=== PATIENT | female | born 1945 | race Caucasian/White ===

== ENCOUNTER 2016-05-19 17:55 | Inpatient (IN) | payer OTHER ==
[~2016-05-19] VITALS: Ht 160 cm; Wt 99.8 kg
[~2016-05-19 17:55] MED LIST: ALBUTEROL0.09 MG/A1 INH; ALBUTEROL2.5 MG/3 M INH/SOL; AZITHROMYCIN250 M1 PO; AZITHROMYCIN500 M3 PO; COUMADIN 5 MG TA5 MG PO; DOCUSATE SODIU100 MG PO; FERROUS SULFAT325 M1 PO; HYDROCHLOROTH12.5 M3 PO; IPRATROPIUM BROM3 M1 INH; LASIX20 MG PO; LEVOTHYROXINE0.05 MG PO; LEVOTHYROXINE125 MCG PO; MASON NATURAL325 MG PO; MEDROL4 M2 PO; MULTIVITAMINS1 EAC9 PO; NEORAL25 M1 PO; NEURONTIN300 MG PO; OXYCONTIN10 MG PO; PERCOCET 325 MG1 TA2 PO; PREDNISONE20 M1 PO; PRILOSEC 20MG C20 MG PO; PROTONIX 40MG T40 MG PO; PROTONIX40 M3 PO; SYMBICORT 160/41 PUF INH
--- NOTE | 2016-05-19 18:13 | ED DYSPNEA/ASTHMA COMPLAINT ---
History of Present Illness General Chief Complaint: Dyspnea (COPD, CHF, Other) Stated Complaint: SOB Source: patient Exam Limitations: no limitations Vital Signs & Intake/Output Vital Signs & Intake/Output Vital Signs Date Time Temp Pulse Resp B/P Pulse O2 O2 Flow FiO2 Ox Delivery Rate 05/19 2224 97.0 84 20 140/84 96 Nasal 4.0L Cannula 05/19 2040 98.1 88 22 140/60 96 Nasal 3.0L Cannula 05/19 BIPAP 40% 05/19 1900 97.2 100 22 100/60 05/19 1837 87 05/19 182 Nasal 4.0L Cannula 05/19 1824 91 22 108/60 96 Aerosol 5.0L Mask 05/19 180 97.0 Allergies Coded Allergies: Penicillins (Severe, ANAPHALACTIC 02/07/16) latex (Severe, "I BLEED ALL OVER" "PUS SPOTS" 02/07/16) Triage Nurses Notes Reviewed? yes HPI: Patient presents for evaluation of severe dyspnea. The patient herself is unable to provide history due to dyspnea and worsening lethargy. According to her family she does not have a history of COPD but instead asthma. She has had worsening of chronic extremity edema. (SAMI NEFF,JIMMY Guthrie) Reconcile Medications Acetaminophen (Tylenol Extra Strength) 500 MG TABLET 2 TAB PO PRN PAIN ( Reported) Albuterol Sulfate (Proair Hfa) 90 MCG HFA.AER.AD 2 PUF INH PRN ASTHMA ( Reported) Ascorbic Acid (Unknown Strength) TABLET (Unknown Dose) PO DAILY SUPPLEMENT ( Reported) Budesonide/Formoterol Fumarate (Symbicort 160-4.5 Mcg Inhaler) 160 MCG-4.5 MCG/ ACTUATION HFA.AER.AD 2 PUF INH BID ASTHMA (Reported) Cyclosporine 100 MG CAPSULE 1 CAP PO Q3D ECZEMA (Reported) Furosemide 20 MG TABLET 1 TAB PO PRN EDEMA (Reported) Gabapentin 300 MG CAPSULE 1 CAP PO 4XDAILY ECZEMA (Reported) Hydrochlorothiazide 12.5 MG CAPSULE 1 CAP PO DAILY BP/DIURETIC (Reported) (ISELA NEFF,CLAIRE) Past History Medical History Any Pertinent Medical History? 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 FATHER (hernia). Hx Contributory? No (SAMI NEFF,JIMMY Guthrie) Review of Systems Review of Systems Constitutional: Reports: no symptoms. EENTM: Reports: no symptoms. Respiratory: Reports: see HPI. Cardiovascular: Reports: no symptoms. GI: Reports: no symptoms. Genitourinary: Reports: no symptoms. Musculoskeletal: Reports: no symptoms. Skin: Reports: see HPI. Neurological/Psychological: Reports: no symptoms. Hematologic/Endocrine: Reports: no symptoms. Immunologic/Allergic: Reports: no symptoms. All Other Systems: Reviewed and Negative Comments Review of systems provided by family, patient unable to provide upon presentation. (SAMI NEFF,JIMMY Guthrie) Physical Exam Physical Exam Respiratory: SEE BELOW Comments: Gen.: Well-nourished, well-developed, no acute respiratory distress. Head: Normocephalic, atraumatic. Eyes: Normal inspection bilaterally, pupils midpoint and round bilaterally Ears: Normal inspection bilaterally Nose: Normal inspection Throat/mouth : Moist mucosa Neck: Supple, full range of motion, no goiter Heart: Regular rate and rhythm, no murmurs rubs or gallops Lungs: Decreased breath sounds bilaterally with no wheezes rales or rhonchi Chest: Nontender Back: Normal range of motion Abdomen: Soft, nontender, nondistended, normal bowel sounds Extremities: Normal range of motion grossly, equal radial pulses, no cyanosis, bilateral hand and ankle/foot pitting edema Neurologic: Cranial nerves grossly intact, speech unable to be assessED, Skin: [place] warm and dry Psychiatric: Calm, cooperative, no apparent delusions or hallucinations Core Measures ACS in differential dx? No Severe Sepsis Present: No Septic Shock Present: No (SAMI NEFF,JIMMY Guthrie) Progress Differential Diagnosis: METABOLIC ACIDOSIS, MYXEDEMA, DEHYDRATION, ALLERGIC REACTION, ELECTROLYTE ABNORMALITY Plan of Care: Orders Procedure Date/time Status Regular Diet 05/20 B Active CBC WITHOUT DIFFERENTIAL 05/20 06 Active BASIC ELECTROLYTES PLUS BUN&CR 03/03 0600 Active Pathway - chart 05/19 222 Active House Staff 05/19 222 Active Patient Data 05/19 222 Active Intake & Output 05/19 2218 Active LACTIC ACID 05/19 2200 Active Pathway - chart 05/19 2146 Active Patient Data 05/20 2135 Active OXYGEN SETUP (GEN) 05/19 2040 Active Saline Lock 05/19 2040 Active Admit to inpatient 05/19 2040 Active Vital Signs 05/19 2040 Active Activity/Ambulation 05/19 2040 Active Code Status 05/19 2040 Active Add-on Test (ER Only) 05/19 193 Active LACTIC ACID 05/19 1858 Complete ARTERIAL BLOOD GAS (GEN) 05/19 182 Active Telemetry/Spare Parts Clerk 05/19 181 Active TROPONIN LEVEL 05/19 1813 Complete MAGNESIUM 05/19 181 Complete CBC WITHOUT DIFFERENTIAL 05/19 181 Complete B-TYPE NATRIURETIC PEP (BNP) 05/19 181 Complete BASIC METABOLIC PANEL 05/19 181 Complete EKG 05/19 181 Active VTE Mechanical Prophylaxis 05/19 UNK Active Telemetry/Spare Parts Clerk 05/19 UNK Active Current Medications Sig/Desi Start time Last Medication Dose Stop Time Status Admin Enoxaparin Sodium 40 MG DAILY 05/20 1000 AC (Lovenox) Albuterol Sulfate 2 PUF BID 05/19 2200 AC (Ventolin) Budesonide/ 2 PUF BID 05/19 220 AC Formoterol Fumarate (Symbicort) Diphenhydramine HCl 25 MG Q6P PRN 05/19 2200 AC (Benadryl) Sodium Chloride 1,000 ML Q13H 05/19 220 AC (Normal Saline 0.9%) Acetaminophen 650 MG Q6P PRN 05/19 2144 AC (Tylenol) Acetaminophen 1,000 MG Q8P PRN 05/19 214 AC (Ofirmev) Ibuprofen 600 MG Q6P PRN 05/19 2144 AC (Motrin) Oxycodone HCl 5 MG Q6 PRN 05/19 2144 AC (Roxicodone) Levothyroxine Sodium 300 MCG ONCE ONE 05/19 1914 CAN (Synthroid) 05/19 191 Laboratory Tests 05/19/16 1901: Lactic Acid Cancelled 05/19/16 1858: Anion Gap 20 H, Estimated GFR > 60, BUN/Creatinine Ratio 8.8, Glucose 168 H, Lactic Acid 6.5 H, Calcium 9.5, Magnesium 1.3 L, Troponin I 0.02, Pro-B- Natriuretic Pept 113, CBC w Diff NO MAN DIFF REQ, RBC 4.50, MCV 114.8 H, MCH 38.5 H, RDW 18.1 H, MPV 7.6, Gran % 76.9 H, Lymphocytes % 19.9 L, Monocytes % 2.2, Eosinophils % 0.6, Basophils % 0.4, Absolute Granulocytes 9.5 H, Absolute Lymphocytes 2.5, Absolute Monocytes 0.3, Absolute Eosinophils 0.1, Absolute Basophils 0, PUBS MCHC 33.6 05/19/16 1820: pH 7.28 *L, pCO2 40, pO2 80, HCO3 18 L, ABG O2 Sat (Measured) 92.0 L, Carboxyhemoglobin 0.4 L, O2 Concentration % 6L, O2 Delivery Method NEB RX, Phlebotomy Draw Site LEFT RADIAL Initial ED EKG: rate (91), PATIENT'S UNDULATING BASELINE AND CLINICAL TREMORS MAKE THE UNDERLYING RHYTHM OBSCURE BUT i SUSPECT SINUS Prior EKG: unchanged Rhythm Strip: normal sinus rhythm Comments: 05/19/2016 6:58:28 PM patient placed on BiPAP upon arrival. She appears clinically more awake and alert is even answering questions. Blood gas reveals a metabolic acidosis with no signs of carbon monoxide poisoning. The patient has referral swelling and skin redness and pruritus so I have ordered Benadryl for the possibility of an allergic reaction. Given her history of hypothyroidism (patient has not taken her thyroid medicine over the past few days) I will order IV levothyroxin. Attempts at IV placement are ongoing. 05/19/2016 7:20:56 PM patient's case signed out to Dr. Weiss. IV established. (SAMI NEFF,JIMMY Guthrie) Diagnostic Imaging: Viewed by Me: Radiology Read. Discussed w/RAD: Radiology Read. CXR Impression: no acute abnormality, no infiltrates Comments: Improved after initial interventions. BiPAP discontinued. (ISELA NEFF,CLAIRE) Departure Departure Condition: Stable Referrals: CALDERON NEFF,JASON Hartmann (PCP/Family) Departure Forms: Customer Survey General Discharge Information (SAMI NEFF,JIMMY Guthrie) Departure Disposition: STILL A PATIENT Clinical Impression Primary Impression: COPD with exacerbation Secondary Impressions: Metabolic acidosis Admission Note Spoke With: INGA MD,AARTEE Documentation of Exam: Documentation of any treatments & extenuating circumstances including Concerns Regarding Discharge (functional status, medication knowledge or non-compliance, living conditions, etc.) that warrant an admission rather than observation: Supplemental oxygen serial lab exam serial beta agonist nebs medication adjustment pulmonary evaluation continuing care discharge planning (CLAIRE WEISS MD) Critical Care Note Critical Care Note Critical Care Time: 30-74 min (35) (CLAIRE WEISS MD)
--- NOTE | 2016-05-19 18:25 | NUR ---
RECEIVED 70 YO FEMALE BIBA FROM HOME. ACCORDING TO REPORT, PT HAD A SYNCOPE EPIODE ON TOILET WITH LOC X ONE MINUTE. UPON COMING TO, PT DEVELOPED ACUTE SOB. EMS ARRIVED AND O2 SATS WERE 83%. [facility] ARRIVED AND ADMINISTERED COMBI MED NEB TX. PT REFUSED ALL OTHER TREATMENTS FROM [facility] INCLUDING REFUSING IV. PT ARRIVED TO ED APPEARING SOMNOLENT IN APPEARANCE. PT REDDENED ALL OVER. O2 SATS 96% ON 6L O2 VIA MASK. PT NOT ANSWERING QUESTIONS AT THIS TIME. PT MADE ACUITY LEVEL [address] GALLARDO
[2016-05-19 19:05] LABS: ABSOLUTE BASOPHIL COUNT 0 /CUMM (0.0-0.2); ABSOLUTE EOSINOPHIL COUNT 0.1 /CUMM (0.0-0.7); ABSOLUTE GRANULOCYTE CT 9.5 /CUMM (1.4-6.5); ABSOLUTE LYMPH COUNT 2.5 /CUMM (1.2-3.4); ABSOLUTE MONOCYTE COUNT 0.3 /CUMM (0.10-0.60); BASOPHIL % 0.4 % (0.0-2.0); EOSINOPHIL % 0.6 % (0-5); GRANULOCYTE % 76.9 % (42.2-75.2); HEMATOCRIT 51.7 % (37-47); MEAN CORPUSCULAR HGB 38.5 PG (27.0-31.0); MEAN CORPUSCULAR HGB CONC 33.6 G/DL (33.0-37.0); MEAN CORPUSCULAR VOLUME 114.8 FL (81.0-99.0); MEAN PLATELET VOLUME 7.6 FL (7.4-10.4); PLATELET COUNT 240 /CUMM (130-400); RBC DISTRIBUTION WIDTH 18.1 % (11.5-14.5); WHITE BLOOD CELL COUNT 12.3 /CUMM (4.8-10.8)
--- NOTE | 2016-05-19 19:15 | NUR ---
EKG DONE. PT CONNECTED TO - NSR RESP THERAPIST IN TO ADMINISTER MED NEB TX, PERFORM ABG AND CONNECT PT TO BIPAP VENTILATION.
--- NOTE | 2016-05-19 19:17 | NUR ---
PT VERY DIFFICULT VENOUS ACCESS 20 G VOLODYMYR PLACED IN RAC BY MIKY Wakefield RN BLOOD DRAWN DIRECTED. PT MEDICATED DIRECTED, SEE MAR
--- NOTE | 2016-05-19 20:02 | RADIOLOGY REPORT ---
EXAMINATION: XR PORTABLE CHEST CLINICAL INFORMATION: Dyspnea. COMPARISON: 02/29/2016 TECHNIQUE: Portable AP view of the chest was obtained. FINDINGS: Cardiac leads overlie the chest. The lungs are well expanded. No consolidation, edema, or effusion. No pneumothorax. The cardiomediastinal silhouette is within normal limits. No acute osseous abnormality. IMPRESSION: No acute pulmonary findings.
--- NOTE | 2016-05-19 20:07 | NUR ---
BIPAP IN PROGRESS, PT TOLERATING WELL. PT MORE AWAKE AND ALERT AT PRESENT, ANSWERING QUESTIONS APPROPRIATELY
--- NOTE | 2016-05-19 20:11 | NUR ---
CRITICAL TEST RESULTS [id number] THALIA NARVAEZ 70 F TESTS AND RESULTS: LACTIC 6.5 Results received and read back by: KATHY MONTGOMERY Results received date and time: 05/19/162010 The following provider was notified of the results, and read the results back: DR. WEISS Notified date and time: 05/19/16 at 2011
--- NOTE | 2016-05-19 20:26 | NUR ---
TAKEN OFF BIPAP PER DR WEISS. PLACED ON O2 4LNC. PT MORE AWAKE & ALERT. REDNESS ON SKIN HAS DIMINISHED HAS HER LIP & FACIAL SWELLING.
--- NOTE | 2016-05-19 20:41 | NUR ---
PT C/O OF DIZZINESS, STATES SHE HAS FELT IT SINCE SHE CAME IN BUT HAS BECOME WORSE AFTER TAKING BIPAP OFF
--- NOTE | 2016-05-19 20:43 | NUR ---
PHARMACY MIXING MEDICATION NOW, DR WEISS AWARE OF DELAY IN MEDICATION.
[2016-05-19] MEDS ORDERED: GABAPENTIN300 M2 PO (20:52)
[2016-05-19] MEDS ORDERED: CYCLOSPORINE100 M2 PO (20:54)
[2016-05-19] MEDS ORDERED: SYMBICORT 16010.2 GM INH (20:56)
[2016-05-19] MEDS ORDERED: FUROSEMIDE20 M1 PO (20:57)
[2016-05-19] MEDS ORDERED: PROAIR HFA8.5 GM INH (20:57)
[2016-05-19] MEDS ORDERED: HYDROCHLOROTH12.5 M3 PO (20:59)
[2016-05-19] MEDS ORDERED: TYLENOL EXTRA500 M2 PO (21:00)
[2016-05-19] MEDS ORDERED: ASCORBIC ACID250 MG PO (21:00)
--- NOTE | 2016-05-19 22:16 | NUR ---
PT TO ROOM 179 BED 2
--- NOTE | 2016-05-19 22:28 | History & Physical ---
[facility] 05/19/16 2227: General Information and HPI MD Statement: I have seen and personally examined THALIA NARVAEZ and documented this H&P. The patient is a 70 year old F who presented with a patient stated chief complaint of dyspnea and lethargy. Source of Information: patient Exam Limitations: no limitations History of Present Illness: This is a 70-year-old morbidly obese lady with past medical history significant for eczema on cyclosporine therapy, asthma (no recent hx of hospitalization/ intubation), MAXIME not on CPAP, GERD, upper GI bleed, his BIBA for evaluation of dyspnea,lethargy and syncope. Patient states that she took 1200 mg of gabapentin with her cyclosporine medication due to her eczema flareup which has been present for the past 7 days. Patient also reports taking her levothyroxine 125 g which she had not taken for the past 3 days. She also admits drinking 1-2 glasses of wine and that she might have taken her meds with a glass of wine. Patient reports feeling drowsy, lethargic and lightheaded after taking her medication combo. She then experienced labored and lethargy. Patient decided to call her friend who came over to the patient's house and found the patient laying on one side of the bed with an altered mental status, and in a lethargic state. Friend reports patient proceded to having a syncopal event with noticeable cyanotic "blue" lips. EMS was then activated by friend. Saturation levels obtianed on the field was 83% on RA, patient was then put on NRB (sated94%) and was then brought to [facility]. Patient on arrival was somnolent, recieved BiPAP, and when seen later by medical admitting team, she was alert, oriented and able to give history in complete full sentences. Patient denies any recent infection, fever, chills, recent hospital admission for asthma exacerbation/intubation, increased cough, nausea, vomiting, chest pain, palpitation, abdominal pain or dysuria. Allergies/Medications Allergies: Coded Allergies: Penicillins (Severe, ANAPHALACTIC 02/07/16) latex (Severe, "I BLEED ALL OVER" "PUS SPOTS" 02/07/16) Home Med list Acetaminophen (Tylenol Extra Strength) 500 MG TABLET 2 TAB PO PRN PAIN ( Reported) Albuterol Sulfate (Proair Hfa) 90 MCG HFA.AER.AD 2 PUF INH PRN ASTHMA ( Reported) Ascorbic Acid (Unknown Strength) TABLET (Unknown Dose) PO DAILY SUPPLEMENT ( Reported) Budesonide/Formoterol Fumarate (Symbicort 160-4.5 Mcg Inhaler) 160 MCG-4.5 MCG/ ACTUATION HFA.AER.AD 2 PUF INH BID ASTHMA (Reported) Cyclosporine 100 MG CAPSULE 1 CAP PO Q3D ECZEMA (Reported) Furosemide 20 MG TABLET 1 TAB PO PRN EDEMA (Reported) Gabapentin 300 MG CAPSULE 1 CAP PO 4XDAILY ECZEMA (Reported) Hydrochlorothiazide 12.5 MG CAPSULE 1 CAP PO DAILY BP/DIURETIC (Reported) Past History Travel History Traveled to [place] past 21 day No Medical History Neurological: NONE EENT: NONE Cardiovascular: NONE Respiratory: asthma, COPD Gastrointestinal: GERD, upper GI bleed Hepatic: NONE Renal: NONE Musculoskeletal: ECZEMA Psychiatric: NONE Endocrine: NONE Blood Disorders: NONE Cancer(s): NONE 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 FATHER (hernia). Psychosocial History Services at Home: None Functional Ability ADLs Independent: dressing, eating, toileting, bathing. Ambulation: independent, cane, walker, non-ambulatory Review of Systems Review of Systems Constitutional: Reports: see HPI. EENTM: Denies: blurred vision, double vision. Cardiovascular: Denies: palpitations, peripheral edema. Respiratory: Reports: short of breath. GI: Denies: distention, bowel incontinence, melena. Genitourinary: Denies: frequency, hematuria, hesitation. Musculoskeletal: Denies: joint pain, joint swelling, muscle pain. Skin: Reports: rash. Neurological/Psychological: Denies: confusion, depressed, dementia, numbness. Hematologic/Endocrine: Denies: bruising, bleeding, polyuria, polydipsia. Immunologic/Allergic: Reports: no symptoms. All Other Systems: Reviewed and Negative Exam & Diagnostic Data Last 24 Hrs of Vital Signs/I&O Vital Signs Date Time Temp Pulse Resp B/P Pulse O2 O2 Flow FiO2 Ox Delivery Rate 05/20 0000 Nasal 4.0L Cannula 05/19 2308 97.7 91 20 160/82 96 Nasal 4.0L Cannula 05/19 2224 97.0 84 20 140/84 96 Nasal 4.0L Cannula 05/19 204 98.1 88 22 140/60 96 Nasal 3.0L Cannula 05/20 2007 96 BIPAP 40% 05/19 1900 97.2 100 22 100/60 05/19 1837 87 05/19 1825 Nasal 4.0L Cannula 05/19 1824 91 22 108/60 96 Aerosol 5.0L Mask 05/19 1804 97.0 Intake & Output 05/20 0800 05/20 0000 05/19 1600 Intake Total 120 Output Total Balance 120 Intake, Oral 120 Patient 99.79 kg Weight Physical Exam General Appearance Alert, Oriented X3, Cooperative Skin diffuse skin eruption with excoriations HEENT Atraumatic Neck No JVD, No thryomegaly Lymphatic Cervical nl Cardiovascular Regular Rate, Normal S1, Normal S2, No Murmurs, Gallops, Rubs Lungs Clear to Auscultation, Normal Air Movement Abdomen Normal Bowel Sounds, Soft, No Tenderness Neurological Normal Speech, Sensation Intact Extremities No Clubbing, No Cyanosis, No Tenderness/Swelling, b/l hand swelling Vascular Pulses Symmetrical Last 24 Hrs of Labs/Carlos: Laboratory Tests 05/20/16 0300: Urine Opiates Screen < 100.00, Methadone Screen 46, Barbiturate Screen < 60, Ur Phencyclidine Scrn < 6.00, Amphetamines Screen < 100, U Benzodiazepines Scrn < 85, Urine Cocaine Screen < 50, Urine Cannabis Screen < 5.00 05/20/16 0130: Lactic Acid 3.4 H, Troponin I 0.02 05/19/16 2252: Lactic Acid 3.0 H 05/19/16 1901: Lactic Acid Cancelled 05/19/16 1858: Anion Gap 20 H, Estimated GFR > 60, BUN/Creatinine Ratio 8.8, Glucose 168 H, Lactic Acid 6.5 H, Calcium 9.5, Magnesium 1.3 L, Troponin I 0.02, Pro-B- Natriuretic Pept 113, TSH 24.200 H, Free T4 1.06, CBC w Diff NO MAN DIFF REQ, RBC 4.50, MCV 114.8 H, MCH 38.5 H, RDW 18.1 H, MPV 7.6, Gran % 76.9 H, Lymphocytes % 19.9 L, Monocytes % 2.2, Eosinophils % 0.6, Basophils % 0.4, Absolute Granulocytes 9.5 H, Absolute Lymphocytes 2.5, Absolute Monocytes 0.3, Absolute Eosinophils 0.1, Absolute Basophils 0, PUBS MCHC 33.6 05/19/161819: pH 7.28 *L, pCO2 40, pO2 80, HCO3 18 L, ABG O2 Sat (Measured) 92.0 L, Carboxyhemoglobin 0.4 L, O2 Concentration % 6L, O2 Delivery Method NEB RX, Phlebotomy Draw Site LEFT RADIAL Diagnostic Data CXR Results SERVICE DATE: 05/19/16-1812 EXAM TYPE: RAD - XRY-PORTABLE CHEST XRAY EXAMINATION: XR PORTABLE CHEST CLINICAL INFORMATION: Dyspnea. COMPARISON: 02/29/2016 TECHNIQUE: Portable AP view of the chest was obtained. FINDINGS: Cardiac leads overlie the chest. The lungs are well expanded. No consolidation, edema, or effusion. No pneumothorax. The cardiomediastinal silhouette is within normal limits. No acute osseous abnormality. IMPRESSION: No acute pulmonary findings. DICTATED BY: KIKO ESPINO MD Assessment/Plan Assessment: This is a 70-year-old morbidly obese patient with a significant past medical history of obstructive sleep apnea not on CPAP, asthma?, Hypothyroidism, eczema presents for evaluation of dyspnea, and syncope .At the ED patient was placed on BiPAP on arrival. Assessment and plan #Acute dyspnea with syncope Patient has multiple comorbidities including obstructive sleep apnea, morbid obesity, hypothyroidism, asthma, which predisposes her to high risk of respiratory distress. Patient acute episode of dyspnea with syncope, could possibly secondary to drug poisoning from taking the medications not according to prescription directions (took gapentin 1200mg) in addition to a glass of wine. It is noted that her ABG does not reflect hypercapnia. Patient reports being cyanotic, carbon monoxide posoning is a differential, however carboxyhemoglobin levels obtained was unremarkable. Plan Admit to telemetry 02 supplementation to keep sats above 90% Will continue pulse oximetry will recheck ABGs Will check troponin Will obtain urine tox #Metabolic acidosis with anion gap Patient has decreased bicarbonate, normal ABG co2, and an elevated lactic acid level which is indicative of metabolic acisodis. Possible etiology for patient's lactic acidosis include hypoperfusion. Plan Will trend lactic acid level IV hydration NS 100ml/h #History of hypothyroidism Will obtain TSH and free T4 levels Patient was given 200 g of levothyroxine at the ED, possibly due to concerns of myxedema, in the setting of dyspnea and lethargy. #History of asthma Continue Symbicort and albuterol inhaler TRC/ nebs #History of severe eczema Continue cyclosporine for now As Ranked By This Provider Problem List: 1. Metabolic acidosis 2. Hypoxia Core Measures/Miscellaneous Acute Coronary Syndrome ACS Diagnosis: No Cerebrovascular Accident CVA/TIA Diagnosis: No Congestive Heart Failure CHF Diagnosis: No Venous Thromboembolism VTE Risk Factors: Age > 40 No [facility] VTE prophylaxis d/t: No contraindications No VTE Pharm Prophylaxis d/t: No contraindications VTE Diagnosis: No VTE Type: NONE VTE Confirmed by (Test): NONE Severe Sepsis Severe Sepsis Present: No Septic Shock Septic Shock Present: No Miscellaneous Documentation Attending Case Discussed With: SELENA XIONG MD Primary Care Physician: JASON MANCERA MD 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 Patient reported that she has been having eczema flare for the last 7 days, today she was having severe itchiness, she took 4 tablets of 300 mg of gabapentin with cyclosporine. She has not been taking her levothyroxine for couple of days, but today she took her dose of levothyroxine as well. After taking all the medication, she felt drowsy and lethargic and became lightheaded. Her lips turned blue, and her breathing was compromised. She called her friend and was found altered on the side of the bed, 911 was called in and she was immediately brought to the ER for further assessment. In the ED patient was found to be in acute distress, and was put on BiPAP ABGs revealed pure metabolic acidosis. She received one-time dose of IV Solu-Medrol 125 mg and IV Benadryl 50 mg and her symptoms improved. Also she received 1 dose of IV levothyroxin 200 mcg, in a view that patient was not taking her levothyroxin for quite a while. Vitals on admission temperature 97.2, pulse 100, blood pressure 100/60, off BiPAP saturating more than 92% on 4 L. General Appearance: Alert and oriented 3, not in acute distress. Skin: Grossly normal HEENT: PEERLA Neck: Supple, No JVD Cardiovascular: Regular Rate, Normal S1, Normal S2, No Murmurs Lungs: Lungs clear to auscultation bilaterally without any wheeze or rhonchi. Abdomen: Normal Bowel Sounds, left lower quadrant tenderness without any rebound. Neurological: Normal Speech, Strength at 5/5 X4 Ext, Cranial Nerves 3-12 NL, Reflexes 2+ Extremities: Generalized skin eruptions with excoriations, swelling bilaterally in the hands. Vascular: Normal Pulses . Pertinent labs: Leukocytosis 12.3 without any anemia, elevated anion gap 20, elevated lactic acid levels 6.5, hypomagnesemia 1.3\\ ABG done in the ED showed pH of 7.28, bicarbonate : 18, PCO2 40, PO2 20 Chest x-ray was normal Assessment and plan: This is [id number] woman obese cushingoid habitus, past medical history significant for GERD, upper GI bleed, eczema on cyclosporine, history of asthma, sleep apnea not on CPAP presented to the ED with a chief complaints of worsening dyspnea,lethargy and altered mental status for couple of hours, after she overdosed herself with gabapentin cyclosporine due to severe itchiness. In the ED patient was found to be in acute distress, and was put on BiPAP ABGs revealed pure metabolic acidosis. She received one-time dose of IV Solu-Medrol 125 mg and IV Benadryl 50 mg and her symptoms improved. Also she received 1 dose of IV levothyroxin 200 mcg, in a view that patient was not taking her levothyroxin for quite a while. 1. Acute respiratory distress with altered mental status possible drug toxicity /allergic reaction: * We'll admit the patient to telemetry floor for close monitoring. * We will recheck the ABG now * Continue with gentle hydration * By mouth Benadryl 25 mg every 8 hours as needed for itchiness * Trend lactate acid levels. * Check urine toxicology * Continue his pulse oximetry * Neurochecks every 4 hours * We will check another troponin. 2. History of hypothyroidism: * Will check TSH and free T4 levels. 3. History of hypertension * Hold hydrochlorothiazide for now. 4. History of severe eczema * Continue cyclosporine from the morning. * Hold gabapentin for now. 5. History of asthma, questionable COPD * Continue home medications including Symbicort and albuterol inhalers. * TRC nebs. 6. History of GERD * Continue PPI. 7. Mild to moderate pain controlled with Tylenol 8 DVT prophylaxis with Lovenox 9. Patient is full code SELENA XIONG 05/20/16 0454: Attending MD Review Statement Attending Statement Attending MD Statement: examined this patient, discuss w/resident/PA/J2EE SOFTWARE ENGINEER, agreed w/resident/PA/J2EE SOFTWARE ENGINEER, discussed with family, reviewed EMR data (avail), reviewed images, amended to note Attending Assessment/Plan: CC: Syncope, bluish discoloration, SOB pmh: Asthma, MAXIME not on CPAP, GERD, peptic ulcer, eczema, HTN, HLD, hypothyroidism She is supposed to be on Lasix, HCTZ, levothyroxine and PPI which she stopped taking all by herself because she is taking too many medications. She is compliant with her inhalers and Cyclospora and and gabapentin for eczema. Never smoked. She is to get very frequent asthma flares at home, but she removed all the drugs from her home and asthma flares are much better now. Patient's eczema was getting worse since yesterday according to her, intensely itching since the day before, all over her body. Next day her itching was worse and was not getting better with anything so she took several pills of gabapentin for symptom relief along with Cyclosporin. She also drinks a couple of glasses of wine every day, with meals. After all this medications patient was feeling very dizzy and almost passed out 2 to 3 times, she called her neighbor for help. Her neighbor found her in some distress, then later on patient passed out in front of neighbor and turned blue. So she called EMS. Patient was saturating 83% when EMS arrived and had acute shortness of breath. She received nebulization treatment and was placed on NRB, patient was somnolent at arrival in ER. Keron all over. Saturating 96% on mask. ABG was obtained and She patient was immediately put on BiPAP in ER for some time, before we were called. Patient was symptomatically better by that time, talking in complete sentences, shortness of breath better but complaining of some throat pain and dryness. Vitals: Afebrile, tachypneic, blood pressure 100/64 on presentation improved later on, initially on BiPAP for 2 hours later on 96% at 4 L on examination: Mild respiratory distress, obese, a O 3, neck supple, no JVD, pharynx congested , mucosa dry, no focal neurological deficits. CVS: S1-S2, RRR. RS: Clear to auscultate bilaterally. No wheezing, no crackles. Abdomen: Soft, obese, NT, ND, bowel sounds present., Mild pitting edema bilateral lower extremity. Extensive skin rash eczema, macular. Does not have hives or urticarial. Labs: WBC 12.3, hemoglobin 17.4, hematocrit 51.7, MCV 114, platelets 240, lactate 9.5, anion gap 20, proBNP 113, troponin 0.02. ABG: PH 7.28/PCO2 14/PaO2 80/bicarbonate 18 on 6 L. EKG: No acute changes. CXR: No acute changes. A and P #1 syncope: Probably secondary to polypharmacy and overdose, patient took multiple gabapentin tablets along with alcohol. According to friend patient would not be woken up and was bluish discoloration lips and fingers. Admit to telemetry, rule out arrhythmias, neurochecks, U tox. Had liver function test to sample in lab if not done. If LFT deranged obtain ammonia. Second possibility is patient may have had some allergic reaction with extensive itching all over with the redness and bronchospasm, and passing out after that. Patient received methylprednisolone in ER along with Benadryl in BiPAP treatment and now much better. Continue scheduled Benadryl 25 mg by mouth for 2 more doses. Continue gentle hydration and 75 mL per hour, if patient's more altered obtain ABG. Continuous pulse oxy overnight. #2 lactic acidosis: Probably secondary to hypotension and syncope. Patient may have had hypotension at field which is not documented her blood pressure was low in ER. No obvious source of infection. Possibility of seizures cannot be denied, but they were not witnessed, no postictal confusion, no bowel or bladder incontinence. Hypoxia may have contributed to lactic acidosis. Trend lactic acid , continue gentle hydration #3 noncompliance, patient is not taking her medications for hypothyroidism, hypertension and dyslipidemia. Obtain T3-T4 TSH, hold off antihypertensive for now. Monitor blood pressures overnight, HCTZ according to blood pressure. Patient received 200 g IV levothyroxin in ER. #4 asthma : TRC when necessary albuterol. Currently patient not having bronchospasm, AP she is not significant for any CO2 retention or respiratory acidosis. Patient refused repeat ABG. #5 metabolic acidosis: Probably secondary to lactic acidosis. Continue gentle hydration. Repeat BMP in a.m. #6 macrocytosis with MCV 114: History of alcoholism. Check vitamin B-12, folic acid.
--- NOTE | 2016-05-19 22:43 | NUR ---
PT ADMITTED TO ROOM # 179-2. ORAL REPORT GIVEN TO VIKA GREENE
[2016-05-19 23:08] VITALS: BP 160/82
--- NOTE | 2016-05-20 04:56 | Admission Certification ---
Admission Certification Certification Statement - As attending physician, I certify that at the time of - admission, based on clinical presentation, severity of - symptoms, need for further diagnostic testing and - therapeutic interventions, and risk of adverse outcomes - without in-hospital treatment, in my clinical assessment, - this patient requires an acute hospital stay for a minimum - of two nights or longer. I have also considered psychsocial - factors such as support system, advanced age, financial - issues, cognitive issues, and failed out-patient treatments, - past re-admission history, safety of patient, and lack of - compliance as applicable. Specific rationale supporting this admission is: Syncope, acute worsening of shortness of breath, lactic acidosis.
[2016-05-20 05:34] LABS: ABSOLUTE BASOPHIL COUNT 0.2 /CUMM (0.0-0.2); ABSOLUTE EOSINOPHIL COUNT 0 /CUMM (0.0-0.7); ABSOLUTE GRANULOCYTE CT 13.5 /CUMM (1.4-6.5); ABSOLUTE LYMPH COUNT 0.6 /CUMM (1.2-3.4); ABSOLUTE MONOCYTE COUNT 0.1 /CUMM (0.10-0.60); BASOPHIL % 1.2 % (0.0-2.0); EOSINOPHIL % 0 % (0-5); GRANULOCYTE % 93.9 % (42.2-75.2); MEAN CORPUSCULAR HGB 38.4 PG (27.0-31.0); MEAN CORPUSCULAR HGB CONC 33.6 G/DL (33.0-37.0); MEAN PLATELET VOLUME 7.8 FL (7.4-10.4); PLATELET COUNT 213 /CUMM (130-400); RBC DISTRIBUTION WIDTH 17.8 % (11.5-14.5); RED BLOOD CELL CT 4.02 /CUMM (4.20-5.40); WHITE BLOOD CELL COUNT 14.4 /CUMM (4.8-10.8)
[2016-05-20 05:55] LABS: MEAN CORPUSCULAR VOLUME 114.3 FL (81.0-99.0)
--- NOTE | 2016-05-20 07:02 | PN- Housestaff ---
JANA NEFF,COURTNEY 05/20/16 0702: Subjective Follow-up For: Syncope Lactic and metabolic acidosis Hypotension Possible drug overdose (gabapentin) Tele-Events Since Last Visit: NSR HR 72-90, no overnight events. Subjective: Patient seen and examined at bedside this AM. She reports her dypsnea is improved to baseline and she denies cough, wheezing or confusion. Patient continues to report she was given gabapentin for itching and she was counseled on not using gabapentin excessively and considering using benadryl (not while drinking or driving) for her itching. Review of Systems Constitutional: Denies: chills, fever, weakness. EENTM: Denies: blurred vision, visual changes, hearing changes, nasal congestion. Cardiovascular: Reports: syncope (Prior to admission). Denies: chest pain, palpitations. Respiratory: Denies: cough, short of breath, wheezing. Gastrointestinal: Denies: abdominal pain, bloating, constipation, diarrhea, nausea, vomiting. Genitourinary: Denies: dysuria. Musculoskeletal: Denies: back pain. Skin: Reports: dryness, lesions (Generalized excoriations). Neurological/Psychological: Reports: numbness, paresthesia. Denies: confusion, headache. Hematologic/Endocrine: Denies: bleeding. Objective Last 24 Hrs of Vital Signs/I&O Vital Signs Date Time Temp Pulse Resp B/P Pulse O2 O2 Flow FiO2 Ox Delivery Rate 05/20 0808 97.7 76 18 140/85 96 Nasal 4.0L Cannula 05/20 0800 92 Nasal 4.0L Cannula 05/20 0000 Nasal 4.0L Cannula 05/19 2308 97.7 91 20 160/82 96 Nasal 4.0L Cannula 05/19 2224 97.0 84 20 140/84 96 Nasal 4.0L Cannula 05/19 2041 98.1 88 22 140/60 96 Nasal 3.0L Cannula 05/19 2008 96 BIPAP 40% 05/19 1900 97.2 100 22 100/60 05/19 1837 87 05/19 1825 Nasal 4.0L Cannula 05/19 1824 91 22 108/60 96 Aerosol 5.0L Mask 05/19 1804 97.0 Intake & Output 05/20 1600 05/20 0800 05/20 0000 Intake Total 840 120 Output Total 700 Balance 140 120 Intake, IV 600 Intake, Oral 240 120 Output, Urine 700 Patient 220 lb Weight Physical Exam General Appearance: Alert, Oriented X3, Cooperative, No Acute Distress Skin: Generalized excoriations with noted scratch lines. No s/s infection. HEENT: Atraumatic, PERRLA, EOMI, Mucous Membr. moist/pink Neck: Supple, +2 Carotid Pulse wo Bruit Lymphatic: Cervical nl Cardiovascular: Regular Rate, Normal S1, Normal S2 Lungs: Decreased air entry bilaterally, no wheezing, rhonchi or added sounds Abdomen: Normal Bowel Sounds, Soft, No Tenderness Neurological: Normal Speech, Strength at 5/5 X4 Ext, Normal Tone Extremities: No Clubbing, No Cyanosis, No Edema Vascular: Pulses Symmetrical Current Medications: Current Medications Sig/Desi Start time Last Medication Dose Route Stop Time Status Admin Acetaminophen 650 MG .STK-MED ONE 05/20 0301 DC PO 05/20 0302 Acetaminophen 650 MG Q6P PRN 05/19 2145 05/20 PO 0815 Acetaminophen 1,000 MG Q8P PRN 05/19 2145 AC IV Albuterol Sulfate 2 PUF BID 05/19 2200 AC 05/20 INH 0807 Albuterol Sulfate 3 ML ONCE ONE 05/19 1815 DC 05/19 INH 05/19 1816 1817 Budesonide/ 2 PUF BID 05/19 2200 AC 05/20 Formoterol Fumarate INH 0805 Diphenhydramine HCl 25 MG Q8P PRN 05/20 0015 AC PO Diphenhydramine HCl 25 MG Q6P PRN 05/19 2200 DC IV Diphenhydramine HCl 0 .STK-MED ONE 05/19 1908 DC .ROUTE Diphenhydramine HCl 50 MG ONCE ONE 05/19 1845 DC 05/19 IV 05/19 1846 1914 Enoxaparin Sodium 40 MG DAILY 05/20 1000 AC SC Folic Acid 1 MG DAILY 05/20 1137 AC PO Ibuprofen 600 MG Q6P PRN 05/19 2145 AC PO Levothyroxine Sodium 200 MCG ONCE ONE 05/19 1930 DC 05/19 IV 05/19 1931 2157 Levothyroxine Sodium 300 MCG ONCE ONE 05/19 1915 CAN IV 05/19 1916 Magnesium Sulfate 1 GM ONCE ONE 05/20 0315 DC 05/20 N/A 1 UNIT IV 05/20 0514 0333 Magnesium Sulfate 1 GM ONCE ONE 05/20 0115 DC 05/20 N/A 1 UNIT IV 05/20 0314 0106 Methylprednisolone 0 .STK-MED ONE 05/19 1908 DC .ROUTE Methylprednisolone 125 MG ONCE ONE 05/19 1814 DC 05/19 IV 05/19 181 191 Oxycodone HCl 5 MG Q6 PRN 05/19 2145 DC PO Sodium Chloride 1,000 ML Q13H 05/19 2200 AC 05/20 IV 1003 Last 24 Hrs of Lab/Carlos Results Last 24 Hrs of Labs/Mics: Laboratory Tests 05/20/16 0858: Lactic Acid Cancelled 05/20/16 0510: Lactic Acid 2.8 H 05/20/16 0510: Anion Gap 11, Estimated GFR > 60, BUN/Creatinine Ratio 13.3, CBC w Diff NO MAN DIFF REQ, RBC 4.02 L, MCV 114.3 H, MCH 38.4 H, RDW 17.8 H, MPV 7.8, Gran % 93.9 H, Lymphocytes % 4.1 L, Monocytes % 0.8 L, Eosinophils % 0, Basophils % 1.2, Absolute Granulocytes 13.5 H, Absolute Lymphocytes 0.6 L, Absolute Monocytes 0.1 L, Absolute Eosinophils 0, Absolute Basophils 0.2, PUBS MCHC 33.6 05/20/16 0300: Urine Opiates Screen < 100.00, Methadone Screen 46, Barbiturate Screen < 60, Ur Phencyclidine Scrn < 6.00, Amphetamines Screen < 100, U Benzodiazepines Scrn < 85, Urine Cocaine Screen < 50, Urine Cannabis Screen < 5.00 05/20/16 0130: Lactic Acid 3.4 H, Total Bilirubin 1.4 H, Direct Bilirubin 1.0 H, AST 54 H, ALT 42, Alkaline Phosphatase 93, Troponin I 0.02, Total Protein 6.7, Albumin 3.6 05/19/16 2252: Lactic Acid 3.0 H 05/19/16 1901: Lactic Acid Cancelled 05/19/16 1858: Anion Gap 20 H, Estimated GFR > 60, BUN/Creatinine Ratio 8.8, Glucose 168 H, Lactic Acid 6.5 H, Calcium 9.5, Magnesium 1.3 L, Troponin I 0.02, Pro-B- Natriuretic Pept 113, Vitamin B12 291, Folate 2.3 L, TSH 24.200 H, Free T4 1.06, CBC w Diff NO MAN DIFF REQ, RBC 4.50, MCV 114.8 H, MCH 38.5 H, RDW 18.1 H, MPV 7.6, Gran % 76.9 H, Lymphocytes % 19.9 L, Monocytes % 2.2, Eosinophils % 0.6, Basophils % 0.4, Absolute Granulocytes 9.5 H, Absolute Lymphocytes 2.5, Absolute Monocytes 0.3, Absolute Eosinophils 0.1, Absolute Basophils 0, PUBS MCHC 33.6 05/19/16 1820: pH 7.28 *L, pCO2 40, pO2 80, HCO3 18 L, ABG O2 Sat (Measured) 92.0 L, Carboxyhemoglobin 0.4 L, O2 Concentration % 6L, O2 Delivery Method NEB RX, Phlebotomy Draw Site LEFT RADIAL Orders Radiology Findings: CXR: IMPRESSION: No acute pulmonary findings. Assessment/Plan Assessment: Ms. Ayala is a pleasant 70 year old female with PMH eczema on cyclosporine therapy, asthma with no recent history of hospitalization or intubation, MAXIME not on CPAP secondary to patient refusal, HTN, HLD, GERD and hypothyroidism who presented to the ED with chief complaint of syncope, shortness of breath and lethargy. Patient was transported to the hospital via EMS who noted to be hypoxic to 83% on room air. In the ED: Vital signs showed T 97.0, HR 91, RR 22, BP 108/60 and O2 saturation of 96% on 5L venti mask. Pertinent labs showed leukocytosis 12.3, no anemia, elevated anion gap to 20, elevated lactic acid level to 6.5 and hypomagnesemia 1.3. CXR showed no acute findings. ABG showed pH of 7.28, bicarbonate 18, PCO2 40, PO2 20. Patient is currently admitted to the telemetry floor and the following is the management: 1. Possible syncope with altered mental status with lethargy * Likely secondary to unintentional overdose/drug toxicity with gabapentin in the setting of alcohol use * Continous telemetry monitoring to rule out arrhythmia * Hold gabapentin for now, utox negative * Mentation currently returning to baseline 2. Acute respiratory failure with hypoxia in the setting of chronic asthma * Likely 2/2 overdose with gabapentin (1200 mg) resulting in decreased respiratory drive and hypoxia * DDimer has been added to workup, patient will also require CTA to rule out PE as cause of syncope * Pulm consult with Dr. Meyers appreciated * Provide supplemental O2 to keep sat >92%, continue * Continue home inhalers * Will obtain PFTs and sleep study workup from patient's pattern maker 3. Metabolic and lactic acidosis * ABG suggestive of metabolic acidosis * Metabolic acidosis likely 2/2 lactic acidosis from hypotension during syncope as EMS noted patient was hypotensive * Continue maitenance fluids for now 4. Medical noncompliance * Address need for patient to take gabapentin only as directed * Addressed the need for patient to use hydrocortisone cream (topical) for improved relief of itching FULL CODE Regular diet Mild pain pathway DVTP: SC Lovenox Problem List: 1. Metabolic acidosis 2. Hypoxia 3. Full code status 4. DVT prophylaxis 5. Eczema 6. Acute respiratory failure with hypoxia 7. Syncope Pain Ratin Pain Location: n/a Pain Goal: Remain pain free Pain Plan: Mild pain pathway Tomorrow's Labs & Rationales: CBC (monitor leukocytosis), BEP (monitor electrolytes with hypomagnesemia Patient refused some blood draws this AM LAUREN BETANCUR MD 05/20/16 1400: Attending MD Review Statement Attending Statement Attending MD Statement: examined this patient, discuss w/resident/PA/ASSET LIABILITY ANALYST, agreed w/resident/PA/ASSET LIABILITY ANALYST, reviewed EMR data (avail), discussed with nursing, discussed with case mgmt, amended to note Attending Assessment/Plan: Patient seen and examined. She is alert and l oriented 3. Conversing appropriately. Very eager to sign out of the hospital AGAINST MEDICAL ADVICE this morning. She however was found to be saturating 84% on room air. I was able to convince her to remain in the hospital for further management. On examination she did not appear to be in respiratory distress. She denies shortness of breath or chest pain. She had fair entry bilaterally with no added sounds. She has trace peripheral edema. She has very thick neck. I did speak with the patient's primary pattern maker. He reports that patient does not carry a history of COPD. She has a history of obstructive sleep apnea and asthma. He reports that she may have a component of obesity hypoventilation syndrome. Patient admits to taking extra dose of gabapentin prior to presentation in addition to a sip of wine. At baseline she denies any wheezing. She denies any dyspnea on exertion. Denies any chest pain. She is not tachycardic. She has not been sedentary. She denies any have swelling or pain. Problems: 1. Acute hypoxic respiratory insufficiency 2. Syncope 3. Lactic acidosis of uncertain etiology 4. Asthma (no history of COPD per her pattern maker) 5. Obstructive sleep apnea; refused CPAP therapy 6. Eczema Plan: -Her hypoxic is likely secondary to hypoventilation in the setting of noncompliance with CPAP therapy and reduced mentation from polypharmacy. Her asymptomatic status suggest some chronicity to her hypoxia. -Pulmonary evaluation appreciated. Patient Wells score appears low at 0. However CT angiogram has been recommended to rule out pulmonary embolism. Add d -dimer to her workup. -Continue oxygen supplementation. Taper off as tolerated. Cardiology Tech reports no episodes of hypoxemia in the office. We will evaluate for need of home oxygen prior to discharge -She does not appear to be bronchospasm at present. Continue her routine bronchodilator regimen. Hold off systemic steroid therapy for now. -Her leukocytosis is likely secondary to the steroids she received on admission. No evidence of infection. -She reports chronic pruritus for which she uses gabapentin. She reports that Benadryl was more effective. Due to concerns for hypoventilation would recommend avoiding sedatives in this patient. I suggested she begins to utilize the hydrocortisone cream prescribed to her by her reconditioning associate. She may continue gabapentin upon discharge but at the prescribed doses which she has been taking for several months. She does not show any evidence of allergic reaction. She has no hives on examination. She has no tongue swelling. She has been tolerating gabapentin for several months. -Anticipate discharge in next i24-48 hours if her respiratory status remains stable. Reevaluate need for home oxygen therapy at the time of discharge. I have advised her to follow-up with her pattern maker regarding therapy for her obstructive sleep apnea. - The cause of her lactic acidosis is still unexplained. However numbers are trending down with hydration. -
[2016-05-20 08:08] VITALS: BP 140/85
--- NOTE | 2016-05-20 09:09 | NUR ---
PATIENT IS REFUSING LAB WORK AND LOVENOX; MD COURTNEY BATES MADE AWARE.
--- NOTE | 2016-05-20 14:02 | Cons- Pulmonary ---
General Information and HPI Consulting Request Date of Consult: 05/20/16 Requested By: tara Reason for Consult: Respiratory failure History of Present Illness: Patient is 70-year-old who carries diagnosis of asthma obstructive sleep apnea hypothyroidism admitted after an episode of loss of consciousness associated with lactic acidosis and hypoxic respiratory failure. Patient was 100 presentation treated with BiPAP and improved significantly she is presently awake alert denies shortness breath but continues to require low flow nasal oxygen. In February she was admitted with suspected asthma/COPD exacerbation. Room air oxygen was 93%. Echocardiogram in FebruaryFebruary 2016 that did not show pulmonary hypertension. Allergies/Medications Allergies: Coded Allergies: Penicillins (Severe, ANAPHALACTIC 02/07/16) latex (Severe, "I BLEED ALL OVER" "PUS SPOTS" 02/07/16) Home Med List: Acetaminophen (Tylenol Extra Strength) 500 MG TABLET 2 TAB PO PRN PAIN ( Reported) Albuterol Sulfate (Proair Hfa) 90 MCG HFA.AER.AD 2 PUF INH PRN ASTHMA ( Reported) Ascorbic Acid (Unknown Strength) TABLET (Unknown Dose) PO DAILY SUPPLEMENT ( Reported) Budesonide/Formoterol Fumarate (Symbicort 160-4.5 Mcg Inhaler) 160 MCG-4.5 MCG/ ACTUATION HFA.AER.AD 2 PUF INH BID ASTHMA (Reported) Cyclosporine 100 MG CAPSULE 1 CAP PO Q3D ECZEMA (Reported) Furosemide 20 MG TABLET 1 TAB PO PRN EDEMA (Reported) Gabapentin 300 MG CAPSULE 1 CAP PO 4XDAILY ECZEMA (Reported) Hydrochlorothiazide 12.5 MG CAPSULE 1 CAP PO DAILY BP/DIURETIC (Reported) Review of Systems Review of Systems Constitutional: Denies: chills, fever, malaise. Cardiovascular: Denies: chest pain, edema. Respiratory: Denies: cough, hemoptysis, short of breath, sputum production, wheezing. GI: Denies: abdominal pain, bloating, diarrhea. Past History Travel History Traveled to [place] past 21 day No Medical History Blood Transfusion Hx: No Neurological: NONE EENT: NONE Cardiovascular: NONE Respiratory: asthma, COPD Gastrointestinal: GERD, upper GI bleed Hepatic: NONE Renal: NONE Musculoskeletal: ECZEMA Psychiatric: NONE Endocrine: NONE Blood Disorders: NONE Cancer(s): NONE TELEVISION REPAIRMAN/Reproductive: NONE Other Medical Hx: ECZEMA Surgical History Surgical History: knee replacement, LASER VEIN SURGERY RIGHT ANKLE FRACTURE Family History Relations & Conditions If Any: MOTHER (Alzheimer's disease). FATHER (hernia). Psychosocial History Where Do You Live? Home Services at Home: None Smoking Status: Never Smoked Functional Ability ADLs Independent: dressing, eating, toileting, bathing. Ambulation: independent, cane, walker, non-ambulatory Exam & Diagnostic Data Last 24 Hrs of Vital Signs/I&O Vital Signs Date Time Temp Pulse Resp B/P Pulse O2 O2 Flow FiO2 Ox Delivery Rate 05/20 0808 97.7 76 18 140/85 96 Nasal 4.0L Cannula 05/20 0800 92 Nasal 4.0L Cannula 05/20 0000 Nasal 4.0L Cannula 05/19 2308 97.7 91 20 160/82 96 Nasal 4.0L Cannula 05/19 2224 97.0 84 20 140/84 96 Nasal 4.0L Cannula 05/19 2041 98.1 88 22 140/60 96 Nasal 3.0L Cannula 05/19 2008 96 BIPAP 40% 05/19 1900 97.2 100 22 100/60 05/19 1837 87 05/19 1825 Nasal 4.0L Cannula 05/19 1824 91 22 108/60 96 Aerosol 5.0L Mask 05/19 1804 97.0 Intake & Output 05/20 1600 05/20 0800 05/20 0000 Intake Total 840 120 Output Total 700 Balance 140 120 Intake, IV 600 Intake, Oral 240 120 Output, Urine 700 Patient 220 lb Weight Ox and saturation 4 L 96% she is awake alert exam for chest shows clear lung low are no wheezes cardiac exam shows regular S1 and S2 without murmurs abdominal exam is soft nontender her extremities are without calf tenderness Last 48 Hrs of Labs/Carlos: Laboratory Tests 05/20/16 0858: Lactic Acid Cancelled 05/20/16 0510: Lactic Acid 2.8 H 05/20/16 0510: Anion Gap 11, Estimated GFR > 60, BUN/Creatinine Ratio 13.3, CBC w Diff NO MAN DIFF REQ, RBC 4.02 L, MCV 114.3 H, MCH 38.4 H, RDW 17.8 H, MPV 7.8, Gran % 93.9 H, Lymphocytes % 4.1 L, Monocytes % 0.8 L, Eosinophils % 0, Basophils % 1.2, Absolute Granulocytes 13.5 H, Absolute Lymphocytes 0.6 L, Absolute Monocytes 0.1 L, Absolute Eosinophils 0, Absolute Basophils 0.2, PUBS MCHC 33.6 05/20/16 0300: Urine Opiates Screen < 100.00, Methadone Screen 46, Barbiturate Screen < 60, Ur Phencyclidine Scrn < 6.00, Amphetamines Screen < 100, U Benzodiazepines Scrn < 85, Urine Cocaine Screen < 50, Urine Cannabis Screen < 5.00 05/20/16 0130: Lactic Acid 3.4 H, Total Bilirubin 1.4 H, Direct Bilirubin 1.0 H, AST 54 H, ALT 42, Alkaline Phosphatase 93, Troponin I 0.02, Total Protein 6.7, Albumin 3.6 05/19/16 2252: Lactic Acid 3.0 H 05/19/16 1901: Lactic Acid Cancelled 05/19/16 1858: Anion Gap 20 H, Estimated GFR > 60, BUN/Creatinine Ratio 8.8, Glucose 168 H, Lactic Acid 6.5 H, Calcium 9.5, Magnesium 1.3 L, Troponin I 0.02, Pro-B- Natriuretic Pept 113, Vitamin B12 291, Folate 2.3 L, TSH 24.200 H, Free T4 1.06, CBC w Diff NO MAN DIFF REQ, RBC 4.50, MCV 114.8 H, MCH 38.5 H, RDW 18.1 H, MPV 7.6, Gran % 76.9 H, Lymphocytes % 19.9 L, Monocytes % 2.2, Eosinophils % 0.6, Basophils % 0.4, Absolute Granulocytes 9.5 H, Absolute Lymphocytes 2.5, Absolute Monocytes 0.3, Absolute Eosinophils 0.1, Absolute Basophils 0, PUBS MCHC 33.6 05/19/16 1820: pH 7.28 *L, pCO2 40, pO2 80, HCO3 18 L, ABG O2 Sat (Measured) 92.0 L, Carboxyhemoglobin 0.4 L, O2 Concentration % 6L, O2 Delivery Method NEB RX, Phlebotomy Draw Site LEFT RADIAL Assessment/Plan Impression/Plan: 70-year-old woman presented with loss of consciousness and hypoxia associated with lactic acidosis of uncertain etiology. Note that she is been polycythemic over the past several months. This was initially thought to be related to drug ingestion. Patient's lactic acidosis is improving she is awake alert denies shortness of breath chest pain pleuritic or otherwise hemoptysis. She was recently diagnosed with sleep apnea but has not been using CPAP. The exhalation for her shortness of breath and hypoxia is unclear with evidence of loss of consciousness and hypoxia for concern is raised over possible thromboembolic events as her x-ray is clear and her exam is without bronchospasm. Polycythemia raises the spectrum of chronic hypoxia Recommendations: Taper FiO2 his saturations allow. Obtain old records pulmonary function tests from her silo erector. Obtain the results of her sleep study. Obtain CTA to exclude pulmonary embolism as cause of hypoxia and syncopal episode. At this point we will hold steroids Consult Acknowledgment - Thank you for your consult request.
--- NOTE | 2016-05-20 14:09 | NUR ---
0830: PATIENT TAKEN OFF 02 SAT WENT DOWN TO 88% ON RA; PATIENT PUT BUT ON 4L NC PER DR. BETANCUR; WILL CONTINUE TO MONITOR.
--- NOTE | 2016-05-20 14:11 | NUR ---
PED MD COURTNEY BATES, TAKE PT OFF CONTINUOUS O2 MONITORING.
--- NOTE | 2016-05-20 14:55 | NUR ---
PER DR. POOL TITRATE 02 FROM 4LNC DOWN TO ROOM AIR SLOWLY. 4L NC TO 3LNC 02 SAT IS 94% AFTER 1 HOUR ON 3L NC; WILL CONTINUE TO TITRATE 02 TOLERATED.
--- NOTE | 2016-05-20 15:11 | Patient Discharge Instructions ---
Discharge Instructions General Discharge Information You were seen/treated for: Syncope Low oxygen saturation Lethargy Special Instructions: Please follow up with your PCP within 7 days of discharge. Please follow up with your brick chimney supervisor within 7 days of discharge. Please take all medications as directed. Please do not take more gabapentin than prescribed. PLease return if you notice similar symptoms or have any concerns after discharge. Do not take benadryl more than recommended. Avoid alcohol with benadryl/gabapentin. Diet Recommended Diet: Heart Healthy Activity Activity Self Limited: Yes Acute Coronary Syndrome Inclusion Criteria At DC or during hospital stay patient has or had the following: ACS DIAGNOSIS No Discharge Core Measures Meds if any: Prescribed or Continued at Discharge Meds if any: NOT Prescribed or Continued at Discharge Congestive Heart Failure Inclusion Criteria At DC or during hospital stay patient has or had the following: CHF DIAGNOSIS No Discharge Core Measures Meds if any: Prescribed or Continued at Discharge Meds if any: NOT Prescribed or Continued at Discharge Cerebrovascular accident Inclusion Criteria At DC or during hospital stay patient has or had the following: CVA/TIA Diagnosis No Discharge Core Measures Meds if any: Prescribed or Continued at Discharge Meds if any: NOT Prescribed or Continued at Discharge Venous thromboembolism Inclusion Criteria VTE Diagnosis No VTE Type NONE VTE Confirmed by (Test) NONE Discharge Core Measures - Per Current guidelines, there needs to be overlap - treatment for the first 5 days of Warfarin therapy. - If discharged on Warfarin prior to 5 days of - overlap therapy, the patient will need to be - assessed for post discharge needs including - *Post discharge parental anticoagulation - *Warfarin and/or parental anticoagulation education - *Follow up date to check INR post discharge At least 5 days overlap therapy as Inpatient No Meds if any: Prescribed or Continued at Discharge Note: Overlap Therapy is Warfarin and Anticoagulant Meds if any: NOT Prescribed or Continued at Discharge
[2016-05-20 16:10] VITALS: BP 162/94
--- NOTE | 2016-05-20 16:25 | Discharge Summary ---
Visit Information Visit Dates Admission Date: 05/19/16 Discharge Date: 05/21/16 Hospital Course Course Attending Physician: Dr. Matt Biggs Primary Care Physician: JASON MANCERA MD Consulting Request: Consulting Specialty: Pulmonary Disease Consulting Physician: Dr. Jesu Meyers MD Reason for Consult: Acute hypoxic respiratory failure Hospital Course: Ms. Ayala is a pleasant 70 year old female with PMH eczema on cyclosporine therapy, asthma with no recent history of hospitalization or intubation, MAXIME not on CPAP secondary to patient refusal, HTN, HLD, GERD and hypothyroidism who presented to the ED with chief complaint of syncope, shortness of breath and lethargy. Patient was transported to the hospital via EMS who noted to be hypoxic to 83% on room air. In the ED: Vital signs showed T 97.0, HR 91, RR 22, BP 108/60 and O2 saturation of 96% on 5L venti mask. Pertinent labs showed leukocytosis 12.3, no anemia, elevated anion gap to 20, elevated lactic acid level to 6.5 and hypomagnesemia 1.3. CXR showed no acute findings. ABG showed pH of 7.28, bicarbonate 18, PCO2 40, PO2 20. Patient was admitted to the telemetry floor and below was the management: 1. Syncope: Patient was admitted to the telemetry floor for continuous telemetry monitoring (no arrhythmias seen during stay). Differential included orthostasis vs unintentional overdose/drug toxicity with gabapentin vs pulmonary embolism. Orthostatics were performed and negative. Urinary toxicology was negative. Gabapentin was held and neuro checks were performed to monitor for improvement in mentation. D-Dimer was checked, noted to be high, so chest CTA was performed which ruled out PE. No preceding symptoms likely ruled out vasovagal. Etiology most likely drug overdose resulting in syncope. Patient was discharged with instructions to take gabapentin only as directed and without alcohol/sedatives. She should follow up with her PCP within 7 days for continued care. 2. Acute respiratory failure with hypoxia in the setting of chronic asthma: Patient had increased O2 requirements on admission and she was provided with [facility] nebs. Differential included asthma exacerbation vs drug overdose/intoxication with gabapentin vs PE. Pulmonary consult with Dr. Meyers was paced. As noted above, chest CTA was negative for PE. No wheeing appreciated on examination and asthma thus unlikely. Patient was slowly titrated off of oxygen via nasal cannula and stable for discharge home. She should follow up with Dr. Meyers in his office within 7 days for continued care and for consideration of a sleep study and PFTs. Patient should be sure to take her gabapentin appropriately and not combine it with alcohol/sedatives to keep her respiratory status optimized. 3. Metabolic and lactic acidosis: ABG on admission as noted above was suggestie of metabolic acidosis likely due to elevated lactic acidosis. Lactic acidosis likely secondary to hypotension during syncopal episode. Patient was started on IVF and lactic acid improved. Patient did not require any inotropic support and was not discharged with any new blood pressure medications. 4. Polycythemia: Laboratory analysis showed patient has been polycythemic over the last several months. Consideration is for MAXIME not compliant with CPAP resulting in nocturnal hypoxia. Patient should follow up with Dr. Meyers who may perform a sleep study and PFTs. Patient was again told about the need for CPAP but refused. PCP should monitor polycythemia and continue to suggest patient medical compliance with CPAP. 5. Medical noncompliance: Seen in many aspects of patient's medical history. As noted above, she is non-compliant with CPAP. She also is noted to use gabapentin not as directed and should start following prescription guidelines. Lastly, patient is noted not to use her hydrocrotisone cream for topical relief of itching. 6. Code status: FULL CODE 7. DVT Prophylaxis: SC Lovenox Complications: None. Allergies: Coded Allergies: Penicillins (Severe, ANAPHALACTIC 02/07/16) latex (Severe, "I BLEED ALL OVER" "PUS SPOTS" 02/07/16) Significant Procedures: EXAM TYPE: RAD - XRY-PORTABLE CHEST XRAY EXAMINATION: XR PORTABLE CHEST CLINICAL INFORMATION: Dyspnea. COMPARISON: 02/29/2016 TECHNIQUE: Portable AP view of the chest was obtained. FINDINGS: Cardiac leads overlie the chest. The lungs are well expanded. No consolidation, edema, or effusion. No pneumothorax. The cardiomediastinal silhouette is within normal limits. No acute osseous abnormality. IMPRESSION: No acute pulmonary findings. EXAMINATION: CT ANGIOGRAM OF THE CHEST WITH CONTRAST (CT PULMONARY ANGIOGRAM FOR PE) CLINICAL INFORMATION: Hypoxia and syncope. Evaluate for pulmonary embolism. COMPARISON: CXR from 05/19/2016. TECHNIQUE: Prior to contrast administration, noncontrast localization images were obtained. Subsequently, multidetector volumetric imaging was performed from the thoracic inlet to below the diaphragms following the administration of 90 mL of Optiray 320 intravenous contrast. No contrast reaction reported. Sagittal, coronal, and MIP oblique sagittal reformatted images were obtained on the CT workstation, uploaded to PACS, and reviewed. Total exam dose-length product 574 mGy-cm FINDINGS: QUALITY OF STUDY/CONTRAST BOLUS: Satisfactory. PULMONARY ARTERIES: Pulmonary arteries are normal in caliber and there are no embolic filling defects within the main, lobar or segmental vessels. THORACIC AORTA: There is atherosclerotic calcification of the thoracic aorta without aneurysm or dissection. LUNGS AND PLEURA: Linear opacity of scarring or atelectasis in the anterior segment of the right upper lobe. Also, there are scattered opacities of subsegmental atelectasis involving the lower lobes, medial segment of the middle lobe and inferior lingula. No pulmonary consolidation, edema, pleural effusion or pneumothorax. MEDIASTINUM: Mild cardiomegaly. There is extensive three-vessel coronary artery atherosclerotic calcification. No pericardial effusion. No evidence of septal bowing or right heart strain. The esophagus is unremarkable. The thyroid gland is atrophied. LYMPHATICS: No axillary, hilar, mediastinal or internal mammary lymphadenopathy. UPPER ABDOMEN: Hepatomegaly and diffuse hepatic steatosis. Adrenal glands are unremarkable. Gallbladder has a 1.4 cm calculus. No gallbladder wall edema or pericholecystic inflammatory change. Atherosclerotic calcification of the abdominal aorta. There are aneurysms of the splenic artery that measure 0.7 cm and 0.8 cm transverse diameter (images 417 and 425, series 2). No reflux of contrast into the hepatic veins to suggest elevated right heart pressures. OSSEOUS STRUCTURES: No acute or suspicious osseous abnormality. IMPRESSION: 1. No evidence of pulmonary embolism. 2. Coronary artery atherosclerotic disease and cardiomegaly without pulmonary edema or pleural effusion. 3. Scattered areas of atelectasis within both lungs. 4. Findings in the visualized upper abdomen include hepatomegaly, diffuse hepatic steatosis, cholelithiasis and splenic artery aneurysms. Disposition Summary Disposition Principal Diagnosis: Acute hypoxic respiratory failure Altered mental status Metabolic and lactic acidosis Additional Diagnosis: Chronic asthma MAXIME not compliant with CPAP Polycythemic Medical non-compliance Eczema Discharge Disposition: home or self care Discharge Instructions General Discharge Information Code Status: Full Code Patient's Diet: Regular diet. Patient's Activity: Self-limited, as tolerated. Follow-Up Instructions/Appts: Please follow up with your PCP within 7 days of discharge. 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 Please take all medications as directed. Please do not take more gabapentin than prescribed. Please return if you notice similar symptoms or have any concerns after discharge. Do not take benadryl more than recommended. Avoid alcohol with benadryl/gabapentin. Medications at Discharge Discharge Medications: Continue taking these medications: Gabapentin (Gabapentin) 300 MG CAPSULE 1 Capsule ORAL 4XDAILY Qty = 120 Comments: NOT TAKEN IN HOSPITAL Cyclosporine (Cyclosporine) 100 MG CAPSULE 1 Capsule ORAL Every 3 days Qty = 14 Comments: NOT TAKEN IN HOSPITAL Budesonide/Formoterol Fumarate (Symbicort 160-4.5 Mcg Inhaler) 160 MCG-4.5 MCG/ ACTUATION HFA.AER.AD 2 Puff Inhale through mouth TWICE DAILY Qty = 10 Comments: Last Taken: 05/21/16 Time: 7:00 AM Albuterol Sulfate (Proair Hfa) 90 MCG HFA.AER.AD 2 Puff Inhale through mouth as needed for ASTHMA Qty = 9 Comments: Last Taken: 05/21/16 Time: 7:00 AM Furosemide (Furosemide) 20 MG TABLET 1 Tablet ORAL as needed for EDEMA Qty = 90 Comments: NOT TAKEN IN HOSPITAL Hydrochlorothiazide (Hydrochlorothiazide) 12.5 MG CAPSULE 1 Capsule ORAL DAILY Qty = 30 Comments: NOT TAKEN IN HOSPITAL Ascorbic Acid (Ascorbic Acid) (Unknown Strength) TABLET Unknown Dose ORAL DAILY Comments: NOT TAKEN IN HOSPITAL Acetaminophen (Tylenol Extra Strength) 500 MG TABLET 2 Tablet ORAL as needed for PAIN Comments: 650 MG DOSE OF TYLENOL Last Taken: 05/20/16 Time: 8:30 PM Copies To: CALDERON NEFF,JASON Hartmann; MONA NEFF,JESU Waggoner MD Review Statement Documenting Attending: LAUREN BETANCUR M.D Other Findings: I reviewed the discharge summary.
--- NOTE | 2016-05-20 16:56 | CT SCAN REPORT ---
EXAMINATION: CT ANGIOGRAM OF THE CHEST WITH CONTRAST (CT PULMONARY ANGIOGRAM FOR PE) CLINICAL INFORMATION: Hypoxia and syncope. Evaluate for pulmonary embolism. COMPARISON: CXR from 05/19/2016. TECHNIQUE: Prior to contrast administration, noncontrast localization images were obtained. Subsequently, multidetector volumetric imaging was performed from the thoracic inlet to below the diaphragms following the administration of 90 mL of Optiray 320 intravenous contrast. No contrast reaction reported. Sagittal, coronal, and MIP oblique sagittal reformatted images were obtained on the CT workstation, uploaded to PACS, and reviewed. Total exam dose-length product 574 mGy-cm FINDINGS: QUALITY OF STUDY/CONTRAST BOLUS: Satisfactory. PULMONARY ARTERIES: Pulmonary arteries are normal in caliber and there are no embolic filling defects within the main, lobar or segmental vessels. THORACIC AORTA: There is atherosclerotic calcification of the thoracic aorta without aneurysm or dissection. LUNGS AND PLEURA: Linear opacity of scarring or atelectasis in the anterior segment of the right upper lobe. Also, there are scattered opacities of subsegmental atelectasis involving the lower lobes, medial segment of the middle lobe and inferior lingula. No pulmonary consolidation, edema, pleural effusion or pneumothorax. MEDIASTINUM: Mild cardiomegaly. There is extensive three-vessel coronary artery atherosclerotic calcification. No pericardial effusion. No evidence of septal bowing or right heart strain. The esophagus is unremarkable. The thyroid gland is atrophied. LYMPHATICS: No axillary, hilar, mediastinal or internal mammary lymphadenopathy. UPPER ABDOMEN: Hepatomegaly and diffuse hepatic steatosis. Adrenal glands are unremarkable. Gallbladder has a 1.4 cm calculus. No gallbladder wall edema or pericholecystic inflammatory change. Atherosclerotic calcification of the abdominal aorta. There are aneurysms of the splenic artery that measure 0.7 cm and 0.8 cm transverse diameter (images 417 and 425, series 2). No reflux of contrast into the hepatic veins to suggest elevated right heart pressures. OSSEOUS STRUCTURES: No acute or suspicious osseous abnormality. IMPRESSION: 1. No evidence of pulmonary embolism. 2. Coronary artery atherosclerotic disease and cardiomegaly without pulmonary edema or pleural effusion. 3. Scattered areas of atelectasis within both lungs. 4. Findings in the visualized upper abdomen include hepatomegaly, diffuse hepatic steatosis, cholelithiasis and splenic artery aneurysms.
[2016-05-21] VITALS: BP 138/70
[2016-05-21 07:40] VITALS: BP 160/80
--- NOTE | 2016-05-21 08:13 | PN- Housestaff ---
See Addendum Subjective Follow-up For: syncope hypoxia Tele-Events Since Last Visit: 3 beat run at midnight SR 60-80 Subjective: Pt seen this morning, she was in good spirits, excited to go home. She is off oxygen. She is feeling itchy and was requesting benadryl po, ordered. Told her to only take her home meds as prescribed and avoid alcohol at the green party she is attending today. Pt understands, and wants to leave as soon as possible. Review of Systems Constitutional: Reports: see HPI. Cardiovascular: Denies: chest pain. Respiratory: Denies: cough, short of breath. Gastrointestinal: Denies: abdominal pain. Objective Last 24 Hrs of Vital Signs/I&O Vital Signs Date Time Temp Pulse Resp B/P Pulse O2 O2 Flow FiO2 Ox Delivery Rate 05/21 0740 97.6 72 20 160/80 94 Nasal Cannula 05/21 0000 Nasal 1.0L Cannula 05/21 0000 97.4 98 22 138/70 94 Nasal 1.0L Cannula 05/20 1610 97.7 78 18 162/94 94 Nasal 2.0L Cannula 05/20 1600 Nasal 2.0L Cannula Intake & Output 05/21 1600 05/21 0800 05/21 0000 Intake Total 1250 1200 Output Total 4 Balance 1250 1196 Intake, IV 600 600 Intake, Oral 650 600 Number 0 Bowel Movements Output, Other 4 Physical Exam General Appearance: Alert, Oriented X3, Cooperative, No Acute Distress Skin: skin lesions from scratching HEENT: Atraumatic Neck: Supple Cardiovascular: Regular Rate, Normal S1, Normal S2, No Murmurs, Gallops, Rubs Lungs: Clear to Auscultation, Normal Air Movement Abdomen: Normal Bowel Sounds, Soft, No Tenderness Neurological: Normal Speech Extremities: No Edema Current Medications: Current Medications Sig/Desi Start time Last Medication Dose Route Stop Time Status Admin Acetaminophen 650 MG .STK-MED ONE 05/20 2033 DC PO 05/20 2034 Acetaminophen 650 MG .STK-MED ONE 05/20 1333 DC PO 05/20 133 Acetaminophen 650 MG Q6P PRN 05/19 2144 AC 05/20 PO 203 Acetaminophen 1,000 MG Q8P PRN 05/19 214 AC IV Albuterol Sulfate 2 PUF BID 05/19 2200 AC 05/21 INH 0657 Budesonide/ 2 PUF BID 05/19 2200 AC 05/21 Formoterol Fumarate INH 0657 Diphenhydramine HCl 25 MG ONCE ONE 05/21 0930 DC 05/21 PO 05/21 0931 0933 Diphenhydramine HCl 25 MG Q8P PRN 05/20 0015 AC PO Enoxaparin Sodium 40 MG DAILY 05/20 1000 AC SC Folic Acid 1 MG DAILY 05/20 1137 AC 05/21 PO 0927 Ibuprofen 600 MG .STK-MED ONE 05/20 1705 DC PO 05/20 1706 Ibuprofen 600 MG Q6P PRN 05/19 2145 AC 05/20 PO 1712 Sodium Chloride 1,000 ML Q13H 05/19 220 AC 05/21 IV 0422 Last 24 Hrs of Lab/Carlos Results Last 24 Hrs of Labs/Mics: Laboratory Tests 05/21/16 0645: Anion Gap 9, Estimated GFR > 60, BUN/Creatinine Ratio 25.0, CBC w Diff Pending, WBC Pending, RBC Pending, Hgb Pending, Hct Pending, MCV Pending, MCH Pending, RDW Pending, Plt Count Pending, MPV Pending, PUBS MCHC Pending 05/20/16 1815: D-Dimer 3607 H Assessment/Plan Assessment: Ms. Ayala is a pleasant 70 year old female with PMH eczema on cyclosporine therapy, asthma with no recent history of hospitalization or intubation, MAXIME not on CPAP secondary to patient refusal, HTN, HLD, GERD and hypothyroidism who presented to the ED with chief complaint of syncope, shortness of breath and lethargy. Patient was transported to the hospital via EMS who noted to be hypoxic to 83% on room air. In the ED: Vital signs showed T 97.0, HR 91, RR 22, BP 108/60 and O2 saturation of 96% on 5L venti mask. Pertinent labs showed leukocytosis 12.3, no anemia, elevated anion gap to 20, elevated lactic acid level to 6.5 and hypomagnesemia 1.3. CXR showed no acute findings. ABG showed pH of 7.28, bicarbonate 18, PCO2 40, PO2 20. Patient is currently admitted to the telemetry floor and the following is the management: 1. Possible syncope with altered mental status with lethargy * Likely secondary to unintentional overdose/drug toxicity with gabapentin in the setting of alcohol use * Continous telemetry monitoring to rule out arrhythmia * Hold gabapentin for now, utox negative * Mentation currently returning to baseline 2. Acute respiratory failure with hypoxia in the setting of chronic asthma * Likely 2/2 overdose with gabapentin (1200 mg) resulting in decreased respiratory drive and hypoxia * Instructed pt to only take her meds as directed * DDimer 4600, CTA negative for PE, eliquis not started * Pulm consult with Dr. 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 Metabolic and lactic acidosis * ABG suggestive of metabolic acidosis * Metabolic acidosis likely 2/2 lactic acidosis from hypotension during syncope as EMS noted patient was hypotensive * Maitenance fluids can be stopped 4. Medical noncompliance * Address need for patient to take gabapentin only as directed * Addressed the need for patient to use hydrocortisone cream (topical) for improved relief of itching FULL CODE Regular diet Mild pain pathway DVTP: SC Lovenox Problem List: 1. Acute respiratory failure with hypoxia 2. Syncope Pain Ratin Pain Location: none Pain Goal: Remain pain free Pain Plan: none Tomorrow's Labs & Rationales: none DVT/Prophylaxis: mechanical, pharmacological
[2016-05-21 08:49] LABS: ABSOLUTE BASOPHIL COUNT 0 /CUMM (0.0-0.2); ABSOLUTE EOSINOPHIL COUNT 0 /CUMM (0.0-0.7); ABSOLUTE GRANULOCYTE CT 15.8 /CUMM (1.4-6.5); ABSOLUTE LYMPH COUNT 0.7 /CUMM (1.2-3.4); ABSOLUTE MONOCYTE COUNT 0.7 /CUMM (0.10-0.60); BASOPHIL % 0 % (0.0-2.0); EOSINOPHIL % 0 % (0-5); MEAN CORPUSCULAR HGB 38.7 PG (27.0-31.0); MEAN CORPUSCULAR HGB CONC 33.5 G/DL (33.0-37.0); MEAN CORPUSCULAR VOLUME 115.3 FL (81.0-99.0); MEAN PLATELET VOLUME 8.4 FL (7.4-10.4); PLATELET COUNT 213 /CUMM (130-400); RBC DISTRIBUTION WIDTH 18.4 % (11.5-14.5)
[2016-05-21 09:36] VITALS: BP 148/70
--- NOTE | 2016-05-21 10:07 | PN- Pulmonary ---
Subjective HPI/Critical Care Issues: Patient is awake alert comfortable on room air without respiratory complaints ETA negative for PE Objective Current Medications: Current Medications Sig/Desi Start time Last Medication Dose Route Stop Time Status Admin Acetaminophen 650 MG .STK-MED ONE 05/20 203 DC PO 05/20 203 Acetaminophen 650 MG .STK-MED ONE 05/20 1333 DC PO 05/20 1334 Acetaminophen 650 MG Q6P PRN 05/19 2145 AC 05/20 PO 2037 Acetaminophen 1,000 MG Q8P PRN 05/19 2145 AC IV Albuterol Sulfate 2 PUF BID 05/19 2200 AC 05/21 INH 0657 Budesonide/ 2 PUF BID 05/19 2200 AC 05/21 Formoterol Fumarate INH 0657 Diphenhydramine HCl 25 MG ONCE ONE 05/21 0930 DC 05/21 PO 05/21 0931 0933 Diphenhydramine HCl 25 MG Q8P PRN 05/20 0015 AC PO Enoxaparin Sodium 40 MG DAILY 05/20 1000 AC SC Folic Acid 1 MG DAILY 05/20 1137 AC 05/21 PO 0927 Ibuprofen 600 MG .STK-MED ONE 05/20 1705 DC PO 05/20 1706 Ibuprofen 600 MG Q6P PRN 05/19 2145 AC 05/20 PO 1712 Sodium Chloride 1,000 ML Q13H 05/19 220 AC 05/21 IV 0422 Vital Signs & I&O Last 24 Hrs of Vitals and I&O: Vital Signs Date Time Temp Pulse Resp B/P Pulse O2 O2 Flow FiO2 Ox Delivery Rate 05/21 0936 72 148/70 94 Room Air Room Air 05/21 0740 97.6 72 20 160/80 94 Nasal Cannula 05/21 0000 Nasal 1.0L Cannula 05/21 0000 97.4 98 22 138/70 94 Nasal 1.0L Cannula 05/20 1610 97.7 78 18 162/94 94 Nasal 2.0L Cannula 05/20 1600 Nasal 2.0L Cannula Intake & Output 05/21 1600 05/21 0800 05/21 0000 Intake Total 1250 1200 Output Total 4 Balance 1250 1196 Intake, IV 600 600 Intake, Oral 650 600 Number 0 Bowel Movements Output, Other 4 Room oxygen saturation 94% exam for chest shows good air entry there are no wheezes cardiac exam shows regular S1 and S2 without murmurs Impression/Plan Impression/Plan Impression/Plan: 70-year-old woman presented with loss of consciousness and hypoxia associated with lactic acidosis of uncertain etiology. Note that she is been polycythemic over the past several months. This was initially thought to be related to drug ingestion. Patient's lactic acidosis is improving she is awake alert denies shortness of breath chest pain pleuritic or otherwise hemoptysis. She was recently diagnosed with sleep apnea but has not been using CPAP. The exhalation for her shortness of breath and hypoxia is unclear with evidence of loss of consciousness and hypoxia for concern is raised over possible thromboembolic events as her x-ray is clear and her exam is without bronchospasm. Polycythemia raises the spectrum of chronic hypoxia patient's history failure likely due to drug ingestion polycythemia still raises concerns of nocturnal hypoxia she will follow up with her provider network mgr regarding MAXIME and asthma Recommendations: Taper FiO2 his saturations allow. Obtain old records pulmonary function tests from her provider network mgr. Obtain the results of her sleep study. Obtain CTA to exclude pulmonary embolism as cause of hypoxia and syncopal episode. At this point we will hold steroids
[2016-05-21 12:55] LABS: WHITE BLOOD CELL COUNT 17.1 /CUMM (4.8-10.8)
== END 2016-05-21 12:45 | DRG 917 ==
LOC: ENRESERVTM → ENRESERVDT → ERH 17:55 → ERHI 20:41 → 1NO 20:41
PROVIDERS: Emergency Medicine; Student in an Organized Health Care Education/Training Program; ADMIT Internal Medicine
DX: T42.6X1A Poisoning by other antiepileptic and sedative-hypnotic drugs, accidental (unintentional), initial encounter (principal); J96.01 Acute respiratory failure with hypoxia; E87.2 Acidosis; E66.01 Morbid (severe) obesity due to excess calories; D75.1 Secondary polycythemia; R41.82 Altered mental status, unspecified; Y92.009 Unspecified place in unspecified non-institutional (private) residence as the place of occurrence of the external cause; Z68.38 Body mass index [BMI] 38.0-38.9, adult; G47.33 Obstructive sleep apnea (adult) (pediatric); J45.909 Unspecified asthma, uncomplicated; E03.9 Hypothyroidism, unspecified; L30.9 Dermatitis, unspecified; I10 Essential (primary) hypertension; E78.5 Hyperlipidemia, unspecified; K21.9 Gastro-esophageal reflux disease without esophagitis; Z91.14 Patient's other noncompliance with medication regimen
CPT/HCPCS: 1NSP; 36415; 80307; 82436; 93005; 93010; 94799; 96374; 96375; 99291; J1200; J1650; J2930; J3490

== ENCOUNTER 2016-07-22 22:22 | Inpatient (IN) | payer OTHER ==
[~2016-07-22] VITALS: Ht 160 cm; Wt 99.8 kg
[~2016-07-22 22:22] MED LIST changes: +ASCORBIC ACID250 MG PO; +CYCLOSPORINE100 M2 PO; +FUROSEMIDE20 M1 PO; +GABAPENTIN300 M2 PO; +PROAIR HFA8.5 GM INH; +SYMBICORT 16010.2 GM INH; +TYLENOL EXTRA500 M2 PO
--- NOTE | 2016-07-22 22:30 | ED DYSPNEA/ASTHMA COMPLAINT ---
History of Present Illness General Chief Complaint: Dyspnea (COPD, CHF, Other) Stated Complaint: RESPIRATORY DISTRESS Source: patient, EMS Exam Limitations: no limitations Vital Signs & Intake/Output Vital Signs & Intake/Output Vital Signs Date Time Temp Pulse Resp B/P B/P Pulse O2 O2 Flow FiO2 Mean Ox Delivery Rate 07/23 0129 97.5 101 22 142/67 96 Aerosol Mask 07/22 2258 100 Aerosol 6.0L Mask 07/22 2255 96.9 91 26 131/96 100 Aerosol 6.0L Mask 07/22 2240 96 Non 100% ReBreather ED Intake and Output 07/23 0000 07/22 1200 Intake Total 100 Output Total Balance 100 Intake, IV 100 Patient 206 lb Weight Weight Reported by Patient Measurement Method Allergies Coded Allergies: Penicillins (Severe, ANAPHALACTIC 02/07/16) latex (Severe, "I BLEED ALL OVER" "PUS SPOTS" 02/07/16) Reconcile Medications Acetaminophen (Tylenol Extra Strength) 500 MG TABLET 2 TAB PO PRN PAIN ( Reported) Albuterol Sulfate (Proair Hfa) 90 MCG HFA.AER.AD 2 PUF INH PRN ASTHMA ( Reported) Ascorbic Acid (Unknown Strength) TABLET (Unknown Dose) PO DAILY SUPPLEMENT ( Reported) Budesonide/Formoterol Fumarate (Symbicort 160-4.5 Mcg Inhaler) 160 MCG-4.5 MCG/ ACTUATION HFA.AER.AD 2 PUF INH BID ASTHMA (Reported) Cyclosporine 100 MG CAPSULE 1 CAP PO Q3D ECZEMA (Reported) Furosemide 20 MG TABLET 1 TAB PO PRN EDEMA (Reported) Gabapentin 300 MG CAPSULE 1 CAP PO 4XDAILY ECZEMA (Reported) Hydrochlorothiazide 12.5 MG CAPSULE 1 CAP PO DAILY BP/DIURETIC (Reported) Triage Nurses Notes Reviewed? yes Onset: Gradual Duration: hour(s): Timing: recent history Severity: moderate, severe Activities at Onset: none Modifying Factors: Improves With: rest. Associated Symptoms: cough, wheezing HPI: 70-year-old woman with a history of COPD presents with acute dyspnea for the past 3 hours. The medics noted that they responded to a 911 call and found her agitated breathless with acrocyanosis and perioral cyanosis. They gave her 1 DuoNeb with moderate response. She was breathless at rest, and was unable to complete full sentences. She notes that her body is covered in a red itchy rash. She is uncertain of the etiology. The O2 sat was in the low to mid 80s in the field. They applied CPAP with improvement in her oxygenation to 94-95%. Past History Travel History Traveled to [place] past 21 day No Medical History Any Pertinent Medical History? see below for history Neurological: NONE EENT: NONE Cardiovascular: NONE Respiratory: asthma, COPD Gastrointestinal: GERD, upper GI bleed Hepatic: NONE Renal: NONE Musculoskeletal: ECZEMA Psychiatric: NONE Endocrine: NONE Blood Disorders: NONE Cancer(s): NONE DRILL BIT SHARPENER/Reproductive: NONE Other Medical Hx: ECZEMA History of MRSA: No History of VRE: No History of CDIFF: No Surgical History Surgical History: knee replacement, LASER VEIN SURGERY RIGHT ANKLE FRACTURE Psychosocial History Who do you live with Patient/Self Services at Home None What is your primary language [place] Family History Family History, If Any: MOTHER (Alzheimer's disease). FATHER (hernia). Hx Contributory? No Review of Systems Review of Systems Constitutional: Reports: no symptoms. EENTM: Reports: no symptoms. Respiratory: Reports: no symptoms. Cardiovascular: Reports: no symptoms. GI: Reports: no symptoms. Genitourinary: Reports: no symptoms. Musculoskeletal: Reports: no symptoms. Skin: Reports: no symptoms. Neurological/Psychological: Reports: no symptoms. Hematologic/Endocrine: Reports: no symptoms. Immunologic/Allergic: Reports: no symptoms. All Other Systems: Reviewed and Negative Physical Exam Physical Exam General Appearance: well developed/nourished, moderate distress, severe distress Head: atraumatic, normal appearance Eyes: Bilateral: normal appearance. Ears, Nose, Throat: normal pharynx Neck: normal inspection Respiratory: accessory muscle use, wheezing, respiratory distress Cardiovascular: regular rate/rhythm Gastrointestinal: normal bowel sounds, soft, non-tender Extremities: normal inspection Neurologic/Psych: no motor/sensory deficits, awake, alert, oriented x 3 Skin: intact, normal color Core Measures ACS in differential dx? No Severe Sepsis Present: No Septic Shock Present: No Progress Differential Diagnosis: asthma, AMI, bronchitis, CHF, COPD, pneumonia Plan of Care: Orders Procedure Date/time Status Nothing by Mouth 07/23 B Active Saline Lock 07/23 130 Active Misc Message 07/23 130 Active ED Holding Orders 07/23 130 Active Admit to inpatient 07/23 130 Active Vital Signs 07/23 130 Active Code Status 05/06 0131 Active MIXED VENOUS BLOOD GAS (GEN) 07/22 2229 Active TROPONIN LEVEL 07/22 2229 Complete COMPREHENSIVE METABOLIC PANEL 07/22 2229 Complete CBC WITHOUT DIFFERENTIAL 07/22 2229 Complete B-TYPE NATRIURETIC PEP (BNP) 07/22 2229 Complete EKG 07/22 2222 Active Laboratory Tests 07/22/16 2334: Anion Gap 17 H, Estimated GFR > 60, BUN/Creatinine Ratio 8.6, Glucose 179 H, Calcium 9.1, Total Bilirubin 0.9, AST 43 H, ALT 40, Alkaline Phosphatase 88, Troponin I 0.01, Dae-V-Fipzqwbrdom Pept 53.6, Total Protein 6.7, Albumin 3.8, Globulin 2.9, Albumin/Globulin Ratio 1.3 07/22/162255: CBC w Diff NO MAN DIFF REQ, RBC 4.30, MCV 116.7 H, MCH 39.7 H, RDW 17.3 H, MPV 8.1, Gran % 73.8, Lymphocytes % 22.5, Monocytes % 2.6, Eosinophils % 0.8, Basophils % 0.3, Absolute Granulocytes 7.8 H, Absolute Lymphocytes 2.4, Absolute Monocytes 0.3, Absolute Eosinophils 0.1, Absolute Basophils 0, PUBS MCHC 34.0 Diagnostic Imaging: Viewed by Me: Radiology Read. Discussed w/RAD: Radiology Read. CXR Impression: LOWER LUNG VOLUMES... NO ACUTE FINDINGS. Initial ED EKG: normal axis, normal intervals, normal p-waves, normal QRS complex, normal sinus rhythm Comments: PATIENT: THALIA NARVAEZ PRESENT AGE: 70 PATIENT ACCOUNT NO: [id number] : 46 LOCATION: [facility] ORDERING PHYSICIAN: GLORIA OLSON MD SERVICE DATE: 07/22/16 EXAM TYPE: RAD - XRY-PORTABLE CHEST XRAY EXAMINATION: XR PORTABLE CHEST CLINICAL INFORMATION: Dyspnea COMPARISON: 05/19/2016 TECHNIQUE: Portable frontal view of the chest was obtained. FINDINGS: The lungs are mildly hypoinflated. No definite consolidation is seen, though assessment of the left lung base is somewhat limited due to overlying soft tissue. No appreciable pneumothorax or definite pleural effusion. No overt pulmonary edema. The cardiac silhouette is prominent. No acute osseous findings are seen. IMPRESSION: Low lung volumes without definite acute findings. 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 <Electronically signed in Other Vendor System> SIGNED BY: AZAEL ABREU MD 07/23/16 012 Departure Departure Disposition: STILL A PATIENT Condition: Stable Clinical Impression Primary Impression: COPD exacerbation Secondary Impressions: Allergic reaction Referrals: CALDERON NEFF,JASON Hartmann (PCP/Family) Departure Forms: Customer Survey General Discharge Information Admission Note Spoke With: SELENA XIONG MD Documentation of Exam: Documentation of any treatments & extenuating circumstances including Concerns Regarding Discharge (functional status, medication knowledge or non-compliance, living conditions, etc.) that warrant an admission rather than observation: pt with severe hypoxia, perioral cyanosis, required cpap in the field, required continuous nebs, iv solumedrol/benadryl/pepcid/abx... now requires 02 support, iv steroids, iv abx... stable for gen med. Critical Care Note Critical Care Note Critical Care Time: 30-74 min Comments: pt on continuous nebs, mag sulfate, benadryl, pepcid with good response.
[2016-07-22 23:00] LABS: ABSOLUTE BASOPHIL COUNT 0 /CUMM (0.0-0.2); ABSOLUTE EOSINOPHIL COUNT 0.1 /CUMM (0.0-0.7); ABSOLUTE GRANULOCYTE CT 7.8 /CUMM (1.4-6.5); ABSOLUTE LYMPH COUNT 2.4 /CUMM (1.2-3.4); ABSOLUTE MONOCYTE COUNT 0.3 /CUMM (0.10-0.60); BASOPHIL % 0.3 % (0.0-2.0); EOSINOPHIL % 0.8 % (0-5); GRANULOCYTE % 73.8 % (42.2-75.2); HEMATOCRIT 50.2 % (37-47); MEAN CORPUSCULAR HGB 39.7 PG (27.0-31.0); MEAN CORPUSCULAR VOLUME 116.7 FL (81.0-99.0); MEAN PLATELET VOLUME 8.1 FL (7.4-10.4); PLATELET COUNT 261 /CUMM (130-400); RBC DISTRIBUTION WIDTH 17.3 % (11.5-14.5); WHITE BLOOD CELL COUNT 10.5 /CUMM (4.8-10.8)
--- NOTE | 2016-07-22 23:00 | NUR ---
PT BIBA FOR WORSENING SOB OVER THE PAST SEVERAL HOURS, STATING SHE DID "A FEW TREATMENTS AT HOME BUT I DIDNT GET BETTER AND THEN I GOT REALLY ITCHY" PT ARRIVES TO ED, TACHYAPNEIC, AUDBILY WHEEZING FROM DOORWAY, ON CPAP BY EMS, PT APPEARS EXTREMELY RED WITH CYANOTIC FINGER TIPS AND FEET. TWO IV'S ESTABLISHED, DR OLSON AND RT TO BEDSIDE TO [place], PT PLACED ON CONTINOUS NEB TX.
--- NOTE | 2016-07-23 01:21 | RADIOLOGY REPORT ---
EXAMINATION: XR PORTABLE CHEST CLINICAL INFORMATION: Dyspnea COMPARISON: 05/19/2016 TECHNIQUE: Portable frontal view of the chest was obtained. FINDINGS: The lungs are mildly hypoinflated. No definite consolidation is seen, though assessment of the left lung base is somewhat limited due to overlying soft tissue. No appreciable pneumothorax or definite pleural effusion. No overt pulmonary edema. The cardiac silhouette is prominent. No acute osseous findings are seen. IMPRESSION: Low lung volumes without definite acute findings.
--- NOTE | 2016-07-23 01:31 | NUR ---
PT REPORTS FEELING BETTER. DENIES ANY PAIN AT PRESENT. REMAINS ON CM, HR 100 ST PLAN IS TO ADMIT PATIENT, AWAITING ADMISSION ORDERS AT THIS TIME.
--- NOTE | 2016-07-23 01:56 | NUR ---
CONTINUOUS NEB COMPLETED R/A SATS 88-89%, PLACED ON NASAL O2 @2L WITH SATS IMPROVED TO 94%
[2016-07-23] MEDS ORDERED: LEVOTHYROXINE125 MCG PO (02:35)
--- NOTE | 2016-07-23 02:35 | History & Physical ---
COURTNEY BATES MD 07/23/16 0234: General Information and HPI MD Statement: I have seen and personally examined DEANNA NARVAEZ and documented this H&P. The patient is a 70 year old F who presented with a patient stated chief complaint of dyspnea. Source of Information: patient, old records Exam Limitations: no limitations History of Present Illness: Ms. Narvaez is a 70 year old female with PMH eczema off cyclosporin, asthma (no recent history of intubation), MAXIME not on CPAP, GERD, hypothyroidism non-compliant with her synthroid, HTN and HLD who presents with chief complaint of dyspnea. The patient reports that around 6:15 this evening, she had such intense, generalized itching secondary to her eczema that she took one of her 300 mg gabapentin. She then proceeded to have dinner, including pizza and wine with sprite. Around 8:15 PM, her itching was again so intense that she took another gabapentin 300 mg. Within 20 minutes, she noted the acute onset shortness of breath, wheezing, dizziness, weakness and chest tightness. This was similar in nature to the event she had preceeding her prior admission to [place] on 05/19/16. At that time, she was diagnosed with acute respiratory distress in the setting of gabapentin toxicity and medication non-compliance. Currently, the patient reports her dyspnea is slightly improved, though she remains dizzy and lethargic. Of note, Deanna reports her route service representative Dr. Waqas MD prescribes her gabapentin and directed her she may take it as close at three hours apart. However, both this instance and prior to the last admission, patient is noted to take the medication more frequently/not as directed. Deanna is also non-compliant with her synthroid, as she is instructed to take it daily but only takes it once a week or when "her hair is falling out". Social history is significant for current alcohol use, though patient denies tobacco or illicit drug use. She is very active and completes all of her ADLs/ IADLs indepentantly. Past surgical history is significant for knee replacement, addie vein treatment, and right ankle fracture. Allergies/Medications Allergies: Coded Allergies: Penicillins (Severe, ANAPHALACTIC 02/07/16) latex (Severe, "I BLEED ALL OVER" "PUS SPOTS" 02/07/16) Compliance With Home Meds: POOR Past History Travel History Traveled to [place] past 21 day No Medical History Neurological: NONE EENT: NONE Cardiovascular: NONE Respiratory: asthma, COPD Gastrointestinal: GERD, upper GI bleed Hepatic: NONE Renal: NONE Musculoskeletal: ECZEMA Psychiatric: NONE Endocrine: NONE Blood Disorders: NONE Cancer(s): NONE DEPARTMENT SECRETARY/Reproductive: NONE Other Medical Hx: ECZEMA History of MRSA: No History of VRE: No History of CDIFF: No Surgical History Surgical History: knee replacement, LASER VEIN SURGERY RIGHT ANKLE FRACTURE Past Family/Social History Family History Relations & Conditions if any MOTHER (Alzheimer's disease). FATHER (hernia). Psychosocial History Where do you live? Home Who Do You Live With? self Services at Home: None Primary Language: Nepalese Smoking Status: Never Smoked ETOH Use: occasional use Illicit Drug Use: denies illicit drug use Functional Ability ADLs Independent: dressing, eating, toileting, bathing. 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 Denies: chills, fever. EENTM: Denies: blurred vision, visual changes, hearing changes, nasal congestion. Cardiovascular: Denies: palpitations, syncope. Respiratory: Reports: short of breath, wheezing. Denies: cough. GI: Denies: abdominal pain, bloating, constipation, diarrhea. Genitourinary: Denies: dysuria. Musculoskeletal: Denies: back pain. Skin: Reports: dryness, erythema, lesions. Neurological/Psychological: Reports: see HPI. Denies: confusion, headache. Hematologic/Endocrine: Denies: bleeding. Immunologic/Allergic: Denies: splenectomy. All Other Systems: Reviewed and Negative Exam & Diagnostic Data Last 24 Hrs of Vital Signs/I&O Vital Signs Date Time Temp Pulse Resp B/P B/P Pulse O2 O2 Flow FiO2 Mean Ox Delivery Rate 07/23 0302 97.4 92 20 138/71 95 Nasal Cannula 07/23 0129 97.5 101 22 142/67 96 Aerosol Mask 07/22 2258 100 Aerosol 6.0L Mask 07/22 2254 96.9 91 26 131/96 100 Aerosol 6.0L Mask 07/22 2240 96 Non 100% ReBreather Intake & Output 07/23 0800 07/23 0000 07/22 1600 Intake Total 100 Output Total Balance 100 Intake, IV 100 Patient 206 lb Weight Weight Reported by Patient Measurement Method Physical Exam General Appearance Alert, Oriented X3, Cooperative, No Acute Distress Skin Diffuse excoriations, erythema and dryness 2/2 eczema Skin Temp/Moisture Exam: Warm/Dry HEENT Atraumatic, PERRLA, EOMI, Mucous Membr. moist/pink Neck Supple Lymphatic Cervical nl Cardiovascular Regular Rate, Normal S1, Normal S2 Lungs Mild expiratory wheezing bilaterally Abdomen Normal Bowel Sounds, Soft, No Tenderness, Obese Neurological Normal Speech, Normal Tone Extremities No Clubbing, No Cyanosis, No Edema Vascular Pulses Symmetrical Last 24 Hrs of Labs/Carlos: Laboratory Tests 07/22/16 2334: Anion Gap 17 H, Estimated GFR > 60, BUN/Creatinine Ratio 8.6, Glucose 179 H, Calcium 9.1, Total Bilirubin 0.9, AST 43 H, ALT 40, Alkaline Phosphatase 88, Creatine Kinase Pending, Troponin I 0.01, Osi-V-[id number] Pept 53.6, Total Protein 6.7, Albumin 3.8, Globulin 2.9, Albumin/Globulin Ratio 1.3 07/22/16 2256: CBC w Diff NO MAN DIFF REQ, RBC 4.30, MCV 116.7 H, MCH 39.7 H, RDW 17.3 H, MPV 8.1, Gran % 73.8, Lymphocytes % 22.5, Monocytes % 2.6, Eosinophils % 0.8, Basophils % 0.3, Absolute Granulocytes 7.8 H, Absolute Lymphocytes 2.4, Absolute Monocytes 0.3, Absolute Eosinophils 0.1, Absolute Basophils 0, PUBS MCHC 34.0 Diagnostic Data EKG Results Sinus tachycardia, HR 101 bpm, QTC 446 CXR Results IMPRESSION: Low lung volumes without definite acute findings. Assessment/Plan Assessment: Ms. Narvaez is a 70 [place] with PMH eczema, hypothyroidism, GERD, HTN, HLD, MAXIME not on CPAP, UGIB and asthma who presents with chief complaint of dyspnea. The patient reports after having taking two 300 mg tablets of gabapentin and having one 6-ounce glass of wine, she experienced acute onset shortness of breath, wheezing, dizziness, chest tightness and felt as if she would pass out. She had a friend call EMS, was noted to have an oxygen saturation in the 80's and required DuoNeb on route to the hospital. In the ED: Vital signs showed T 96.9, HR 91-101, RR 26, BP 131/96 and O2 saturation of 100% on 6 L aerosol mask. Labs were significant for WBC 10.5, H&H 17.1/50.2, MCV 116, Plt 261, Na 139, K 3.7, Cl 101, HCo3 20, AG 17, BUN/cre 6/.7 , Glu 179, AST 43, trop 0.01, CK 88 and proBNP 53. CXR showed low lung volumes without acute findings. EKG showed sinus tachycardia HR 101, QTC 446. Patient is admitted to the general medicine floor and the following is the management: 1. Acute hypoxic respiratory failure * Likely due to inappropriate gabapentin use with underlying asthma component (? bronchospasm 2/2 gapabentin) * Continue supplemental O2 via nasal cannula and TRC evaluation/nebs * IV solumedrol 40 mg BID * Hold off antibiotics for now * Continue symbicort BID * Check ABG this AM * Incentive spirometer * Counseled patient on medication compliance, to not use gabapentin in excess and to avoid alcohol while using gabapentin; she acknowledged her understanding * Neurochecks Q8H * Check CPK * PT eval in AM 2. Eczema * Continue gabapentin at a lower frequency than prescribed: 300 mg PO Q8H * Atarax four times a day PRN as we are decreasing dose of gabapentin while patient in house * Moisturize skin with lotion/balm * Close follow up with Dr. Waqas MD as patient should consider different anti- itch regimen in the setting of repeated gabapentin toxicity 3. Hypothyroidism * Again counseled patient on medication compliance and instructed patient to take synthroid DAILY * 0.125 mg PO synthroid daily 4. MAXIME * Patient report she is not on CPAP at night * Patient refuses CPAP while in the hospital FULL CODE DVTP: SC lovenox Heart healthy Diet Mild to severe pain pathway As Ranked By This Provider Problem List: 1. Hypothyroidism 2. Eczema 3. Full code status 4. DVT prophylaxis 5. Allergic reaction 6. Acute respiratory insufficiency Core Measures/Miscellaneous Acute Coronary Syndrome ACS Diagnosis: No Cerebrovascular Accident CVA/TIA Diagnosis: No Congestive Heart Failure CHF Diagnosis: No Venous Thromboembolism VTE Risk Factors: Acute medical illness, Age > 40, Obesity No [facility] VTE prophylaxis d/t: No contraindications No VTE Pharm Prophylaxis d/t: No contraindications VTE Diagnosis: No VTE Type: NONE VTE Confirmed by (Test): NONE Severe Sepsis Severe Sepsis Present: No Septic Shock Septic Shock Present: No Miscellaneous Documentation Attending Case Discussed With: SELENA XIONG MD Primary Care Physician: JASON MANCERA MD Patient sees these Specialists Dr. Waqas MD- Dermatology Level of Patient Care: General Medicine HECTOR LUNA 07/23/16 0236: General Information and HPI Allergies/Medications Home Med list Acetaminophen (Tylenol Extra Strength) 500 MG TABLET 2 TAB PO PRN PAIN ( Reported) Albuterol Sulfate (Proair Hfa) 90 MCG HFA.AER.AD 2 PUF INH PRN ASTHMA ( Reported) Ascorbic Acid (Unknown Strength) TABLET (Unknown Dose) PO DAILY SUPPLEMENT ( Reported) Budesonide/Formoterol Fumarate (Symbicort 160-4.5 Mcg Inhaler) 160 MCG-4.5 MCG/ ACTUATION HFA.AER.AD 2 PUF INH BID ASTHMA (Reported) Furosemide 20 MG TABLET 1 TAB PO PRN EDEMA (Reported) Gabapentin 300 MG CAPSULE 1 CAP PO 4XDAILY ECZEMA (Reported) Levothyroxine Sodium 125 MCG TABLET 1 TAB PO QAM THYROID HEALTH (Reported) Resident Review Statement Resident Statement: examined this patient, discussed with international marketing coordinator, agreed with international marketing coordinator Other Findings: Patient is 70-year-old morbidly obese female with past medical history significant for severe eczema on gabapentin, asthma, obstructive sleep apnea not on CPAP, hypothyroidism, hypertension and hyperlipidemia came with chief complaint of dyspnea and generalized itching since yesterday. Patient admits that she took her 300 mg of gabapentin at 6:00 at evening and then again she treated around 8:00 because of worsening ITCH and after that she felt very short of breath, she felt dizzy, lethargic and weak. She also expresses some chest tightness and pressure but denied any chest pain, headache. She admits that she drinks alcohol almost every day and she had last drink this evening Her vital signs on admission were temperature 96.9, pulse 91, respiratory rate 26, blood pressure 151/96 and she was saturating 96% on 100% nonrebreather Her labs on admission were WBC count 10.5, hemoglobin 17.1, hematocrit 50.2, platelet count 261, sodium 139, potassium 3.7, chloride 101, BUN 6, creatinine 0.7 On examination Alert and oriented 3 Head atraumatic Neck supple Chest mildly reduced air entry Heart S1, S2 normal with no added sound Abdomen protuberant/obese with normal bowel sounds Extremities showed trace edema No neurological deficit noted Assessment and plan 70-year-old morbidly obese female with history of generalized eczema, asthma, hypothyroidism very noncompliant with her medications came with chief complaint of worsening shortness of breath and weakness most likely due to inappropriate medication use. We'll admit patient on general medical floor and will address following problems 1. Worsening shortness of breath/hypoxia most likely due to gabapentin overdose /inappropriate use 2. History of hypothyroidism 3. History of asthma/COPD 4. History of obstructive sleep apnea not on CPAP 5. Morbid obesity Plan * TRC and nebulization * We'll check ABGs * Supplemental oxygen to keep oxygen saturation more than 90% * We will watch patient off antibiotics * 40 mg of Solu-Medrol every 12 hours for bronchospasm * We will continue gabapentin at a day lower dose of 300 mg every 8 hours * We will continue her other home medications Pharmacological DVT prophylaxis Heart healthy diet A shunt is full code SELENA XIONG 07/23/16 0546: Attending MD Review Statement Attending Statement Attending MD Statement: examined this patient, discuss w/resident/PA/MONITOR TECH, agreed w/resident/PA/MONITOR TECH, reviewed EMR data (avail), reviewed images, amended to note Attending Assessment/Plan: CC: Acute shortness of breath PMH: Asthma, MAXIME on and off CPAP, GERD, peptic ulcer, eczema, HTN, HLD, hypothyroidism Patient was in [facility] with similar complaints. Patient came to ER through EMS with acute worsening of shortness of breath, wheezing for several hours. She saw her delivery and installation subcontractor earlier today and everything was all right, then she started to itch a lot secondary to her eczema , She took several pills of gabapentin for it. It precipitated severe shortness of breath and she was feeling dizzy, so she called EMS To come to ER. No fever, chills, Loss of consciousness , Nausea, vomiting, diarrhea. According to ER note patient was agitated secondary to shortness of breath, acrocyanosis improved with nebulization. Vitals: Mild tachycardia, tachypnea, blood pressure stable, afebrile, initially started on 100% nonrebreather, tapered down to 6 L now stable on 2 L nasal cannula. On exam: Mild respiratory distress, obese, a O 3, neck supple, no JVD, pharynx not congested, mucosa dry, no focal neurological deficits. CVS: S1-S2, RRR. RS: Wheezing bilaterally, no crackles. Abdomen: Soft, obese, NT, ND, bowel sounds present., Trace pitting edema bilateral lower extremity. Extensive skin rash eczema, macular. Labs: Hemoglobin 17.1, hematocrit 50.1, MCV 116, bicarbonate 20, anion gap 17, BUN 6, creatinine 0.7, glucose 179, AST 43, creatinine kinase 147, proBNP 53.6, serum alcohol 55 CXR: Low lung volumes without definite acute findings. A and P: Patient comes with acute worsening of shortness of breath after multiple doses of gabapentin and along with alcohol, secondary to severe itching for eczema. She has minimal wheezing on auscultation, received nebulization with albuterol in ER for an hour long, improved remarkably, initially was 100% NRB, oxygen tapered down to 6 L. Saturating well. No evidence of pneumonia on chest x-ray. Probably patient had bronchospasm and asthma exacerbation in setting of overdose , patient is mentating well without any neurological deficits. She Never smoked, According to her and nobody smokes around her. Low index of suspicion for PE. + Acute hypoxic respiratory failure + Asthma exacerbation + Overdosed with gabapentin + History of eczema + MAXIME, HTN, hypothyroidism: Patient is noncompliant with medications - Admit to general med floor - Continue methylprednisolone IV 40 mg twice a day, tapered rapidly - Continue albuterol nebulizations scheduled and when necessary - Continue nighttime CPAP - Continue neuro checks every 8 hours - Check CPK - Check ABG in a.m. - OT PT evaluation - Adequate pain control, but decreased dose of gabapentin - Continue rest of her home medications
--- NOTE | 2016-07-23 03:00 | NUR ---
HOUSE STAFF IN TO EVAL
--- NOTE | 2016-07-23 03:23 | NUR ---
REPORT TO JC BREWER
[2016-07-23 04:01] VITALS: BP 140/66
--- NOTE | 2016-07-23 05:49 | Admission Certification ---
Admission Certification Certification Statement - As attending physician, I certify that at the time of - admission, based on clinical presentation, severity of - symptoms, need for further diagnostic testing and - therapeutic interventions, and risk of adverse outcomes - without in-hospital treatment, in my clinical assessment, - this patient requires an acute hospital stay for a minimum - of two nights or longer. I have also considered psychsocial - factors such as support system, advanced age, financial - issues, cognitive issues, and failed out-patient treatments, - past re-admission history, safety of patient, and lack of - compliance as applicable. Specific rationale supporting this admission is: acute hypoxic respiratory failure, bronchospasm
[2016-07-23 09:14] LABS: ABSOLUTE BASOPHIL COUNT 0 /CUMM (0.0-0.2); ABSOLUTE EOSINOPHIL COUNT 0 /CUMM (0.0-0.7); ABSOLUTE GRANULOCYTE CT 16.7 /CUMM (1.4-6.5); ABSOLUTE LYMPH COUNT 0.5 /CUMM (1.2-3.4); ABSOLUTE MONOCYTE COUNT 0.2 /CUMM (0.10-0.60); BASOPHIL % 0 % (0.0-2.0); EOSINOPHIL % 0 % (0-5); GRANULOCYTE % 95.9 % (42.2-75.2); MEAN CORPUSCULAR HGB 39.1 PG (27.0-31.0); MEAN CORPUSCULAR VOLUME 118.4 FL (81.0-99.0); MEAN PLATELET VOLUME 8.3 FL (7.4-10.4); PLATELET COUNT 204 /CUMM (130-400); RBC DISTRIBUTION WIDTH 16.7 % (11.5-14.5); RED BLOOD CELL CT 3.82 /CUMM (4.20-5.40)
[2016-07-23 12:40] LABS: HEMATOCRIT 45.2 % (37-47); WHITE BLOOD CELL COUNT 17.4 /CUMM (4.8-10.8)
--- NOTE | 2016-07-23 14:23 | PN- Att Addend ---
Attending Addendum Attending Brief Note Patient seen and examined. Resting comfortably and not in any distress. She reports feeling much better compared to presentation. Denies shortness of breath. Denies cough. Denies chest pain. She is not requiring oxygen supplementation. Vital Signs Date Time Temp Pulse Resp B/P B/P Pulse O2 O2 Flow FiO2 Mean Ox Delivery Rate 07/23 0415 94 Nasal 2.0L Cannula 07/23 0404 Nasal 2.0L Cannula 07/23 0401 98.4 107 22 140/66 95 Nasal 2.0L Cannula / 0302 97.4 92 20 138/71 95 Nasal Cannula / 0129 97.5 101 22 142/67 96 Aerosol Mask 07/22 2258 100 Aerosol 6.0L Mask 07/22 2255 96.9 91 26 131/96 100 Aerosol 6.0L Mask / 2240 96 Non 100% ReBreather Gen. appearance: Well-developed, not in acute distress Heart: S1-S2 regular Lungs: Good entry bilaterally, clear to auscultation. Abdomen: Obese, soft, nontender with normal bowel sounds. Extremities: Trace pedal edema. Skin: Intact no significant rashes noted. Problems: 1. Acute COPD exacerbation; now improved. Likely secondary to reactive airway process. 2. Eczema: For which patient reports she takes high doses of gabapentin. 3. Obstructive sleep apnea not on CPAP therapy Plan: -Continue bronchodilator therapy. -In the absence of acute bronchospasm recommend tapering down to prednisone 40 mg daily starting today. -Please consult the pulmonology service. She was seen by Jesu Garcias MD in the past. -Anticipate discharge in 24 hours if she remains stable from a pulmonary standpoint. -This is her second admission related to use of high doses of gabapentin. I have recommended to her to stop using this medication now follow-up with her [employer] sales consultant for another alternative. She has been prescribed Atarax for pruritus.
[2016-07-23 15:48] VITALS: BP 140/70
[2016-07-23 22:48] VITALS: BP 154/80
[2016-07-24 06:49] VITALS: BP 160/90
--- NOTE | 2016-07-24 08:45 | PN- Housestaff ---
Subjective Follow-up For: Anaphylactic reaction, possibly medication induced(gabapentin) Subjective: Ms. Ayala is a 70-year-old woman with long-standing history of asthma, poorly compliant with medications, who was diagnosed with atypical pruritus by her distribution analyst 2 years ago, and henceforth was started on gabapentin for pruritus (off label use). Patient was not prescribed any other medications for pruritus before the use of gabapentin. Patient has been taking gabapentin off-and-on for 2 years. About a month ago, patient experienced intense itching, respiratory compromise that prompted her to come to the ED and resulted in an admission. Similar episode happened morning, wherein she took 2 doses of 300 mg gabapentin along the line, that resulted in exacerbation of itching, flushing, difficulty breathing, "skin turning blue" the patient came to the ED. Patient had no trouble in blood pressure at the time. The patient was thought to have acute respiratory failure and treated with glucocorticoids. That resulted in resolution of her symptoms. Today, patient states that her respiratory symptoms have improved significantly, and her pruritus symptoms are better with the use of Atarax. Review of Systems Constitutional: Reports: no symptoms, see HPI. Objective Last 24 Hrs of Vital Signs/I&O Vital Signs Date Time Temp Pulse Resp B/P B/P Pulse O2 O2 Flow FiO2 Mean Ox Delivery Rate 07/24 1026 92 Room Air Room Air 07/24 0649 97.8 92 20 160/90 92 Room Air / 2248 97.9 83 20 154/80 92 Room Air 05/06 2210 91 Room Air /06 1600 96 Room Air / 1548 98.1 97 22 140/70 91 / 1443 90 Room Air /06 1430 Room Air Intake & Output 07/24 1600 07 0800 05/ 0000 Intake Total 120 120 Output Total Balance 120 120 Intake, IV 20 20 Intake, Oral 100 100 Physical Exam General Appearance: Alert, Oriented X3, Cooperative Skin: rashes, skin breakdowns from itching scratching. HEENT: Atraumatic, PERRLA Cardiovascular: Regular Rate, Normal S1, Normal S2 Lungs: Clear to Auscultation, Normal Air Movement Abdomen: Normal Bowel Sounds, Soft Extremities: No Clubbing, No Cyanosis, No Edema Assessment/Plan Assessment: 70 year old woman with asthma, presents with sudden onset episodes of itching, generalized hives and respiratory compromise in the setting of excessive Gabapentin use. Problem List: 1. COPD (chronic obstructive pulmonary disease) Pain Ratin Pain Location: None Pain Goal: Remain pain free Pain Plan: N/A Tomorrow's Labs & Rationales: Not needed
--- NOTE | 2016-07-24 10:46 | PN- Att Addend ---
Attending Addendum Attending Brief Note Patient seen and examined. Resting comfortably not in any acute distress. No issues overnight. Denies shortness of breath. Denies cough. Denies palpitations. She is maintaining saturation on room air. She is limited freely around the unit. On examination she has good entry bilaterally with no added sounds. She has diffuse dry skin or with no open lesions. Problems: 1. Acute asthma exacerbation likely secondary to reactive airway. 2. Eczema 3. Sleep apnea not utilizing her CPAP therapy. Recommendations: -Patient is medically stable to be discharged home today. Her symptoms of been markedly improved since admission. -She reports that the gabapentin helps with pruritus she has from her eczema. She reports taking 1 tablet as frequently as every 3 hours at home. She is insistent on still using this medication. I've advised her to take no more than 1 tablet every 8 hours for a maximum of 3 tablets (900 mg) a day. -We'll prescribe Atarax 25 mg orally twice daily as needed for persistent pruritus. -We'll provide her with a rapid prednisone taper 40 mg daily for 2 days then 20 mg daily for 2 days and 10 mg daily for 2 days and stop. -She has been advised to follow-up with her supervisor webbing for further recommendation regarding managing her eczema. I have advised her to apply liberal amount of bloody moisturizer twice daily
[2016-07-24] MEDS ORDERED: PREDNISONE10 M2 PO (11:01)
[2016-07-24] MEDS ORDERED: HYDROXYZINE HCL25 M2 PO (11:01)
[2016-07-24] MEDS ORDERED: GABAPENTIN300 M2 PO (11:01)
--- NOTE | 2016-07-24 11:04 | Patient Discharge Instructions ---
Discharge Instructions General Discharge Information You were seen/treated for: Breathing problems Special Instructions: take no more than 1 tablet of Gabapentin every 8 hours for a maximum of 3 tablets (900 mg) a day. Apply body moisturizer twice daily. Follow up with skin doctor and lung doctor. Diet Continue normal diet: Yes Acute Coronary Syndrome Inclusion Criteria At DC or during hospital stay patient has or had the following: ACS DIAGNOSIS No Discharge Core Measures Meds if any: Prescribed or Continued at Discharge Meds if any: NOT Prescribed or Continued at Discharge Congestive Heart Failure Inclusion Criteria At DC or during hospital stay patient has or had the following: CHF DIAGNOSIS No Discharge Core Measures Meds if any: Prescribed or Continued at Discharge Meds if any: NOT Prescribed or Continued at Discharge Cerebrovascular accident Inclusion Criteria At DC or during hospital stay patient has or had the following: CVA/TIA Diagnosis No Discharge Core Measures Meds if any: Prescribed or Continued at Discharge Meds if any: NOT Prescribed or Continued at Discharge Venous thromboembolism Inclusion Criteria VTE Diagnosis No VTE Type NONE VTE Confirmed by (Test) NONE Discharge Core Measures - Per Current guidelines, there needs to be overlap - treatment for the first 5 days of Warfarin therapy. - If discharged on Warfarin prior to 5 days of - overlap therapy, the patient will need to be - assessed for post discharge needs including - *Post discharge parental anticoagulation - *Warfarin and/or parental anticoagulation education - *Follow up date to check INR post discharge At least 5 days overlap therapy as Inpatient No Meds if any: Prescribed or Continued at Discharge Note: Overlap Therapy is Warfarin and Anticoagulant Meds if any: NOT Prescribed or Continued at Discharge
--- NOTE | 2016-08-17 14:36 | Discharge Summary ---
Visit Information Visit Dates Admission Date: 07/24/16 Discharge Date: 07/24/16 Hospital Course Course Attending Physician: LAUREN BETANCUR M.D Primary Care Physician: JASON MANCERA MD Hospital Course: Ms. Ayala was brought into [facility] ED on 07/23/2016 with acute worsening shortness of breath, wheezing for several hours. The patient initially came in with severe itching secondary to her eczema, thought to be exacerbated as a result of gabapentin., And it also seemed to precipitate severe shortness of breath and the patient was brought into the ED. In the ED patient denied any fevers chills, loss of consciousness, nausea vomiting or diarrhea. In the ED, the patient was mildly tachycardic and tachypneic with stable blood pressure and was afebrile. On exam patient was found to be in mild respiratory distress and extensive skin rash eczema was noted. Patient was admitted to general medicine floors for acute worsening of shortness of breath after gabapentin ingestion, along with alcohol. The patient was started on bronchodilator therapy and a rapid prednisone taper was prescribed. The patient was admitted previously as well following use of high doses of gabapentin. The patient was advised during her visit to stop using the medication and follow-up with the field identification specialist for another alternative. Additionally for her pruritus, patient was prescribed Atarax. During the course of her stay, patient's breathing symptoms improved significantly. She was advised to take use of gabapentin but more than 3 times a day and return to the ED if there is any worsening of symptoms. Additionally hydroxyzine was prescribed and a rapid taper ordered. Patient will follow-up with her primary care physician, field identification specialist and the tractor trailer driver upon discharge. Allergies: Coded Allergies: Penicillins (Severe, ANAPHALACTIC 02/07/16) latex (Severe, "I BLEED ALL OVER" "PUS SPOTS" 02/07/16) Disposition Summary Disposition Principal Diagnosis: Acute asthma exacerbation likely secondary to reactive airway Additional Diagnosis: Eczema Sleep apnea not utilizing CPAP therapy Discharge Disposition: home or self care Discharge Instructions General Discharge Information Code Status: Full Code Patient's Diet: Heart healthy diet Patient's Activity: As tolerated Follow-Up Instructions/Appts: Please follow-up with primary care physician, field identification specialist, and tractor trailer driver upon discharge. Medications at Discharge Discharge Medications: Stop taking the following medications: Gabapentin (Gabapentin) 300 MG CAPSULE ORAL 4XDAILY Qty = 120 Continue taking these medications: Budesonide/Formoterol Fumarate (Symbicort 160-4.5 Mcg Inhaler) 160 MCG-4.5 MCG/ ACTUATION HFA.AER.AD 2 Puff Inhale through mouth TWICE DAILY Qty = 10 Comments: Last Taken: 07/30/16 Time: 10 AM Albuterol Sulfate (Proair Hfa) 90 MCG HFA.AER.AD 2 Puff Inhale through mouth as needed for ASTHMA Qty = 9 Comments: Last Taken: NOT GIVEN IN HOSPITAL Time: Furosemide (Furosemide) 20 MG TABLET 1 Tablet ORAL as needed for EDEMA Qty = 90 Comments: NOT TAKEN IN HOSPITAL Ascorbic Acid (Ascorbic Acid) (Unknown Strength) TABLET Unknown Dose ORAL DAILY Comments: NOT TAKEN IN HOSPITAL Acetaminophen (Tylenol Extra Strength) 500 MG TABLET 2 Tablet ORAL as needed for PAIN Comments: Last Taken: 07/29/16 Time: 12 NOON ( IV GIVEN IN HOSPITAL) Levothyroxine Sodium (Levothyroxine Sodium) 125 MCG TABLET 1 Tablet ORAL Every Morning Days = 30 Comments: LAST TAKEN: 07/30/16 06:00 AM Start taking the following new medications: Gabapentin (Gabapentin) 300 MG CAPSULE 300 Milligram ORAL EVERY 8 HOURS as needed for Pruritis Days = 30 No Refills Instructions: Do not take more than 3 times a day. Comments: Last Taken:NOT GIVEN IN HOSPITAL Time: Hydroxyzine HCl (Hydroxyzine HCl) 25 MG TABLET 25 Milligram ORAL 4 TIMES A DAY as needed for ITCHING Days = 30 No Refills Comments: Last Taken:NOT GIVEN IN HOSPITAL Time: Prednisone (Prednisone) 10 MG TABLET 0 ORAL See Instructions Days = 8 No Refills Instructions: Take 4 tablets daily for 2 days, starting 07/25/16. Then 3 tablets daily for 2 days. Then 2 tablets daily for 2 days. Then 1 tablet daily for 2 days. Then stop. Follow up with tractor trailer driver. Comments: Last Taken:07/30/16 Time:1000 Copies To: MONA NEFF,JUANA Waggoner MD Review Statement Documenting Attending: LAUREN BETANCUR M.D
== END 2016-07-24 12:15 | DRG 917 ==
LOC: ERH 22:22 → ERHI 07-23 01:31 → 2NA 07-23 01:31 → ENRESERV 07-23 02:43 → 2NA 07-23 03:58 → ENPENDDIS 07-24 11:08 → 2NA 07-24 12:15
PROVIDERS: Internal Medicine; Pediatrics; ADMIT Internal Medicine
DX: T42.6X1A Poisoning by other antiepileptic and sedative-hypnotic drugs, accidental (unintentional), initial encounter (principal); J96.01 Acute respiratory failure with hypoxia; J44.1 Chronic obstructive pulmonary disease with (acute) exacerbation; J45.901 Unspecified asthma with (acute) exacerbation; E66.01 Morbid (severe) obesity due to excess calories; L30.9 Dermatitis, unspecified; G47.33 Obstructive sleep apnea (adult) (pediatric); K21.9 Gastro-esophageal reflux disease without esophagitis; E03.9 Hypothyroidism, unspecified; I10 Essential (primary) hypertension; Z68.38 Body mass index [BMI] 38.0-38.9, adult; Y92.009 Unspecified place in unspecified non-institutional (private) residence as the place of occurrence of the external cause
CPT/HCPCS: 2NASP; 80307; 82436; 93005; 93010; 94644; 96374; 96375; 97116-GO; 97161-GP; 99291; G0480; J1200; J1650; J2920; J2930; J3490

== ENCOUNTER 2016-07-28 17:36 | Inpatient (IN) | payer OTHER ==
[~2016-07-28] VITALS: Ht 160 cm; Wt 99.8 kg
[~2016-07-28 17:36] MED LIST changes: +HYDROXYZINE HCL25 M2 PO; +PREDNISONE10 M2 PO
--- NOTE | 2016-07-28 17:42 | NUR ---
PT STATES THAT SHE HAD 1 EPISODE OF DARK BLACK STOOLS THIS AM, NO MORE AFTER THAT , COMPLAINS OF ABD CRAMPING , DIFFUSE AND 10/10 FOR A COUPLE OF DAYS.
[2016-07-28 18:22] LABS: ABSOLUTE BASOPHIL COUNT 0 /CUMM (0.0-0.2); ABSOLUTE EOSINOPHIL COUNT 0.3 /CUMM (0.0-0.7); ABSOLUTE GRANULOCYTE CT 9.1 /CUMM (1.4-6.5); ABSOLUTE LYMPH COUNT 2.2 /CUMM (1.2-3.4); ABSOLUTE MONOCYTE COUNT 0.9 /CUMM (0.10-0.60); BASOPHIL % 0.4 % (0.0-2.0); EOSINOPHIL % 2.3 % (0-5); GRANULOCYTE % 72.6 % (42.2-75.2); HEMATOCRIT 48.6 % (37-47); MEAN CORPUSCULAR HGB 39.6 PG (27.0-31.0); MEAN CORPUSCULAR HGB CONC 34.1 G/DL (33.0-37.0); PLATELET COUNT 209 /CUMM (130-400); RBC DISTRIBUTION WIDTH 16.8 % (11.5-14.5); RED BLOOD CELL CT 4.19 /CUMM (4.20-5.40); WHITE BLOOD CELL COUNT 12.6 /CUMM (4.8-10.8)
--- NOTE | 2016-07-28 19:46 | NUR ---
MD AT BEDSIDE FOR EVALUATION
--- NOTE | 2016-07-28 20:07 | NUR ---
PT AMBULATORY TO BEDSIDE COMMODE.
--- NOTE | 2016-07-28 20:11 | NUR ---
PT REFUSING RECTAL EXAM, OFFERING TO PROVIDE STOOL SAMPLE FOR GUIAIC TESTING. INFORMED OF PLAN FOR IV AND FLUIDS/ZOFRAN
--- NOTE | 2016-07-28 20:23 | ED GI/GU/ABDOMINAL COMPLAINT ---
History of Present Illness General Chief Complaint: Abdominal Pain/Flank Pain Stated Complaint: BLOOD IN STOOL Source: patient, family, old records Exam Limitations: no limitations Vital Signs & Intake/Output Vital Signs & Intake/Output Vital Signs Date Time Temp Pulse Resp B/P B/P Pulse O2 O2 Flow FiO2 Mean Ox Delivery Rate 07/28 2311 98.2 79 14 140/82 93 Room Air 07/28 2303 Room Air 07/28 2215 98.6 79 16 165/76 94 Room Air 07/28 2153 96 Room Air 07/28 1740 98.1 88 18 168/94 94 Room Air ED Intake and Output 07/29 0000 07/28 1200 Intake Total Output Total Balance Patient 220 lb Weight Weight Reported by Patient Measurement Method Allergies Coded Allergies: Penicillins (Severe, ANAPHALACTIC 02/07/16) latex (Severe, "I BLEED ALL OVER" "PUS SPOTS" 02/07/16) Reconcile Medications Acetaminophen (Tylenol Extra Strength) 500 MG TABLET 2 TAB PO PRN PAIN ( Reported) Albuterol Sulfate (Proair Hfa) 90 MCG HFA.AER.AD 2 PUF INH PRN ASTHMA ( Reported) Ascorbic Acid (Unknown Strength) TABLET (Unknown Dose) PO DAILY SUPPLEMENT ( Reported) Budesonide/Formoterol Fumarate (Symbicort 160-4.5 Mcg Inhaler) 160 MCG-4.5 MCG/ ACTUATION HFA.AER.AD 2 PUF INH BID ASTHMA (Reported) Furosemide 20 MG TABLET 1 TAB PO PRN EDEMA (Reported) Gabapentin 300 MG CAPSULE 300 MG PO Q8 PRN Pruritis Do not take more than 3 times a day. Hydroxyzine HCl 25 MG TABLET 25 MG PO 4 TIMES/DAY PRN ITCHING Levothyroxine Sodium 125 MCG TABLET 1 TAB PO QAM THYROID HEALTH (Reported) Prednisone 10 MG TABLET 0 PO SI Breathing Take 4 tablets daily for 2 days, starting 07/25/16. Then 3 tablets daily for 2 days. Then 2 tablets daily for 2 days. Then 1 tablet daily for 2 days. Then stop. Follow up with logistics associate. Triage Note: PT STATES THAT SHE HAD 1 EPISODE OF DARK BLACK STOOLS THIS AM, NO MORE AFTER THAT , COMPLAINS OF ABD CRAMPING , DIFFUSE AND 10/10 FOR A COUPLE OF DAYS. Triage Nurses Notes Reviewed? yes ? n Is pt currently ? No HPI: This is a 70-year-old female past medical history significant for eczema on cyclosporine(which was restarted this past Monday), asthma vs COPD??, MAXIME not on CPAP, hypertension, hyperlipidemia, GERD, polycythemia and history of unexplained slight transaminitis, who comes in for chief complaint of dark tarry stool. Patient states that this a.m. she had a bowel movement that looked like "liquid ink." She also endorses abdominal cramping and nausea for the past 2 days. She said she was vomited twice but mostly clear liquid; denies coffee ground emesis. She states she has not been able to eat given the abdominal pain and nausea. She describes abdominal pain as epigastric crampy sensation that waxes and wanes. She rates it an 8 out of 10 currently. She denies any sick contacts, travel, or any exotic ingestions. She states only pain med today was one Tylenol today, denies any other NSAID use. Note that she has had multiple admissions for COPD and been given extensive amounts of steroids. Additionally, she is currently on a pred taper on the outpatient basis. She endorses some dizziness that worsens when she stands. Denies any loss of consciousness or visual changes. Endorses nausea, vomiting, abdominal pain and melena. Denies any hematochezia/bright red blood per rectum. Denies any chest pain and states her shortness of breath is at baseline. Notably, patient states that she had a similar episode about 2 years ago. At that time, in 2014, records indicate that she had evidence of an upper GI bleed and was seen by Dr. Moss. Upper endoscopy showed some healed GI ulcers. Patient was advised to stop taking ibuprofen/Aleve and to continue on Protonix. Notably, patient states she has not had a PPI in over a month and a half. Note that patient Hb 16.6 and hematocrit 48.6. This is around her baseline, she has known polycythemia likely secondary to MAXIME and nocturnal hypoxia. Additionally BUN and creatinine only at 12 and 0.7 She does have some transaminitis which is slightly above her baseline. T bili at 1.8. She was guiac positive, no BRBPR noted on digital rectal exam (SANTIAGO NEFF,BOB) Past History Travel History Traveled to [place] past 21 day No Medical History Any Pertinent Medical History? see below for history Neurological: NONE EENT: NONE Cardiovascular: NONE Respiratory: asthma, COPD, obstructive sleep apnea Gastrointestinal: GERD, upper GI bleed Hepatic: NONE Renal: NONE Musculoskeletal: ECZEMA Psychiatric: NONE Endocrine: NONE Blood Disorders: NONE Cancer(s): NONE AGING BOX HAND/Reproductive: Other Medical Hx: ECZEMA History of MRSA: No History of VRE: No History of CDIFF: No Surgical History Surgical History: L KNEE HALF REPLACEMENT LASER VEIN SURGERY RIGHT ANKLE FRACTURE R KNEE FULL REPLACEMENT Psychosocial History Who do you live with Patient/Self Services at Home None What is your primary language Lithuanian Tobacco Use: Never used ETOH Use: denies use Illicit Drug Use: denies illicit drug use Family History Family History, If Any: MOTHER (Alzheimer's disease). FATHER (hernia). Hx Contributory? No (BOB HENDERSON MD) Review of Systems Review of Systems Constitutional: Reports: malaise. Denies: chills, fever, weakness. EENTM: Denies: blurred vision, visual changes. Respiratory: Reports: short of breath. Denies: wheezing. Cardiovascular: Denies: chest pain, palpitations. GI: Reports: abdominal pain, diarrhea, distention, melena, nausea, changes in stool, vomiting. Denies: bloody stool. Genitourinary: Reports: no symptoms. Musculoskeletal: Reports: no symptoms. Skin: Reports: no symptoms. (BOB HENDERSON MD) Review of Systems Neurological/Psychological: Reports: no symptoms. Hematologic/Endocrine: Reports: no symptoms. Immunologic/Allergic: Reports: no symptoms. All Other Systems: Reviewed and Negative (CLAIRE WEISS MD) Physical Exam Physical Exam General Appearance: well developed/nourished, no apparent distress, alert, awake , comfortable Head: atraumatic, normal appearance Eyes: Bilateral: normal appearance, PERRL, EOMI, normal inspection. Ears, Nose, Throat, Mouth: hearing grossly normal Neck: supple Respiratory: chest non-tender, no respiratory distress, pt has baseline crackles and some mild wheeze. Cardiovascular: regular rate/rhythm Gastrointestinal: soft, non-tender, No guarding or rebound. No abdominal rigidity noted. Negative Lilly's Rectal: heme positive stool Core Measures ACS in differential dx? No Severe Sepsis Present: No Septic Shock Present: No (BOB HENDERSON MD) Physical Exam Peripheral Pulses: 4+ carotid (R), 4+ carotid (L) Back: normal inspection, normal range of motion Extremities: normal range of motion, no ligament instability Neurologic/Psych: no motor/sensory deficits, awake, alert, oriented x 3, wellness program manager II- XII nml as tested Skin: intact, normal color (ISELA NEFF,CLAIRE) Progress Differential Diagnosis: bowel obstruction, cholecystitis, gastritis, hepatitis Plan of Care: Orders Procedure Date/time Status Nothing by Mouth 07/29 B Active HEPATIC FUNCTION PANEL 07/29 599 Active CBC WITHOUT DIFFERENTIAL 07/29 599 Active BASIC ELECTROLYTES PLUS BUN&CR 07/29 599 Active HEPATITIS PANEL 07/28 2340 Active Vital Signs 07/28 2256 Active Teach/Educate 07/28 2256 Active Pain Treatment and Response 07/28 2256 Active Nutritional Intake, Monitor 07/28 2256 Active Isolation 07/28 2256 Active Intake & Output 07/28 2256 Active Patient Care Conference 07/28 2256 Active Activity/Ambulation 07/28 2256 Active Patient Data 07/28 214 Active MISTAKE 07/28 2110 Active OXYGEN SETUP (GEN) 07/28 2105 Active Saline Lock 07/28 2105 Active Admit to inpatient 07/28 2105 Active Vital Signs 07/28 2105 Active Activity/Ambulation 07/28 2105 Active Code Status 07/28 2105 Active TYPE & SCREEN (NOT X-MATCH) 07/28 2102 Complete Add-on Test (ER Only) 07/28 2025 Active Hemoccult 07/29 2003 Active EKG 07/28 2004 Active Intake & Output 07/28 194 Active PARTIAL THROMBOPLASTIN TIME 07/28 1759 Complete PROTHROMBIN TIME 07/28 1759 Complete LIPASE 07/28 1759 Complete AMYLASE 07/28 1759 Complete COMPREHENSIVE METABOLIC PANEL 07/28 1743 Complete CBC WITHOUT DIFFERENTIAL 07/28 1743 Complete US-LIMITED ABDOMEN 07/28 UNK Active Lab Add-on Test 07/28 UNK Active VTE Mechanical Prophylaxis 07/28 UNK Active Nursing Misc 07/28 UNK Active Current Medications Sig/Desi Start time Last Medication Dose Stop Time Status Admin Budesonide/ 2 PUF BID 07/29 1000 AC Formoterol Fumarate (Symbicort) Pantoprazole Sodium 40 MG DAILY 07/29 1000 AC (Protonix) Prednisone 20 MG DAILY 07/29 1000 AC 08/02 0959 Levothyroxine Sodium 0.125 MG DAILY AC 07/29 0700 AC (Synthroid) Diphenhydramine HCl 1 SPENCER BID 07/28 2346 AC (Benadryl) Acetaminophen 1,000 MG Q6PRN PRN 07/28 2344 AC (Tylenol) Albuterol Sulfate 2 PUF Q4 HRS NEEDED PRN 07/28 2344 AC (Ventolin) Dextrose/Sodium 1,000 ML Q10H 07/28 2344 AC 07/29 Chloride 0100 (D5W-1/2 Normal Saline 1000ML) Diphenhydramine HCl 25 MG ONCE PRN 07/28 2344 AC (Benadryl) Laboratory Tests 07/29/16 010: Hepatitis A IgM Ab Pending, Hep Bs Antigen Pending, Hep B Core IgM Ab Conf Pending, Hepatitis C Antibody Pending 07/28/16 1759: Anion Gap 9, Estimated GFR > 60, BUN/Creatinine Ratio 17.1, Glucose 100 H, Calcium 9.5, Total Bilirubin 1.8 H, AST 91 H, ALT 94 H, Alkaline Phosphatase 82, Total Protein 7.0, Albumin 4.0, Globulin 3.0, Albumin/Globulin Ratio 1.3, Amylase 63, Lipase 346 H, PT 11.8, INR 1.13, APTT 30, CBC w Diff NO MAN DIFF REQ, RBC 4.19 L, MCV 116.0 H, MCH 39.6 H, RDW 16.8 H, MPV 7.0 L, Gran % 72.6, Lymphocytes % 17.6 L, Monocytes % 7.1, Eosinophils % 2.3, Basophils % 0.4 , Absolute Granulocytes 9.1 H, Absolute Lymphocytes 2.2, Absolute Monocytes 0.9 H, Absolute Eosinophils 0.3, Absolute Basophils 0, PUBS MCHC 34.1 Initial ED EKG: normal axis Comments: Guiac positive (SANTIAGO NEFF,BOB) Departure Departure Disposition: STILL A PATIENT Condition: Stable Clinical Impression Primary Impression: Upper GI bleed Referrals: CALDERON NEFF,JASON Hartmann (PCP/Family) Departure Forms: Customer Survey General Discharge Information Admission Note Spoke With: NIMO NEFF,MATHEW Documentation of Exam: Documentation of any treatments & extenuating circumstances including Concerns Regarding Discharge (functional status, medication knowledge or non-compliance, living conditions, etc.) that warrant an admission rather than observation: [Pt c/o dizziness and ink like dark stools, concern for GI bleed ] (SANTIAGO NEFF,BOB) PA/BUTADIENE CONVERTER HELPER Co-Sign Statement Statement: ED Attending supervision documentation- x I saw and evaluated the patient. I have also reviewed all the pertinent lab results and diagnostic results. I agree with the findings and the plan of care as documented in the PA's/BUTADIENE CONVERTER HELPER's documentation. [] I have reviewed the ED Record and agree with the PA's/BUTADIENE CONVERTER HELPER's documentation. [] Additions or exceptions (if any) to the PAs/BUTADIENE CONVERTER HELPER's note and plan are summarized below: [] (ISELA NEFF,CLAIRE)
--- NOTE | 2016-07-28 20:42 | NUR ---
MEDICATED PER eMAR AND EKG COMPLETED. MD AT BEDSIDE
--- NOTE | 2016-07-28 21:06 | NUR ---
MALLY POSITIVE. PT INFORMED OF PLAN FOR ADMISSION
[2016-07-28 21:09] LABS: PT 11.8 SEC (9.4-12.5); PTT 30 SEC (25-37)
--- NOTE | 2016-07-28 22:09 | NUR ---
PT TO ROOM 230 BED 1
--- NOTE | 2016-07-28 22:21 | History & Physical ---
[facility] 07/28/16 2221: General Information and HPI MD Statement: I have seen and personally examined THALIA NARVAEZ and documented this H&P. The patient is a 70 year old F who presented with a patient stated chief complaint of blood in stool. Source of Information: patient, old records Exam Limitations: no limitations History of Present Illness: Ms. Narvaez is a 70 y/o F with PMHx of asthma, PUD c/b upper GI bleed and eczema who presents with black tarry stool. Patient states that this morning she had a bowel movement that looks like "black ink" which prompted her come to the ED. For the past two days leading up to current presentation, she has been having spasmodic abdominal pain most pronounced in the epigastrium that is waxing and waning. She also endorses nausea and has had two episodes of nonbloody nonbilious emesis that is mostly clear in color. She took one Tylenol pill for the pain today and denies NSAID use. Of note, patient has received multiple courses of steroids for asthma exacerbations. Most recently she was hospitalized here at [place] (07/23/16-07/24/16) for shortness of breath secondary to asthma exacerbation and discharged on prednisone taper. Patient was initially diagnosed with an esophageal ulcer in 2011 by EGD performed at outside hospital. She was started on proton pump inhibitor but has not been compliant with it as she believes it aggravates her eczema. She was hospitalized here at [place] in June 2014 for upper GI bleed. An EGD was performed which revealed multiple gastric ulcers as well as a large ulcer with a central red spot that was not actively bleeding. She had a repeat EGD in August 2014 which showed healing ulcers. Three days prior to current presentation she started taking cyclosporine for her eczema flare. Allergies/Medications Allergies: Coded Allergies: Penicillins (Severe, ANAPHALACTIC 02/07/16) latex (Severe, "I BLEED ALL OVER" "PUS SPOTS" 02/07/16) Home Med list Acetaminophen (Tylenol Extra Strength) 500 MG TABLET 2 TAB PO PRN PAIN ( Reported) Albuterol Sulfate (Proair Hfa) 90 MCG HFA.AER.AD 2 PUF INH PRN ASTHMA ( Reported) Ascorbic Acid (Unknown Strength) TABLET (Unknown Dose) PO DAILY SUPPLEMENT ( Reported) Budesonide/Formoterol Fumarate (Symbicort 160-4.5 Mcg Inhaler) 160 MCG-4.5 MCG/ ACTUATION HFA.AER.AD 2 PUF INH BID ASTHMA (Reported) Furosemide 20 MG TABLET 1 TAB PO PRN EDEMA (Reported) Gabapentin 300 MG CAPSULE 300 MG PO Q8 PRN Pruritis Do not take more than 3 times a day. Hydroxyzine HCl 25 MG TABLET 25 MG PO 4 TIMES/DAY PRN ITCHING Levothyroxine Sodium 125 MCG TABLET 1 TAB PO QAM THYROID HEALTH (Reported) Pantoprazole Sodium (Protonix) 40 MG TABLET.DR 1 TAB PO BID ULCERS STOMACH Prednisone 10 MG TABLET 0 PO SI Breathing Take 4 tablets daily for 2 days, starting 07/25/16. Then 3 tablets daily for 2 days. Then 2 tablets daily for 2 days. Then 1 tablet daily for 2 days. Then stop. Follow up with corporate quality assurance manager. Past History Travel History Traveled to [place] past 21 day No Medical History Neurological: NONE EENT: NONE Cardiovascular: NONE Respiratory: asthma, obstructive sleep apnea Gastrointestinal: GERD, peptic ulcer disease, upper GI bleed Hepatic: NONE Renal: NONE Musculoskeletal: degen joint disease, fracture (right ankle) Psychiatric: NONE Endocrine: hypothyroidism, obesity Blood Disorders: NONE Cancer(s): NONE Other Medical Hx: eczema History of MRSA: No History of VRE: No History of CDIFF: No Surgical History Surgical History: , knee replacement (bilateral), laser vein ablation, right ankle ORIF Past Family/Social History Family History Relations & Conditions if any MOTHER (Alzheimer's disease). FATHER (hernia). FH: asthma BROTHER FH: asthma Psychosocial History Where do you live? Home Who Do You Live With? self Services at Home: None Primary Language: Guatemalan Smoking Status: Never Smoked ETOH Use: occasional use (1-2 drinks every few weeks) Illicit Drug Use: denies illicit drug use Functional Ability ADLs Independent: dressing, eating, toileting, bathing. Ambulation: independent IADLs Independent: shopping, housework, finances, food prep, telephone, transportation , medication admin. 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 EENTM: Reports: no symptoms. Cardiovascular: Denies: chest pain, palpitations. Respiratory: Reports: no symptoms. GI: Reports: abdominal pain, melena, nausea, changes in stool, vomiting. Denies: constipation, diarrhea, bloody stool. Genitourinary: Reports: no symptoms. Musculoskeletal: Reports: no symptoms. Skin: Reports: rash (eczema). Neurological/Psychological: Reports: no symptoms. Hematologic/Endocrine: Reports: no symptoms. Immunologic/Allergic: Reports: no symptoms. All Other Systems: Reviewed and Negative Exam & Diagnostic Data Last 24 Hrs of Vital Signs/I&O Vital Signs Date Time Temp Pulse Resp B/P B/P Pulse O2 O2 Flow FiO2 Mean Ox Delivery Rate 07/28 2311 98.2 79 14 140/82 93 Room Air 07/28 2303 Room Air 07/28 2215 98.6 79 16 165/76 94 Room Air 07/28 2153 96 Room Air 07/28 1740 98.1 88 18 168/94 94 Room Air Intake & Output 07/29 0800 07/29 0000 07/28 1600 Intake Total Output Total Balance Patient 99.79 kg Weight Weight Reported by Patient Measurement Method Physical Exam General Appearance Alert, Oriented X3, No Acute Distress HEENT Atraumatic, Mucous Membr. moist/pink Neck Supple Cardiovascular Regular Rate, Normal S1, Normal S2, No Murmurs, Gallops, Rubs Lungs Diminished Breath Sounds Abdomen Soft, No Tenderness, Positive Bowel Sounds Extremities No Clubbing, No Cyanosis, No Edema Last 24 Hrs of Labs/Carlos: Laboratory Tests 07/29/16 0100: Hepatitis A IgM Ab Pending, Hep Bs Antigen Pending, Hep B Core IgM Ab Conf Pending, Hepatitis C Antibody Pending 07/28/16 1759: Anion Gap 9, Estimated GFR > 60, BUN/Creatinine Ratio 17.1, Glucose 100 H, Calcium 9.5, Total Bilirubin 1.8 H, AST 91 H, ALT 94 H, Alkaline Phosphatase 82, Total Protein 7.0, Albumin 4.0, Globulin 3.0, Albumin/Globulin Ratio 1.3, Amylase 63, Lipase 346 H, PT 11.8, INR 1.13, APTT 30, CBC w Diff NO MAN DIFF REQ, RBC 4.19 L, MCV 116.0 H, MCH 39.6 H, RDW 16.8 H, MPV 7.0 L, Gran % 72.6, Lymphocytes % 17.6 L, Monocytes % 7.1, Eosinophils % 2.3, Basophils % 0.4 , Absolute Granulocytes 9.1 H, Absolute Lymphocytes 2.2, Absolute Monocytes 0.9 H, Absolute Eosinophils 0.3, Absolute Basophils 0, PUBS MCHC 34.1 Assessment/Plan Assessment: 70 y/o F with PMHx of asthma, PUD c/b upper GI bleed and eczema who presents with black tarry stool. #Melena: Likely secondary to upper GI bleed given history of PUD. H/H 16.6/48.6, polycythemia likely secondary to MAXIME. Hemodynamically stable. Episode of GI bleed in June 2014 where EGD showed multiple gastric ulcers with a large ulcer with central red spot. Most recent EGD in August 2014 with healed gastric ulcers. * Admit to General Medicine. * GI consulted. Appreciate their recs. * Possible EGD as inpatient vs. outpatient. * Establish peripheral IV access in bilateral arms. * Keep patient NPO. * Check CBC Q6-8H. * Protonix 40 mg IV BID. * Monitor H/H and transfuse as needed to keep Hgb >7. * Avoid NSAIDs. * Type and cross. #Transaminitis: AST/ALT elevated to 91/94 on admission. Patient has had mild elevation in LFTs to 90s/50s in the past. Of unclear etiology with differential including drug-induced, hepatitis, gall bladder pathology. Lipase with mild elevation to 346, amylase 63. * Check RUQ US. * Check hepatitis panel. #Asthma: Recent admission for asthma exacerbation when she was discharged on prednisone taper: 40 mg x2 days (07/25-07/26), 30 mg x2 days (07/27-07/28), 20 mg x2 days (07/29-07/30) and 10 mg x2 days (07/31-08/01). * Continue [id number] Symbicort 2 puffs BID. * Continue prednisone taper. * TRC and nebs. #Eczema: * Hold cyclosporine for now although there is no reported association for GI bleed. * Apply Benadryl cream BID. * Benadryl 25 mg IV PRN for itching. Diet: NPO Fluids: D5W-1/2NS @ 100 cc/hr Pain: Tylenol 1 g PO Q6H PRN DVT PPx: ALPs CODE: FULL As Ranked By This Provider Problem List: 1. Upper GI bleed 2. Melena 3. Asthma 4. Transaminitis 5. Eczema Core Measures/Miscellaneous Acute Coronary Syndrome ACS Diagnosis: No Cerebrovascular Accident CVA/TIA Diagnosis: No Congestive Heart Failure CHF Diagnosis: No Venous Thromboembolism VTE Risk Factors: Acute medical illness, Age > 40, No Risk Factors, Obesity No [facility] prophylaxis d/t: No contraindications No VTE Pharm Prophylaxis d/t: Active bleeding VTE Diagnosis: No VTE Type: NONE VTE Confirmed by (Test): NONE Severe Sepsis Severe Sepsis Present: No Septic Shock Septic Shock Present: No Miscellaneous Documentation Attending Case Discussed With: NIMO NEFF,MATHEW Primary Care Physician: JASON MANCERA MD Patient sees these Specialists Service Greeter Bandar Alan MD PhD Neurology Epilepsy Physician Arnie Smith MD Level of Patient Care: General Medicine PARISA AVALOS 07/28/16 2314: Resident Review Statement Resident Statement: examined this patient, discussed with chemist intern, agreed with chemist intern, discussed with family, reviewed EMR data (avail), discussed with nursing , discussed with case mgmt, reviewed images, amended to note Other Findings: This is a 70-year-old woman was admitted for lower GI bleeding. She was recently admitted in [facility] May 2016 for acute hypoxic respiratory failure. And visited emergency room on Monday07/24/2016 for COPD exacerbation, she was prescribed prednisone taper and discharged home. On Monday patient was restarted on cyclosporine per her product scientist for her generalized eczema. On Monday patient started feeling midepigastric, spastic abdominal pain with intensity 8-9 out of 10, no correlation with eating or bowel movements. Associated with 2 episodes of vomits mainly food no blood. Patient denied any recent change in appetite recent change in bowel movements, dining outside, GI symptoms in other house members, urinary symptoms, discoloration of skin and sclera. This a.m. patient had one episode of massive tarry bowel movement, w/o blood. Bowel movement was not associated with pain. He shouldn't denied any chest pain, palpitation, lightheadedness and dizziness. Of note , her past medical history significant for past medical history significant for eczema on cyclosporine(which was restarted this past Monday), asthma vs COPD??, MAXIME not on CPAP, hypertension, hyperlipidemia, GERD, polycythemia and history of unexplained slight transaminitis. Patient states that this a.m. she had a bowel movement that looked like "liquid ink." She also endorses abdominal cramping and nausea for the past 2 days. She said she was vomited twice but mostly clear liquid; denies coffee ground emesis. She states she has not been able to eat given the abdominal pain and nausea. She describes abdominal pain as epigastric crampy sensation that waxes and wanes. She rates it an 8 out of 10 currently. She denies any sick contacts, travel, or any exotic ingestions. She states only pain med today was one Tylenol today, denies any other NSAID use. Note that she has had multiple admissions for COPD and been given extensive amounts of steroids. Additionally, she is currently on a pred taper on the outpatient basis. Notably, patient states that she had a similar episode about 2 years ago. At that time, in 2014, records indicate that she had evidence of an upper GI bleed and was seen by Dr. Moss. Upper endoscopy showed some healed GI ulcers. Patient was advised to stop taking ibuprofen/Aleve and to continue on Protonix. Notably, patient states she has not had a PPI in over a month and a half. View of system patient is complaining of midepigastric abdominal pain; physical exam: Head and neck: Non-icterus, mucous membranes are not dry; heart S1-S2 no murmur, lungs diminished air movement and no wheezing no rales, abdomen soft, midepigastric tenderness no guarding no rebound; the remainder of the physical exam was unremarkable except for trace 1+ pitting edema of lower extremity and venous stasis of lower extremities. Note that was not s patient Hb 16.6 and hematocrit 48.6. Additionally BUN and creatinine only at 12 and 0.7 . She does have some transaminitis which is slightly above her baseline. T bili at 1.8. She was guiac positive, no BRBPR noted on digital rectal exam. Assessment 70-year-old woman was admitted for lower GI bleeding. Active problems #1 lower GI bleeding: Was possibly in the setting of history of healing peptic ulcers and noncompliance with proton his treatment and recent administration of IV Solu-Medrol and prednisone taper in combination w/ cyclosporine. Patient's BUN is below 20 which goes against upper GI bleeding. * Admit to general medical floor * Nothing by mouth * Continue IV hydration * Repeat C BC every 6-8 hours maintain hemoglobin above 7 * Type and Crossmatch * Get the second peripheral IV line * Stop cyclosporine, and avoid NSAID and aspirin * IV Protonix 40 mg * G I was informed-they will see the patient tomorrow morning #2 transaminitis: 3 of transaminitis without clear reason current labs showed significant increase in liver enzymes. Possible causes choledocholithiasis without cholecystitis versus hepatitis versus alcoholic liver disease versus drug or toxin side effects. Patient is not a heavy drinker and she denies any illicit drug use. * Obtained limited ultrasound of the gallbladder and liver * Hepatitis panel * Reviewed the question with GI specialist in the a.m. 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 #4 COPD plus MAXIME and OHS * TRC neb [id number] every 4 as needed * Symbicort 1604 0.52 puffs twice a day * Albuterol inhaler every 4 #5 neuropathic pain: Couple preventing 300 mg 3 times a day- hold #6 chronic leg edema: By mouth Lasix 20 mg-hold #7 eczema: Stop cyclosporine due to possible contribution to patient's presentation. * IV Benadryl 25 mg every 4 as needed * Benadryl cream Pain medication Tylenol extra strength, and morphine DVT prophylaxis-alps Full code NIMO NEFF, [facility] 07/29/16 0644: Attending MD Review Statement Attending Statement Attending MD Statement: examined this patient, discuss w/resident/PA/HAIR BOILER, agreed w/resident/PA/HAIR BOILER Attending Assessment/Plan: 70 yo morbidly obese F with h/o asthma, MAXIME (awaiting CPAP), GERD, PUD, HTN, eczema, admitted to [place] (07/23-07/24) for asthma exacerbation discharged on steroid taper, is here with 1-episode of black tarry stool, nausea and vomiting, epigastric cramping. Denies coffee ground emesis, heartburn, BRBPR or hematochezia. Denies aspirin or NSAID use. Last EGD 2014 showed gastric ulcers with repeat showing healing. She stopped PPI 2 months ago as per Pulm reckymberly (Dr. Ford), just because she was on too many meds. Also she resumed cyclosporine for her eczema per product scientist (Dr. Alan). She previously has been on cyclosporine for 1 yr. Patient has never smoked, drinks 1-2 wine spritzers every few weeks. VSS. Exam: epigastric tenderness+, negative Lilly's sign. Labs: WBC 12.6, H/H 16.6/48.6, macrocytosis, bicarb 33, T. Bili 1.8, AST 91, ALT 94, amylase neg, lipase 346. EKG: SR, nonspecific ST-T changes. Troponin pending. Echo (2016): hyperdynamic LV systolic function, EF 75%, mild aortic valvular stenosis. Rectal exam: guaiac positive. 1. Upper GI bleeding 2/2 PUD or gastritis. GM admit, NPO, IV PPI, IV fluids, serial CBCs, keep Hb > 7.0, guaiac all stools, GI consult, inpatient vs. Outpatient EGD. Hold cyclosporine for now. Avoid NSAIDs or aspirin. Lipase is not elevated to 3 times upper limit of normal, not pancreatitis. Serial EKG and troponin to rule out ACS. Patient already feels her epigastric cramping has alleviated due to PPI and fluids. 2. Transaminitis ?drug induced ?GB/liver pathology. Fractionate bilirubin, check hepatitis panel, HIV, RUQ ultrasound. Check urine tox screen. Trend LFTs after hydration. Follow up with GI. 3. Leukocytosis likely steroid induced. 4. Asthma exacerbation in resolution. Complete prednisone taper, continue nebs. DVT ppx Alps. Full code.
--- NOTE | 2016-07-28 22:39 | NUR ---
MEDS REVIEWED AND PAPERWORK PROVIDED TO HOUSE STAFF MD AVALOS WHO WILL UPDATE MED REC. HOUSE STAFF AT BEDSIDE FOR EVAL
[2016-07-28 23:11] VITALS: BP 140/82
--- NOTE | 2016-07-28 23:12 | NUR ---
PT UP TO FLOOR AT 2256. PT A/O X3. RA . DNEIES PAIN. ORIENTED TO ROOM AND CALL [facility]. WILL MONITIOR
--- NOTE | 2016-07-29 02:18 | Admission Certification ---
Admission Certification Certification Statement - As attending physician, I certify that at the time of - admission, based on clinical presentation, severity of - symptoms, need for further diagnostic testing and - therapeutic interventions, and risk of adverse outcomes - without in-hospital treatment, in my clinical assessment, - this patient requires an acute hospital stay for a minimum - of two nights or longer. I have also considered psychsocial - factors such as support system, advanced age, financial - issues, cognitive issues, and failed out-patient treatments, - past re-admission history, safety of patient, and lack of - compliance as applicable. Specific rationale supporting this admission is: Upper GI bleed, transaminitis.
[2016-07-29 06:30] VITALS: BP 142/78
[2016-07-29 08:16] LABS: ABSOLUTE BASOPHIL COUNT 0 /CUMM (0.0-0.2); ABSOLUTE EOSINOPHIL COUNT 0.3 /CUMM (0.0-0.7); ABSOLUTE GRANULOCYTE CT 8.9 /CUMM (1.4-6.5); ABSOLUTE LYMPH COUNT 1.8 /CUMM (1.2-3.4); ABSOLUTE MONOCYTE COUNT 0.8 /CUMM (0.10-0.60); BASOPHIL % 0.2 % (0.0-2.0); EOSINOPHIL % 2.6 % (0-5); GRANULOCYTE % 75.2 % (42.2-75.2); HEMATOCRIT 44.3 % (37-47); MEAN CORPUSCULAR HGB 39.5 PG (27.0-31.0); MEAN CORPUSCULAR HGB CONC 34.2 G/DL (33.0-37.0); MEAN PLATELET VOLUME 7.4 FL (7.4-10.4); PLATELET COUNT 195 /CUMM (130-400); RBC DISTRIBUTION WIDTH 16.5 % (11.5-14.5); RED BLOOD CELL CT 3.84 /CUMM (4.20-5.40); WHITE BLOOD CELL COUNT 11.9 /CUMM (4.8-10.8)
--- NOTE | 2016-07-29 08:17 | PN- Housestaff ---
See Addendum Subjective Follow-up For: Upper GI bleed/melena Transaminitis Asthma versus COPD Eczema Complaints: pain scale (0-10) Subjective: Patient was seen and examined this morning. She is alert, awake and oriented to time place and person. No acute events noticed overnight. She does report some epigastric abdominal discomfort, 3 out of 10, relieved with Tylenol. Nonradiating pain. She denies any episode of hematemesis or melena. She denies black tarry stools, fresh blood in stool. She denies any nausea, vomiting. No change in bladder or bowel habits. She denies any difficulty breathing, cough, chest pain, palpitations. She is nothing by mouth waiting for upper endoscopy this afternoon. She is on IV fluids. Review of Systems Constitutional: Reports: see HPI. Objective Last 24 Hrs of Vital Signs/I&O Vital Signs Date Time Temp Pulse Resp B/P B/P Pulse O2 O2 Flow FiO2 Mean Ox Delivery Rate 07/29 0630 98.9 83 18 142/78 94 Room Air 07/28 2311 98.2 79 14 140/82 93 Room Air 07/28 2303 Room Air 07/28 2215 98.6 79 16 165/76 94 Room Air 07/28 2153 96 Room Air 07/28 1740 98.1 88 18 168/94 94 Room Air Intake & Output 07/29 1600 07/29 0800 07/29 0000 Intake Total 800 Output Total 450 Balance 350 Intake, IV 800 Intake, Oral 0 Output, Urine 450 Patient 99.79 kg Weight Weight Reported by Patient Measurement Method Physical Exam General Appearance: Alert, Oriented X3, Cooperative, No Acute Distress Skin: No Rashes, No Breakdown HEENT: Atraumatic, PERRLA, EOMI, Mucous Membr. moist/pink Neck: Supple, No JVD Lymphatic: Cervical nl Cardiovascular: Normal S1, Normal S2 Lungs: Normal Air Movement Abdomen: Normal Bowel Sounds, Soft, mild epigastric discomfort on palpation Neurological: Strength at 5/5 X4 Ext, Sensation Intact, Cranial Nerves 3-12 NL Extremities: No Clubbing, No Cyanosis, No Edema Vascular: Normal Pulses, Pulses Symmetrical Current Medications: Current Medications Sig/Desi Start time Last Medication Dose Route Stop Time Status Admin Acetaminophen 1,000 MG ONCE ONE 07/29 1145 DC 07/29 N/A 1 UNIT IV 05/12 1159 1200 Acetaminophen 1,000 MG Q6PRN PRN 07/28 2345 AC PO Albuterol Sulfate 2 PUF Q4 HRS NEEDED PRN 07/28 2345 AC INH Budesonide/ 2 PUF BID 07/29 1000 AC 07/29 Formoterol Fumarate INH 0841 Dextrose/Sodium 1,000 ML Q10H 07/28 2345 AC 07/29 Chloride IV 1135 Diphenhydramine HCl 1 SPENCER BID 07/28 2347 AC 07/29 TOP 0842 Diphenhydramine HCl 25 MG ONCE PRN 07/28 2345 AC IV Levothyroxine Sodium 0.125 MG DAILY AC 07/29 0700 AC 07/29 PO 0559 Ondansetron HCl 4 MG ONCE ONE 07/28 2014 DC 07/28 IV 07/28 Ondansetron HCl 0 .STK-MED ONE 07/28 2013 DC .ROUTE Pantoprazole Sodium 40 MG DAILY 07/29 1000 AC 07/29 IV 0840 Pantoprazole Sodium 0 .STK-MED ONE 07/28 2038 DC IV Pantoprazole Sodium 40 MG ONCE ONE 07/28 2014 DC 07/28 IV 07/29 2015 204 Prednisone 20 MG DAILY 07/29 1000 AC PO 08/02 0959 Sodium Chloride 1,000 ML Q10H 07/28 2014 DC 07/28 IV 2030 Last 24 Hrs of Lab/Carlos Results Last 24 Hrs of Labs/Mics: Laboratory Tests 07/29/16 0849: Methadone Screen Cancelled, Barbiturate Screen Cancelled, Ur Phencyclidine Scrn Cancelled, Amphetamines Screen Cancelled, U Benzodiazepines Scrn Cancelled, Urine Cocaine Screen Cancelled, Urine Cannabis Screen Cancelled 07/29/16 0727: Anion Gap 9, Estimated GFR > 60, BUN/Creatinine Ratio 16.7, Total Bilirubin 1.4 H, Direct Bilirubin 0.5 H, AST 68 H, ALT 90 H, Alkaline Phosphatase 70, Total Protein 6.1 L, Albumin 3.4 L, CBC w Diff NO MAN DIFF REQ, RBC 3.84 L, MCV 115.6 H, MCH 39.5 H, RDW 16.5 H, MPV 7.4, Gran % 75.2, Lymphocytes % 15.0 L, Monocytes % 7.0, Eosinophils % 2.6, Basophils % 0.2, Absolute Granulocytes 8.9 H, Absolute Lymphocytes 1.8, Absolute Monocytes 0.8 H, Absolute Eosinophils 0.3 , Absolute Basophils 0, PUBS MCHC 34.2 07/29/16 0100: Hepatitis A IgM Ab Cancelled, Hep Bs Antigen Cancelled, Hep B Core IgM Ab Conf Cancelled, Hepatitis C Antibody Cancelled 07/28/16 1759: Anion Gap 9, Estimated GFR > 60, BUN/Creatinine Ratio 17.1, Glucose 100 H, Calcium 9.5, Total Bilirubin 1.8 H, AST 91 H, ALT 94 H, Alkaline Phosphatase 82, Troponin I 0.02, Total Protein 7.0, Albumin 4.0, Globulin 3.0, Albumin/ Globulin Ratio 1.3, Amylase 63, Lipase 346 H, PT 11.8, INR 1.13, APTT 30, CBC w Diff NO MAN DIFF REQ, RBC 4.19 L, MCV 116.0 H, MCH 39.6 H, RDW 16.8 H, MPV 7.0 L, Gran % 72.6, Lymphocytes % 17.6 L, Monocytes % 7.1, Eosinophils % 2.3, Basophils % 0.4, Absolute Granulocytes 9.1 H, Absolute Lymphocytes 2.2, Absolute Monocytes 0.9 H, Absolute Eosinophils 0.3, Absolute Basophils 0, PUBS MCHC 34.1, Hepatitis A IgM Ab NONREACTIVE, Hep Bs Antigen NONREACTIVE, Hep B Core IgM Ab Conf NONREACTIVE, Hepatitis C Antibody NONREACTIVE Assessment/Plan Assessment: 70 y/o F with PMHx of asthma, PUD c/b upper GI bleed and eczema who presents with black tarry stool. she took one Tylenol pill for the pain and denies NSAID use. Of note, patient has received multiple courses of steroids for asthma exacerbations. Most recently she was seen in the ED four days prior to current presentation for shortness of breath and discharged on prednisone taper. Vitals at the time of admission-afebrile, heart rate 88, respiratory rate 18, blood pressure 160/90, saturating at 94% on room air. Pertinent labs on admission- WBC 12.6, hemoglobin 16, hematocrit 48, platelets 209 BEP normal AST 91, ALT 94, alkaline phosphatase normal ruq u/s IMPRESSION: Cholelithiasis without definite acute inflammatory changes. No biliary dilatation. Problem list 1. Upper GI bleed/melena 2. Transaminitis 3. Asthma versus COPD 4. Eczema 5. Leukocytosis Upper GI bleed /MELENA Black tarry stools Likely secondary to upper GI bleed given history of PUD. H/H 16.6/48.6, polycythemia likely secondary to MAXIME. Hemodynamically stable. Patient was initially diagnosed with an esophageal ulcer in 2011 by endoscopy performed at outside hospital. She was started on proton pump inhibitor but has not been compliant with it as she believes it aggravates her eczema. She was hospitalized here at [facility] in June 2014 for upper GI bleed. An endoscopy was performed which revealed multiple gastric ulcers as well as a large ulcer with a central red spot that was not actively bleeding. She had a repeat endoscopy in August 2014 which showed healing ulcers. * Admited to General Medicine. * GI consulted. Appreciate their recs. * Possible EGD this afternoon * Establish peripheral IV access in bilateral arms. * patient NPO. * Check CBC Q12 * Protonix 40 mg IV BID. * Monitor H/H and transfuse as needed to keep Hgb >7. * Avoid NSAIDs. * Type and cross. #Transaminitis: AST/ALT elevated to 91/94 on admission. Patient has had mild elevation in LFTs to 90s/50s in the past. Of unclear etiology. Denies alcohol use. Lipase with mild elevation to 346, amylase 63. * Received IV gentle hydration * LFTs improved-68, 90 * Total bilirubin 1.4 * Right upper quadrant ultrasound- Cholelithiasis without definite acute inflammatory changes. No biliary dilatation * hep Panel was negative #Asthma: Recent presentation to the ED for SOB (07/24/16) when she was discharged on prednisone taper: 40 mg x2 days (07/25-07/26), 30 mg x2 days (07/27-07/28), 20 mg x2 days (07/29-07/30) and 10 mg x2 days (07/31-08/01). * Continue [id number] Symbicort 2 puffs BID. * Continue prednisone taper. * TRC and nebs. #Eczema: * Hold cyclosporine for now although there is no reported association for GI bleed. * Apply Benadryl cream BID. * Benadryl 25 mg IV PRN for itching. Diet: NPO Fluids: D5W-1/2NS @ 100 cc/hr Pain: Tylenol 1 g PO Q6H PRN DVT PPx: ALPs CODE: FULL Problem List: 1. GI bleed 2. Eczema 3. COPD (chronic obstructive pulmonary disease) 4. DVT prophylaxis 5. Full code status Pain Ratin Pain Location: Epigastric discomfort Pain Goal: Remain pain free Pain Plan: Tylenol Tomorrow's Labs & Rationales: CBC in the setting of GI bleed
[2016-07-29 09:01] LABS: MEAN CORPUSCULAR VOLUME 115.6 FL (81.0-99.0)
--- NOTE | 2016-07-29 09:49 | ULTRASOUND REPORT ---
EXAMINATION: US ABDOMEN LIMITED CLINICAL INFORMATION: Elevated LFTs. COMPARISON: None TECHNIQUE: Real-time imaging of the right upper quadrant abdominal viscera. FINDINGS: PANCREAS: Normal. LIVER: Diffuse increased echogenicity. No focal lesion. The liver otherwise demonstrates normal size, contour and appearance. No focal lesion or intrahepatic biliary duct dilatation. GALLBLADDER: Moderate size stone gallbladder neck without acute inflammatory changes. No sonographic Lilly's sign. COMMON BILE DUCT: Normal in caliber measuring 0.8 cm in diameter. RIGHT KIDNEY: Normal. No hydronephrosis. No renal calculi or focal parenchymal lesions. The kidney measures 10.7 cm in maximum dimension. FREE FLUID: None. IMPRESSION: Cholelithiasis without definite acute inflammatory changes. No biliary dilatation.
--- NOTE | 2016-07-29 14:41 | Patient Discharge Instructions ---
Discharge Instructions General Discharge Information You were seen/treated for: UPPER GIT BLEED/ MELENA You had these procedures: UPPER ENDOSCOPY Watch for these problems: BLOOD IN THE VOMITUS, BLOOD IN STOOLS, BLACK TARRY STOOLS Special Instructions: PLEASE F/U PCP IN 1-2 WEEKS. PLEASE F/U COOK CHEF IN 1-2 WEEKS. DONOT TAKE NSAIDS. TAKE YOUR PANTOPRAZOLE TWICE DAILY Outpatient colonoscopy Diet Continue normal diet: Yes Activity Full Activity/No Limits: Yes Acute Coronary Syndrome Inclusion Criteria At DC or during hospital stay patient has or had the following: ACS DIAGNOSIS No Discharge Core Measures Meds if any: Prescribed or Continued at Discharge Meds if any: NOT Prescribed or Continued at Discharge Congestive Heart Failure Inclusion Criteria At DC or during hospital stay patient has or had the following: CHF DIAGNOSIS No Discharge Core Measures Meds if any: Prescribed or Continued at Discharge Meds if any: NOT Prescribed or Continued at Discharge Cerebrovascular accident Inclusion Criteria At DC or during hospital stay patient has or had the following: CVA/TIA Diagnosis No Discharge Core Measures Meds if any: Prescribed or Continued at Discharge Meds if any: NOT Prescribed or Continued at Discharge Venous thromboembolism Inclusion Criteria VTE Diagnosis No VTE Type NONE VTE Confirmed by (Test) NONE Discharge Core Measures - Per Current guidelines, there needs to be overlap - treatment for the first 5 days of Warfarin therapy. - If discharged on Warfarin prior to 5 days of - overlap therapy, the patient will need to be - assessed for post discharge needs including - *Post discharge parental anticoagulation - *Warfarin and/or parental anticoagulation education - *Follow up date to check INR post discharge At least 5 days overlap therapy as Inpatient No Meds if any: Prescribed or Continued at Discharge Note: Overlap Therapy is Warfarin and Anticoagulant Meds if any: NOT Prescribed or Continued at Discharge
[2016-07-29] MEDS ORDERED: PROTONIX40 M3 PO ×2 (14:43→16:26)
[2016-07-29 15:28] VITALS: BP 120/70
--- NOTE | 2016-07-29 15:52 | Cons- Gastroenterology ---
General Information and HPI Consulting Request Date of Consult: 07/29/16 Requested By: NIMO NEFF,MICHELLEChela Reason for Consult: GI bleed Source of Information: patient, old records History of Present Illness: 70-year-old female with history of COPD. She has a history of esophagitis diagnosed by endoscopy in the past. She was admitted in June 2014 with a GI bleed (hematemesis, melena) in the setting of NSAID use (she had stopped her PPI ). EGD demonstrated gastric ulcers and she was placed back on a PPI. Re- endoscopy 2 months later verified ulcer healing. The patient presents now with black tarry stool. She started having epigastric pain several days ago, after the initiation of cyclosporine. She vomited twice, without blood or black color. She denies NSAID use; she has been receiving corticosteroids for asthma. Of note she has not been compliant with PPI therapy. There is no history of liver disease, easy bleeding or bruising, or edema. FAMILY HISTORY: Negative for GI disease or liver disease. Positive for asthma in father and brother. SOCIAL HISTORY: The patient never smoked cigarettes, rarely drinks alcohol, and has never used drugs. 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 Allergies/Medications Allergies: Coded Allergies: Penicillins (Severe, ANAPHALACTIC 02/07/16) latex (Severe, "I BLEED ALL OVER" "PUS SPOTS" 02/07/16) Home Med List: Acetaminophen (Tylenol Extra Strength) 500 MG TABLET 2 TAB PO PRN PAIN ( Reported) Albuterol Sulfate (Proair Hfa) 90 MCG HFA.AER.AD 2 PUF INH PRN ASTHMA ( Reported) Ascorbic Acid (Unknown Strength) TABLET (Unknown Dose) PO DAILY SUPPLEMENT ( Reported) Budesonide/Formoterol Fumarate (Symbicort 160-4.5 Mcg Inhaler) 160 MCG-4.5 MCG/ ACTUATION HFA.AER.AD 2 PUF INH BID ASTHMA (Reported) Furosemide 20 MG TABLET 1 TAB PO PRN EDEMA (Reported) Gabapentin 300 MG CAPSULE 300 MG PO Q8 PRN Pruritis Do not take more than 3 times a day. Hydroxyzine HCl 25 MG TABLET 25 MG PO 4 TIMES/DAY PRN ITCHING Levothyroxine Sodium 125 MCG TABLET 1 TAB PO QAM THYROID HEALTH (Reported) Pantoprazole Sodium (Protonix) 40 MG TABLET.DR 1 TAB PO BID ULCERS STOMACH Please follow up with GI Prednisone 10 MG TABLET 0 PO SI Breathing Take 4 tablets daily for 2 days, starting 07/25/16. Then 3 tablets daily for 2 days. Then 2 tablets daily for 2 days. Then 1 tablet daily for 2 days. Then stop. Follow up with utility tech. Current Medications: Current Medications Sig/Desi Start time Last Medication Dose Route Stop Time Status Admin Acetaminophen 1,000 MG ONCE ONE 07/29 1145 DC 07/29 N/A 1 UNIT IV 07/29 1159 1200 Acetaminophen 1,000 MG Q6PRN PRN 07/28 2345 AC PO Albuterol Sulfate 2 PUF Q4 HRS NEEDED PRN 07/28 2345 AC INH Budesonide/ 2 PUF BID 07/29 1000 AC 07/29 Formoterol Fumarate INH 0841 Dextrose/Sodium 1,000 ML Q10H 07/28 2345 AC 07/29 Chloride IV 1135 Diphenhydramine HCl 1 SPENCER BID 07/28 2347 AC 07/29 TOP 0842 Diphenhydramine HCl 25 MG ONCE PRN 07/28 2345 IV Levothyroxine Sodium 0.125 MG DAILY AC 07/29 0700 AC 07/29 PO 0559 Ondansetron HCl 4 MG ONCE ONE 07/28 2014 DC 07/28 IV 07/28 2016 2030 Ondansetron HCl 0 .STK-MED ONE 07/28 2013 DC .ROUTE Pantoprazole Sodium 40 MG DAILY 07/29 1000 AC 07/29 IV 0840 Pantoprazole Sodium 0 .STK-MED ONE 07/28 203 DC IV Pantoprazole Sodium 40 MG ONCE ONE 07/28 2014 DC 07/28 IV 07/28 2016 204 Patient Medication 1 ED .STK-MED ONE 07/29 1356 DC Teaching ED 07/29 1357 Prednisone 20 MG DAILY 07/29 1000 AC PO 08/02 0959 Sodium Chloride 1,000 ML Q10H 07/28 2014 DC 07/28 IV 2030 Past History Travel History Traveled to [place] past 21 day No Medical History Neurological: NONE EENT: NONE Cardiovascular: NONE Respiratory: asthma, obstructive sleep apnea Gastrointestinal: GERD, peptic ulcer disease, upper GI bleed Hepatic: NONE Renal: NONE Musculoskeletal: degen joint disease, fracture (right ankle) Psychiatric: NONE Endocrine: hypothyroidism, obesity Blood Disorders: NONE Cancer(s): NONE Other Medical Hx: eczema Surgical History Surgical History: , knee replacement (bilateral), laser vein ablation right ankle ORIF Family History Relations & Conditions If Any: MOTHER (Alzheimer's disease). FATHER (hernia). FH: asthma BROTHER FH: asthma Psychosocial History Where Do You Live? Home Who Do You Live With? self Services at Home: None Primary Language: Polish Smoking Status: Never Smoked ETOH Use: denies use Illicit Drug Use: denies illicit drug use Functional Ability ADLs Independent: dressing, eating, toileting, bathing. Ambulation: independent IADLs Independent: shopping, housework, finances, food prep, telephone, transportation , medication admin. 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 EENTM: Denies: icterus, epistaxis. Cardiovascular: Denies: chest pain, syncope. Respiratory: Denies: cough, short of breath. GI: Reports: see HPI. Genitourinary: Denies: dysuria, hematuria. Musculoskeletal: Denies: muscle stiffness, neck pain. Skin: Denies: jaundice, lesions. Neurological/Psychological: Denies: cognitive dysfunction, headache. Hematologic/Endocrine: Reports: bleeding. Denies: bruising. Exam & Diagnostic Data Vital Signs and I&O Vital Signs Date Time Temp Pulse Resp B/P B/P Pulse O2 O2 Flow FiO2 Mean Ox Delivery Rate 07/29 1528 97.9 67 20 120/70 93 07/29 0630 98.9 83 18 142/78 94 Room Air 07/28 2311 98.2 79 14 140/82 93 Room Air 07/28 2303 Room Air 07/28 2215 98.6 79 16 165/76 94 Room Air 07/28 2153 96 Room Air 07/28 1740 98.1 88 18 168/94 94 Room Air Intake & Output 07/29 1600 07/29 0400 07/28 1600 07/28 0400 07/27 1600 07/27 0400 Intake Total 1600 Output Total 450 Balance 1150 Intake, IV 1600 Intake, Oral 0 Output, Urine 450 Patient 220 lb Weight Weight Reported by Patient Measurement Method Physical Exam: Well-developed well-nourished, in no apparent distress. Alert and oriented with normal cognition. Skin normal without rash, lesion, stigmata chronic liver disease or jaundice. No adenopathy. No scleral icterus, oropharyngeal lesion, rule out mass or thyromegaly. Heart regular rhythm. Lungs clear bilaterally. Abdomen is soft and nondistended with normal bowel sounds, and no tenderness, mass or organomegaly. Extremities 1+ pretibial edema. Pulses normal. Results Pertinent Lab Results: Laboratory Tests 07/29 07/29 07/29 0849 0727 0100 Chemistry Sodium (137 - 145 mmol/L) 137 Potassium (3.5 - 5.1 mmol/L) 3.9 Chloride (98 - 107 mmol/L) 100 Carbon Dioxide (22 - 30 mmol/L) 28 Anion Gap (5 - 16) 9 BUN (7 - 17 mg/dL) 10 Creatinine (0.5 - 1.0 mg/dL) 0.6 Estimated GFR (>60 ml/min) > 60 BUN/Creatinine Ratio (7 - 25 %) 16.7 Total Bilirubin (0.2 - 1.3 mg/dL) 1.4 H Direct Bilirubin (< 0.4 mg/dL) 0.5 H AST (14 - 36 U/L) 68 H ALT (9 - 52 U/L) 90 H Alkaline Phosphatase (<127 U/L) 70 Total Protein (6.3 - 8.2 g/dL) 6.1 L Albumin (3.5 - 5.0 g/dL) 3.4 L Hematology CBC w Diff NO MAN DIFF REQ WBC (4.8 - 10.8 /CUMM) 11.9 H RBC (4.20 - 5.40 /CUMM) 3.84 L Hgb (12.0 - 16.0 G/DL) 15.1 Hct (37 - 47 %) 44.3 MCV (81.0 - 99.0 FL) 115.6 H MCH (27.0 - 31.0 PG) 39.5 H RDW (11.5 - 14.5 %) 16.5 H Plt Count (130 - 400 /CUMM) 195 MPV (7.4 - 10.4 FL) 7.4 Gran % (42.2 - 75.2 %) 75.2 Lymphocytes % (20.5 - 51.1 %) 15.0 L Monocytes % (1.7 - 9.3 %) 7.0 Eosinophils % (0 - 5 %) 2.6 Basophils % (0.0 - 2.0 %) 0.2 Absolute Granulocytes (1.4 - 6.5 /CUMM) 8.9 H Absolute Lymphocytes (1.2 - 3.4 /CUMM) 1.8 Absolute Monocytes (0.10 - 0.60 /CUMM) 0.8 H Absolute Eosinophils (0.0 - 0.7 /CUMM) 0.3 Absolute Basophils (0.0 - 0.2 /CUMM) 0 PUBS MCHC (33.0 - 37.0 G/DL) 34.2 Serology Hepatitis A IgM Ab Cancelled Hep Bs Antigen Cancelled Hep B Core IgM Ab Conf Cancelled Hepatitis C Antibody Cancelled Toxicology Methadone Screen Cancelled Barbiturate Screen Cancelled Ur Phencyclidine Scrn Cancelled Amphetamines Screen Cancelled U Benzodiazepines Scrn Cancelled Urine Cocaine Screen Cancelled Urine Cannabis Screen Cancelled 07/28 7859 Chemistry Sodium (137 - 145 mmol/L) 136 L Potassium (3.5 - 5.1 mmol/L) 4.7 Chloride (98 - 107 mmol/L) 93 L Carbon Dioxide (22 - 30 mmol/L) 33 H Anion Gap (5 - 16) 9 BUN (7 - 17 mg/dL) 12 Creatinine (0.5 - 1.0 mg/dL) 0.7 Estimated GFR (>60 ml/min) > 60 BUN/Creatinine Ratio (7 - 25 %) 17.1 Glucose (65 - 99 mg/dL) 100 H Calcium (8.4 - 10.2 mg/dL) 9.5 Total Bilirubin (0.2 - 1.3 mg/dL) 1.8 H AST (14 - 36 U/L) 91 H ALT (9 - 52 U/L) 94 H Alkaline Phosphatase (<127 U/L) 82 Troponin I (< 0.11 ng/ml) 0.02 Total Protein (6.3 - 8.2 g/dL) 7.0 Albumin (3.5 - 5.0 g/dL) 4.0 Globulin (1.9 - 4.2 gm/dL) 3.0 Albumin/Globulin Ratio (1.1 - 2.2 %) 1.3 Amylase (30 - 110 U/L) 63 Lipase (23 - 300 U/L) 346 H Coagulation PT (9.4 - 12.5 SEC) 11.8 INR (0.90 - 1.19) 1.13 APTT (25 - 37 SEC) 30 Hematology CBC w Diff NO MAN DIFF REQ WBC (4.8 - 10.8 /CUMM) 12.6 H RBC (4.20 - 5.40 /CUMM) 4.19 L Hgb (12.0 - 16.0 G/DL) 16.6 H Hct (37 - 47 %) 48.6 H MCV (81.0 - 99.0 FL) 116.0 H MCH (27.0 - 31.0 PG) 39.6 H RDW (11.5 - 14.5 %) 16.8 H Plt Count (130 - 400 /CUMM) 209 MPV (7.4 - 10.4 FL) 7.0 L Gran % (42.2 - 75.2 %) 72.6 Lymphocytes % (20.5 - 51.1 %) 17.6 L Monocytes % (1.7 - 9.3 %) 7.1 Eosinophils % (0 - 5 %) 2.3 Basophils % (0.0 - 2.0 %) 0.4 Absolute Granulocytes (1.4 - 6.5 /CUMM) 9.1 H Absolute Lymphocytes (1.2 - 3.4 /CUMM) 2.2 Absolute Monocytes (0.10 - 0.60 /CUMM) 0.9 H Absolute Eosinophils (0.0 - 0.7 /CUMM) 0.3 Absolute Basophils (0.0 - 0.2 /CUMM) 0 PUBS MCHC (33.0 - 37.0 G/DL) 34.1 Serology Hepatitis A IgM Ab (NONREACTIVE) NONREACTIVE Hep Bs Antigen (NONREACTIVE) NONREACTIVE Hep B Core IgM Ab Conf (NONREACTIVE) NONREACTIVE Hepatitis C Antibody (NONREACTIVE) NONREACTIVE Assessment/Plan Assessment/Recommendations: Patient with a history of esophagitis, and gastric ulcers, presents with several days of epigastric pain, and melena. Hematocrit and vital signs are stable. There has been no reported NSAID use, but the patient has been on cyclosporine and corticosteroids. Transaminitis, mild. Differential diagnosis includes fatty liver, drug-induced, viral, hemodynamic/ischemic, metabolic, etc. Recommendations * Nothing by mouth, IV fluids * CBC twice daily * Type and screen * IV PPI * Follow-up LFTs and INR; hepatitis serologies; ultrasound of the liver * EGD to be performed; further recommendations to follow Consult Acknowledgment - Thank you for your consult request.
--- NOTE | 2016-07-29 15:54 | Proc Note Endoscopy ---
Endoscopy Procedure Procedure Date: 07/29/16 Procedure Type: EGD w/biopsy Community Recreation Coordinator: Zackery Moss M.D. ASA Classification: III Indications: GI bleed History of peptic ulcer disease Instrument: diagnostic gastroscope Meds Received: MAC (O2 via mask) Patient's Tolerance: fair (desaturation, quickly correcte) Complications: none Extent Reached: second part of duodenum Procedure: The patient signed informed consent, and was medicated. Hurricaine pharyngeal spray was administered. Pulse oximetry, blood pressure and cardiac monitoring were performed continuously throughout the procedure. The Olympus high- definition gastroscope was inserted into the mouth and advanced to the duodenum. Early on in the procedure, the patient desaturated to the 60s. With the application of an oxygen mask, saturation emily to the 90s and remained there throughout the remainder the procedure. Retroflexion was performed within the stomach to examine the cardia. Careful examination was performed. Findings: Esophagus had normal caliber and contour. The mucosa was intact throughout. There were no varices. The GE junction at 40 cm was normal. The stomach had normal distention and active peristalsis. There was no blood within the gastric cavity. The cardia was normal. Mucosa and folds of the fundus, body and incisura were normal. In the prepyloric antrum was edema and deformity, and a greater than 1 cm deep ulcer with overlying eschar. There was no clot, or visible vessel. There was a second smaller shallow clean based ulceration. 2 distal antral biopsies were obtained. The pyloric channel was normal. The duodenal bulb was normal. Mucosa and folds of the duodenal sweep were normal. Impression: * Antral ulcers Recommendations: * Await pathology * Regular diet * Oral PPI twice a day * No aspirin or NSAIDs * If CBC stable in the morning, may discharge from a gastroenterology standpoint with outpatient follow-up * Outpatient colonoscopy CC: CALDERON NEFF,JASON Hartmann
[2016-07-29 16:15] VITALS: BP 140/80
--- NOTE | 2016-07-29 16:24 | NUR ---
PT ARRIVED BACK FROM GI SUITE AT 1615, PT A/V/OX3. ON RA, IND. VITALS STABLE: 140/80, P 71, T 98.2, RR 18, AND O2 SA 94% ON RA. PT DENIES ANY PAIN. DIET CHANGED FROM NPO TO REGULAR. DINNER ORDERED. WILL CONTINUE TO MONITOR.
--- NOTE | 2016-07-29 17:16 | Discharge Summary ---
Visit Information Visit Dates Admission Date: 07/28/16 Discharge Date: 07/30/2016 Hospital Course Course Attending Physician: MATHEW SUERO MD Primary Care Physician: CALDERON NEFF,JASON Hartmann Other Care Providers: Dr. Moss Consulting Request: Consulting Specialty: Gastroenterology Hospital Course: 70 y/o F with PMHx of asthma, PUD c/b upper GI bleed and eczema who presents with black tarry stool. she takes one Tylenol pill everyday for the pain and denies NSAID use. Of note, patient has received multiple courses of steroids for asthma exacerbations. Most recently she was seen in the ED four days prior to current presentation for shortness of breath and discharged on prednisone taper. Vitals at the time of admission-afebrile, heart rate 88, respiratory rate 18, blood pressure 160/90, saturating at 94% on room air. Pertinent labs on admission- WBC 12.6, hemoglobin 16, hematocrit 48, platelets 209 BEP normal AST 91, ALT 94, alkaline phosphatase normal ruq u/s IMPRESSION: Cholelithiasis without definite acute inflammatory changes. No biliary dilatation. Upper GI bleed /MELENA Black tarry stools Likely secondary to upper GI bleed given history of PUD. H/H 16.6/48.6, she was Hemodynamically stable. Patient was initially diagnosed with an esophageal ulcer in 2011 by endoscopy performed at outside hospital. She was started on proton pump inhibitor but has not been compliant with it as she believes it aggravates her eczema. She was hospitalized here at [facility] [facility] in June 2014 for upper GI bleed. An endoscopy was performed which revealed multiple gastric ulcers as well as a large ulcer with a central red spot that was not actively bleeding. She had a repeat endoscopy in August 2014 which showed healing ulcers. we Admited her to General Medicine. GI was consulted. Upper endoscopy was done which showed antral ulcers. Her H&H was stable. Denied any hematemesis and melena. she tolerated diet;.She was discharged on oral pantoprazole 40 mg twice a day. Advised her not to take aspirin and NSAIDS. Advised to follow Dr. Isa cárdenas as outpatient to follow up with pathology results and to get outpatient colonoscopy. #Transaminitis: AST/ALT elevated to 91/94 on admission. Patient has had mild elevation in LFTs to 90s/50s in the past. Of unclear etiology. Denies alcohol use. Lipase with mild elevation to 346, amylase 63. Received IV gentle hydration and LFTs improved-68, 90.Total bilirubin 1.4 Right upper quadrant ultrasound- Cholelithiasis without definite acute inflammatory changes. No biliary dilatation and hep Panel was negative #Asthma: Recent presentation to the ED for SOB (07/24/16) when she was discharged on prednisone taper: 40 mg x2 days (07/25-07/26), 30 mg x2 days (07/27-07/28), 20 mg x2 days (07/29-07/30) and 10 mg x2 days (07/31-08/01). Continued [id number] Symbicort 2 puffs BID. Continued prednisone taper and TRC and nebs. #Eczema: cyclosporine was held in the hospital although there is no reported association for GI bleed. She Was given Benadryl cream BID. Received Benadryl 25 mg IV PRN for itching. Complications: none Allergies: Coded Allergies: Penicillins (Severe, ANAPHALACTIC 02/07/16) latex (Severe, "I BLEED ALL OVER" "PUS SPOTS" 02/07/16) Significant Procedures: Upper endoscopy with biopsy Impression: * Antral ulcers Pertinent Lab Results: RUQ U/S IMPRESSION: Cholelithiasis without definite acute inflammatory changes. No biliary dilatation. Disposition Summary Disposition Principal Diagnosis: Upper GI bleed/melena Additional Diagnosis: History of peptic ulcer disease Discharge Disposition: home or self care Discharge Instructions General Discharge Information Code Status: Full Code Patient's Diet: As tolerated Patient's Activity: Tolerated Follow-Up Instructions/Appts: Follow-up primary care doctor in 1-2 weeks Follow-up pipe line repairer Dr. Moss in 1-2 weeks and follow up pathology results Please take oral pantoprazole twice a day No aspirin No NSAIDS Needs outpatient colonoscopy Medications at Discharge Discharge Medications: Continue taking these medications: Budesonide/Formoterol Fumarate (Symbicort 160-4.5 Mcg Inhaler) 160 MCG-4.5 MCG/ ACTUATION HFA.AER.AD 2 Puff Inhale through mouth TWICE DAILY Qty = 10 Comments: Last Taken: 07/30/16 Time: 10 AM Albuterol Sulfate (Proair Hfa) 90 MCG HFA.AER.AD 2 Puff Inhale through mouth as needed for ASTHMA Qty = 9 Comments: Last Taken: NOT GIVEN IN HOSPITAL Time: Furosemide (Furosemide) 20 MG TABLET 1 Tablet ORAL as needed for EDEMA Qty = 90 Comments: NOT TAKEN IN HOSPITAL Ascorbic Acid (Ascorbic Acid) (Unknown Strength) TABLET Unknown Dose ORAL DAILY Comments: NOT TAKEN IN HOSPITAL Acetaminophen (Tylenol Extra Strength) 500 MG TABLET 2 Tablet ORAL as needed for PAIN Comments: Last Taken: 07/29/16 Time: 12 NOON ( IV GIVEN IN HOSPITAL) Levothyroxine Sodium (Levothyroxine Sodium) 125 MCG TABLET 1 Tablet ORAL Every Morning Days = 30 Comments: LAST TAKEN: 07/30/16 06:00 AM Gabapentin (Gabapentin) 300 MG CAPSULE 300 Milligram ORAL EVERY 8 HOURS as needed for Pruritis Days = 30 Instructions: Do not take more than 3 times a day. Comments: Last Taken:NOT GIVEN IN HOSPITAL Time: Hydroxyzine HCl (Hydroxyzine HCl) 25 MG TABLET 25 Milligram ORAL 4 TIMES A DAY as needed for ITCHING Days = 30 Comments: Last Taken:NOT GIVEN IN HOSPITAL Time: Prednisone (Prednisone) 10 MG TABLET 0 ORAL See Instructions Days = 8 Instructions: Take 4 tablets daily for 2 days, starting 07/25/16. Then 3 tablets daily for 2 days. Then 2 tablets daily for 2 days. Then 1 tablet daily for 2 days. Then stop. Follow up with state's attorney. Comments: Last Taken:07/30/16 Time:1000 Start taking the following new medications: Pantoprazole Sodium (Protonix) 40 MG TABLET.DR 1 Tablet ORAL TWICE DAILY Qty = 60 No Refills Instructions: Please follow up with GI Comments: Last Taken:07/30/16 Time:1000 ( PRILOSEC GIVEN IN HOSPITAL ) Copies To: ISA NEFF,TON Reyes
[2016-07-29 22:35] VITALS: BP 118/68
[2016-07-30 07:48] VITALS: BP 122/74
--- NOTE | 2016-07-30 08:10 | PN- Housestaff ---
DELANEY NEFF,TAL 07/30/16 0810: Subjective Follow-up For: gi bleed Subjective: pt sp endoscopy, doing well, h/h stable, all dressed up to go home. Review of Systems Constitutional: Reports: see HPI. Objective Last 24 Hrs of Vital Signs/I&O Vital Signs Date Time Temp Pulse Resp B/P B/P Pulse O2 O2 Flow FiO2 Mean Ox Delivery Rate 07/30 0748 97.9 62 20 122/74 95 Room Air 07/29 2235 98.0 67 20 118/68 91 Room Air 07/29 1615 98.2 71 18 140/80 94 Room Air 07/29 1528 97.9 67 20 120/70 93 Intake & Output 07/30 1600 07/30 0800 07/30 0000 Intake Total 120 600 Output Total Balance 120 600 Intake, Oral 120 600 Physical Exam General Appearance: Alert, Oriented X3, Cooperative Cardiovascular: Regular Rate, Normal S1, Normal S2 Lungs: Clear to Auscultation, Normal Air Movement Abdomen: Normal Bowel Sounds, Soft, No Tenderness Current Medications: Current Medications Sig/Desi Start time Last Medication Dose Route Stop Time Status Admin Acetaminophen 1,000 MG ONCE ONE 07/29 1145 DC 07/29 N/A 1 UNIT IV 07/29 1159 1200 Acetaminophen 1,000 MG Q6PRN PRN 07/28 2345 AC PO Albuterol Sulfate 2 PUF Q4 HRS NEEDED PRN 07/28 2345 AC INH Benzocaine 1 SPENCER .STK-MED ONE 07/29 1559 DC TOP 07/29 1600 Budesonide/ 2 PUF BID 07/29 1000 AC 07/30 Formoterol Fumarate INH 1001 Dextrose/Sodium 1,000 ML Q10H 07/28 2345 DC 07/29 Chloride IV 1135 Diphenhydramine HCl 1 SPENCER BID 07/28 2347 AC 07/29 TOP 2113 Diphenhydramine HCl 25 MG ONCE PRN 07/28 2345 AC IV Levothyroxine Sodium 0.125 MG DAILY AC 07/29 0700 AC 07/30 PO 0543 Lidocaine 2 SPENCER .STK-MED ONE 07/29 1559 DC TOP 07/29 1600 Omeprazole 40 MG BID 07/29 2200 AC 07/30 PO 1001 Pantoprazole Sodium 40 MG DAILY 07/29 1000 DC 07/29 IV 0840 Patient Medication 1 UNIT ONE NR 07/29 1645 DC Teaching ED 07/29 1700 Patient Medication 1 ED .STK-MED ONE 07/29 1356 [facility] ED 07/29 1357 Prednisone 10 MG ONCE ONE 07/29 1715 DC 07/29 PO 07/29 1716 1718 Prednisone 20 MG DAILY 07/29 1000 AC 07/30 PO 08/02 0959 1002 Last 24 Hrs of Lab/Carlos Results Last 24 Hrs of Labs/Mics: Laboratory Tests 07/30/16 0650: Anion Gap 10, Estimated GFR > 60, BUN/Creatinine Ratio 20.0, CBC w Diff NO MAN DIFF REQ, RBC 3.78 L, MCV 116.7 H, MCH 39.5 H, RDW 16.6 H, MPV 7.9, Gran % 90.8 H, Lymphocytes % 6.2 L, Monocytes % 2.9, Eosinophils % 0.1, Basophils % 0 L, Absolute Granulocytes 11.7 H, Absolute Lymphocytes 0.8 L, Absolute Monocytes 0.4, Absolute Eosinophils 0, Absolute Basophils 0, PUBS MCHC 33.8 Assessment/Plan Assessment: 70 y/o F with PMHx of asthma, PUD c/b upper GI bleed and eczema who presents with black tarry stool. she took one Tylenol pill for the pain and denies NSAID use. Of note, patient has received multiple courses of steroids for asthma exacerbations. Most recently she was seen in the ED four days prior to current presentation for shortness of breath and discharged on prednisone taper. Vitals at the time of admission-afebrile, heart rate 88, respiratory rate 18, blood pressure 160/90, saturating at 94% on room air. Pertinent labs on admission- WBC 12.6, hemoglobin 16, hematocrit 48, platelets 209 BEP normal AST 91, ALT 94, alkaline phosphatase normal ruq u/s IMPRESSION: Cholelithiasis without definite acute inflammatory changes. No biliary dilatation. Problem list 1. Upper GI bleed/melena 2. Transaminitis 3. Asthma versus COPD 4. Eczema 5. Leukocytosis Upper GI bleed /MELENA Black tarry stools Likely secondary to upper GI bleed given history of PUD. H/H 16.6/48.6, polycythemia likely secondary to MAXIME. Hemodynamically stable. Patient was initially diagnosed with an esophageal ulcer in 2011 by endoscopy performed at outside hospital. She was started on proton pump inhibitor but has not been compliant with it as she believes it aggravates her eczema. She was hospitalized here at [facility] in June 2014 for upper GI bleed. An endoscopy was performed which revealed multiple gastric ulcers as well as a large ulcer with a central red spot that was not actively bleeding. She had a repeat endoscopy in August 2014 which showed healing ulcers. * Admited to General Medicine. * GI consulted. Appreciate their recs. * EGD showed antral ulcers , ppi changed to bid * Establish peripheral IV access in bilateral arms. * Tolerated diet, H/h stable. stable for dc * Protonix 40 mg IV BID. * Monitor H/H and transfuse as needed to keep Hgb >7 * Avoid NSAIDs. * Type and cross. #Transaminitis: AST/ALT elevated to 91/94 on admission. Patient has had mild elevation in LFTs to 90s/50s in the past. Of unclear etiology. Denies alcohol use. Lipase with mild elevation to 346, amylase 63. * Received IV gentle hydration * LFTs improved-68, 90 * Total bilirubin 1.4 * Right upper quadrant ultrasound- Cholelithiasis without definite acute inflammatory changes. No biliary dilatation * hep Panel was negative #Asthma: Recent presentation to the ED for SOB (07/24/16) when she was discharged on prednisone taper: 40 mg x2 days (07/25-07/26), 30 mg x2 days (07/27-07/28), 20 mg x2 days (07/29-07/30) and 10 mg x2 days (07/31-08/01). * Continue kenyo-ow-otehnqyic Symbicort 2 puffs BID. * Continue prednisone taper. * TRC and nebs. #Eczema: * Hold cyclosporine for now although there is no reported association for GI bleed. * Apply Benadryl cream BID. * Benadryl 25 mg IV PRN for itching. Pain: Tylenol 1 g PO Q6H PRN DVT PPx: ALPs CODE: FULL Problem List: 1. GI bleed Pain Ratin Pain Location: none Pain Goal: Pain 4 or less Pain Plan: none Tomorrow's Labs & Rationales: none DVT/Prophylaxis: mechanical Consulting Request: Consulting Specialty: Gastroenterology DELORIS STEPHENSON MD 07/30/16 1422: Attending MD Review Statement Attending Statement Attending MD Statement: examined this patient, discuss w/resident/PA/HAND INSERTER OPERATOR, agreed w/resident/PA/HAND INSERTER OPERATOR, reviewed EMR data (avail), discussed with nursing, reviewed images, amended to note Attending Assessment/Plan: Patient seen and examined, feels well. Offers no complaint. Ready to go home. Vital signs are stable, H&H stable. Status post endoscopy which shows antral ulcers. PPI has been increased to twice a day. H&H stable. Patient medical stable for discharge home today. stable for discharge home today.
[2016-07-30 08:43] LABS: ABSOLUTE BASOPHIL COUNT 0 /CUMM (0.0-0.2); ABSOLUTE EOSINOPHIL COUNT 0 /CUMM (0.0-0.7); ABSOLUTE GRANULOCYTE CT 11.7 /CUMM (1.4-6.5); ABSOLUTE LYMPH COUNT 0.8 /CUMM (1.2-3.4); ABSOLUTE MONOCYTE COUNT 0.4 /CUMM (0.10-0.60); BASOPHIL % 0 % (0.0-2.0); EOSINOPHIL % 0.1 % (0-5); HEMATOCRIT 44.1 % (37-47); MEAN CORPUSCULAR HGB 39.5 PG (27.0-31.0); MEAN CORPUSCULAR HGB CONC 33.8 G/DL (33.0-37.0); MEAN PLATELET VOLUME 7.9 FL (7.4-10.4); RBC DISTRIBUTION WIDTH 16.6 % (11.5-14.5); RED BLOOD CELL CT 3.78 /CUMM (4.20-5.40); WHITE BLOOD CELL COUNT 12.9 /CUMM (4.8-10.8)
[2016-07-30 09:54] LABS: MEAN CORPUSCULAR VOLUME 116.7 FL (81.0-99.0); PLATELET COUNT 181 /CUMM (130-400)
[2016-07-30 09:55] LABS: GRANULOCYTE % 90.8 % (42.2-75.2)
[2016-07-30] MEDS ORDERED: PROTONIX40 M3 PO (10:20)
== END 2016-07-30 11:34 | DRG 379 ==
LOC: ERH 17:36 → 2NA 21:06 → ERHI 21:06 → 2NA 21:06 → ENRESERV 22:06 → 2NA 22:53 → ENPENDDIS 07-30 10:56 → 2NA 07-30 11:34
PROVIDERS: Emergency Medicine; Student in an Organized Health Care Education/Training Program; ADMIT Student in an Organized Health Care Education/Training Program
PROC: 0DB68ZX Excision of Stomach, Via Natural or Artificial Opening Endoscopic, Diagnostic (ICD-10-PCS; principal; 2016-07-29)
DX: K25.4 Chronic or unspecified gastric ulcer with hemorrhage (principal); J44.9 Chronic obstructive pulmonary disease, unspecified; E66.01 Morbid (severe) obesity due to excess calories; D75.1 Secondary polycythemia; J45.909 Unspecified asthma, uncomplicated; K21.9 Gastro-esophageal reflux disease without esophagitis; E03.9 Hypothyroidism, unspecified; Z68.38 Body mass index [BMI] 38.0-38.9, adult; L30.9 Dermatitis, unspecified; G47.33 Obstructive sleep apnea (adult) (pediatric)
CPT/HCPCS: 2NASP; 36415; 80307; 82436; 88305; 88312; 93005; 93010; 96361; 96374; 96375; J0131; J2405; J3490; J7042; J7512